=== PATIENT | male | born 1950 | race Caucasian/White ===

== ENCOUNTER → 2017-08-26 | Outpatient (CLI) | payer MEDICARE, BC | LOC: CARD 14:40 | PROVIDERS: ATTEND Family Medicine | DX: R01.1 Cardiac murmur, unspecified (principal); I35.0 Nonrheumatic aortic (valve) stenosis; Z86.73 Personal history of transient ischemic attack (TIA), and cerebral infarction without residual deficits | CPT/HCPCS: 93306 ==

== ENCOUNTER → 2017-09-30 | Outpatient (CLI) | payer MEDICARE, BC ==
--- NOTE | 2017-09-30 13:05 | Diagnostic Imaging Report ---
INDICATION: Dysphagia and prior history of stroke. TECHNIQUE: The study was performed in conjunction with Speech Pathology. Videofluoroscopy was performed during the swallowing of barium in multiple consistencies. FINDINGS: The patient ingested thin liquid as well as pur?e, mechanical soft, and solid consistencies. The oral phase is unremarkable. There is some mild early spillover with multiple consistencies. There is normal epiglottic tilt and laryngeal elevation. No penetration or aspiration was observed. A total of 1 minute 59 seconds of fluoroscopy was utilized. IMPRESSION: Essentially unremarkable modified barium swallow apart from mild early spillover and minimal vallecular residue which did clear with a second swallow. No penetration or aspiration was observed. Dictated by: Dictated on workstation # [id number]
== END ==
LOC: RAD 10:22
PROVIDERS: ATTEND Nurse Practitioner Family
DX: R13.10 Dysphagia, unspecified (principal); Z86.73 Personal history of transient ischemic attack (TIA), and cerebral infarction without residual deficits
CPT/HCPCS: 74230

== ENCOUNTER 2017-10-10 09:34 | Day surgery (SDC) | payer MEDICARE, BC ==
[~2017-10-10] VITALS: Ht 167.6 cm; Wt 86.2 kg
[2017-10-10 09:53] VITALS: BP 135/85
[2017-10-10] MEDS ORDERED: LIDOCAINE 1% INJ 20 ML 20 ML VIAL ONE ×2 (10:07→10:42)
[2017-10-10 11:08] VITALS: BP 128/62
--- NOTE | 2017-10-10 14:11 | Implantation of Loop Monitor ---
Implant of Loop Monitior PROCEDURE PHYSICIAN: Alexis Lancaster MD IMPLANTATION OF LOOP MONITOR REPORT DATE OF PROCEDURE: 10/10/17 ATTENDING PHYSICIAN: Dr. Lloyd Lancaster. REFERRING PHYSICIAN: PERFORMING PHYSICIAN: Dr. Lloyd Lancaster. INDICATION: Cryptogenic stroke. PREOP DIAGNOSIS: Cryptogenic stroke. POSTOP DIAGNOSIS: s/p implantation of loop recorder. PROCEDURE DETAILS: The patient is a 67 male with history of cryptogenic stroke. Therefore implantable loop recorder was discussed and agreed with the patient. Informed consent was taken. All risks and complications were discussed at length. The patient was draped and prepped in the usual sterile fashion. Local anesthesia was lidocaine, which was given in the substernal area close to the 4th intercostal space. Alearonik loop monitor was implanted according to the protocol. Steri-Strips were placed at the end of the procedure. There were no complications and the patient tolerated the procedure well. The device was interrogated with a voltage of 0.72mV. ANESTHESIA: Local anesthesia with lidocaine. COMPLICATIONS: None CONTRAST/FLUOROSCOPY: None CONCLUSION: 1. Successful implantation of loop monitor for cryptogenic stroke. 2. No complication and the patient tolerated the procedure well. Alexis Lancaster MD, [facility], CCDS Cardiac Electrophysiology Genesis LANCASTER MD Oct 10, 2017 2:11 pm
== END 2017-10-10 11:10 | disposition home or self-care (01) ==
LOC: CATH 09:34
PROVIDERS: ATTEND Internal Medicine Interventional Cardiology
DX: R01.1 Cardiac murmur, unspecified (principal); I69.391 Dysphagia following cerebral infarction; I69.398 Other sequelae of cerebral infarction; R26.2 Difficulty in walking, not elsewhere classified; I10 Essential (primary) hypertension; E78.5 Hyperlipidemia, unspecified; I35.0 Nonrheumatic aortic (valve) stenosis; R06.02 Shortness of breath; Z79.82 Long term (current) use of aspirin
CPT/HCPCS: 33282

== ENCOUNTER 2017-11-28 08:39 | Inpatient (IN) | payer MEDICARE, BC ==
[~2017-11-28] VITALS: Ht 167.6 cm; Wt 81.6 kg
[2017-11-28] VITALS (35 sets, daily range): BP systolic 52–180; BP diastolic 20–124
[2017-11-28] MEDS ORDERED: LIDOCAINE 1% INJ 20 ML 20 ML VIAL ONE (09:06)
[2017-11-28] MEDS ORDERED: NS IV 1000 ML 3,000 ML ONE (09:06)
[2017-11-28] MEDS ORDERED: NS IV 1000 ML 1,000 ML IV SCH (09:18)
--- OUTSIDE RECORDS SUMMARY | 2017-11-28 09:20 | XMS REPORT | CCD ---
Author Author [facility]is [facility]ado Organization [facility] Address [address] [place] [address] Phone Care Team Providers Care Field Collector Name Role Phone PP Unavailable CCM Unavailable Summary Purpose Interface Exchange Insurance Providers Payer name Policy type / Coverage type Covered constitution party ID Effective Begin Date Effective End Date WPS Medicare Part B Blue Cross/Blue Shield [id number] 2017 Unknown Blue Cross Blue Shield [facility] Blue Cross/Blue Shield [id number] 2017 Unknown Family history Sister Diagnosis Age At Onset Breast cancer Unknown Osteoporosis Unknown Arthritis Unknown Mother Diagnosis Age At Onset Osteoporosis Unknown Social History Social History Element Codes Description Effective Dates Marital status Unknown [place] 07/29/2017 Number of children Unknown 0 07/29/2017 Employment Unknown 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 Active 07/29/2017 Unknown Nonrheumatic aortic (valve) stenosis ICD-9: 424.1 ICD-10: I35.0 Active 10/30/2017 Unknown Unsteadiness on feet ICD-9: 781.2 ICD-10: R26.81 Active 10/30/2017 Unknown Aphasia ICD-9: 784.3 ICD-10: R47.01 Active 08/26/2017 Unknown Cerebral atherosclerosis ICD-9: 437.0 ICD-10: I67.2 Active 07/29/2017 Unknown Cardiac murmur, unspecified ICD-9: 785.2 ICD-10: R01.1 Active 07/29/2017 Unknown Personal history of other diseases of the circulatory system ICD-9: V12.59 ICD-10: Z86.79 Active 07/29/2017 Unknown Problems Condition Codes Effective Dates Condition Status Elevated prostate specific antigen [PSA] ICD-9: 790.93 ICD-10: R97.20 08/26/2017 Active Essential (primary) hypertension ICD-9: 401.1 ICD-10: I10 07/29/2017 Active 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 ICD-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 07/29/2017 Active Nonrheumatic aortic (valve) stenosis ICD-9: 424.1 ICD-10: I35.0 10/30/2017 Active Unsteadiness on feet ICD-9: 781.2 ICD-10: R26.81 10/30/2017 Active Aphasia ICD-9: 784.3 ICD-10: R47.01 08/26/2017 Active Cerebral atherosclerosis ICD-9: 437.0 ICD-10: I67.2 07/29/2017 Active Cardiac murmur, unspecified ICD-9: 785.2 ICD-10: R01.1 07/29/2017 Active Personal history of other diseases of the circulatory system ICD-9: V12.59 ICD-10: Z86.79 07/29/2017 Active Medications Medication Codes Instructions Start Date Stop Date Status Fill Instructions Flonase Allergy Relief 50 mcg/actuation nasal spray, suspension RxNorm: 7952272 1 [place] NASAL BID 09/17/20172017 Active Flonase Allergy Relief 50 mcg/actuation nasal spray, suspension RxNorm: 1740715 1 [place] NASAL BID 09/17/20172017 Inactive rosuvastatin 20 mg tablet RxNorm: 186623 1 Tablet(s) PO QPM 02/23/2018 Active saw palmetto 160 mg capsule RxNorm: 361403 1 Capsule(s) PO daily 07/29/2017 No Stop Date Active clopidogrel 75 mg tablet RxNorm: 652910 1 Tablet(s) PO daily 02/23/2018 Active losartan 50 mg tablet RxNorm: 708491 1 Tablet(s) PO daily 201702/23/2018 Active aspirin 81 mg tablet RxNorm: 069233 1 Tablet(s) PO daily No Start Date Active lycopene 10 mg capsule RxNorm: 717231 1 Capsule(s) PO daily No Start Date Active Vitamin D2 1,000 unit capsule RxNorm: 909910 Capsule(s) PO No Start Date Active Multivitamin 50 Plus oral RxNorm: 07450 oral No Start Date Active Medication Administered No Medication Administered data Immunizations No Immunization data Assessments Condition Codes Effective Dates Essential (primary) hypertension ICD-10: I10 ICD-9: 401.1 10/30/2017 Unsteadiness on feet ICD-10: R26.81 ICD-9: 781.2 10/30/2017 Fluency disorder following cerebral infarction ICD-10: I69.323 ICD-9: 438.14 10/30/2017 Elevated prostate specific antigen [PSA] ICD-10: R97.20 ICD-9: 790.93 10/30/2017 Nonrheumatic aortic (valve) stenosis ICD-10: I35.0 ICD-9: 424.1 10/30/2017 Aphasia ICD-10: R47.01 ICD-9: 784.3 08/26/2017 Cerebral atherosclerosis ICD-10: I67.2 ICD-9: 437.0 08/26/2017 Personal history of other diseases of the circulatory system ICD-10: Z86.79 ICD-9: V12.59 07/29/2017 Cardiac murmur, unspecified ICD-10: R01.1 ICD-9: 785.2 07/29/2017 Reason For Visit Reason For Visit Effective Dates Notes hypertension 10/30/2017 hypertension 08/26/2017 hypertension 07/29/2017 Results Observation Observation Code Item Item Code Result Date Cbc With Differential Ord2 WBC 8.58 K/ul 08/16/2017 Cbc With Differential Ord2 RBC 5.92 M/ul 08/16/2017 Cbc With Differential Ord2 HGB 18.1 g/dl 08/16/2017 Cbc With Differential Ord2 Neut% 58.7 % 08/16/2017 Cbc With Differential Ord2 HCT 54.3 % 08/16/2017 Cbc With Differential Ord2 MCV 91.7 fl 08/16/2017 Cbc With Differential Ord2 Lymph% 29.4 % 08/16/2017 Cbc With Differential Ord2 MCH 30.6 pg 08/16/2017 Cbc With Differential Ord2 [place]% 9.6 % 08/16/2017 Cbc With Differential Ord2 MCHC 33.3 pg 08/16/2017 Cbc With Differential Ord2 Eos% 2.1 % 08/16/2017 Cbc With Differential Ord2 PLT 213 K/ul 08/16/2017 Cbc With Differential Ord2 Baso% 0.2 % 08/16/2017 Cbc With Differential Ord2 RDW 13.7 % 08/16/2017 Cbc With Differential Ord2 Neut ABS# 5.04 K/ul 08/16/2017 Cbc With Differential Ord2 Lymph ABS# 2.52 K/ul 08/16/2017 Cbc With Differential Ord2 [place] ABS# 0.8 K/ul 08/16/2017 Cbc With Differential Ord2 Eos ABS# 0.2 K/ul 08/16/2017 Cbc With Differential Ord2 Baso ABS# 0.0 K/ul 08/16/2017 Lipid Ord30 CHOL 208 mg/dL 08/16/2017 Lipid Ord30 HDL 39.0 mg/dl 08/16/2017 Lipid Ord30 TRIG 161 mg/dL 08/16/2017 Lipid Ord30 LDL 137 mg/dL 08/16/2017 Lipid Ord30 C/HDL 5.3 Ratio 08/16/2017 Total Psa Ord10 PSA 33.62 ng/mL 08/16/2017 Comp Metabolic Frc735 NA 141 mEq/L 08/16/2017 Comp Metabolic Jxy523 K 3.9 mEq/L 08/16/2017 Comp Metabolic Jqo321 CL 104 mEq/L 08/16/2017 Comp Metabolic Gbw794 CO2 26.0 mEq/L 08/16/2017 Comp Metabolic Mrm447 ANION GAP 15 08/16/2017 Comp Metabolic Eqy322 GLUCOSE 115 mg/dL 08/16/2017 Comp Metabolic Wzh663 Creat 1.4 mg/dL 08/16/2017 Comp Metabolic Tro672 eGFR 55 ml/min/1.73m2 08/16/2017 Comp Metabolic Icc563 BUN 16 mg/dL 08/16/2017 Comp Metabolic Qkq373 B/C Ratio 11.8 Ratio 08/16/2017 Comp Metabolic Pxs012 CALCIUM 9.4 mg/dL 08/16/2017 Comp Metabolic Qmg902 ALK PHOS 79 U/L 08/16/2017 Comp Metabolic Owi803 AST(SGOT) 17 U/L 08/16/2017 Comp Metabolic Fdp430 ALT(SGPT) 30 U/L 08/16/2017 Comp Metabolic Qqo933 BILI T 0.6 mg/dL 08/16/2017 Comp Metabolic Kno718 ALBUMIN 4.1 g/dL 08/16/2017 Comp Metabolic Pyf473 TPRO 7.0 g/dL 08/16/2017 Comp Metabolic Ovv791 GLOB 2.9 g/dL 08/16/2017 Comp Metabolic Ejb086 A/G Ratio 1.4 Ratio 08/16/2017 Comp Metabolic Gtu924 Osmo 283 mOsmo 08/16/2017 Tsh Ord6 TSH (3rd IS) 4.22 uIU/mL 08/16/2017 Review of Systems System Result Effective Dates Constitutional No recent illness 2017 Constitutional No chills 10/30/2017 Constitutional fatigue 10/30/2017 Constitutional No fever 10/30/2017 Constitutional No malaise 10/30/2017 Eyes No blindness 10/30/2017 Eyes No vision change 10/30/2017 Ears/Nose/Throat/Neck No dizziness 2017 Ears/Nose/Throat/Neck No hearing loss Ears/Nose/Throat/Neck No hoarseness 10/30 Ears/Nose/Throat/Neck No snoring 2017 Ears/Nose/Throat/Neck No voice change Cardiovascular No chest pain/pressure Cardiovascular No edema 10/30/2017 Cardiovascular exercise intolerance 10/30 Cardiovascular fatigue 10/30/2017 Cardiovascular hypertension 10/30/2017 Respiratory No chest tightness 2017 Respiratory No cigarette smoking 2017 Respiratory No cough 10/30/2017 Gastrointestinal No abdominal pain 2017 Gastrointestinal No constipation 2017 Gastrointestinal No diarrhea 10/30/2017 Genitourinary/Nephrology No urinary urgency 10/30/2017 Genitourinary/Nephrology No urinary frequency 10/30/2017 Genitourinary/Nephrology No urinary incontinence 10/30/2017 Musculoskeletal stiffness 10/30/2017 Musculoskeletal swelling 10/30/2017 Musculoskeletal arthralgia(s) 10/30/2017 Musculoskeletal muscle weakness 2017 Dermatologic No rash 10/30/2017 Dermatologic No sores 10/30/2017 Neurologic gait abnormality 10/30/2017 Neurologic memory loss 10/30/2017 Neurologic speech difficulties 2017 Neurologic weakness 10/30/2017 Psychiatric No anxiety 10/30/2017 Psychiatric depression 10/30/2017 Constitutional No recent illness 2017 Constitutional No chills 08/26/2017 Constitutional fatigue 08/26/2017 Constitutional No fever 08/26/2017 Constitutional No malaise 08/26/2017 Eyes No blindness 08/26/2017 Eyes No vision change 08/26/2017 Ears/Nose/Throat/Neck No dizziness 2017 Ears/Nose/Throat/Neck No hearing loss 01/2018 Ears/Nose/Throat/Neck No hoarseness 08/26 Ears/Nose/Throat/Neck No snoring 2017 Ears/Nose/Throat/Neck No voice change 01/2018 Cardiovascular No chest pain/pressure 01/2018 Cardiovascular No edema 08/26/2017 Cardiovascular exercise intolerance 08/26 Cardiovascular fatigue 08/26/2017 Cardiovascular hypertension 08/26/2017 Respiratory No chest tightness 2017 Respiratory No cigarette smoking 2017 Respiratory No cough 08/26/2017 Gastrointestinal No abdominal pain 2017 Gastrointestinal No constipation 2017 Gastrointestinal No diarrhea 08/26/2017 Genitourinary/Nephrology No urinary urgency 08/26/2017 Genitourinary/Nephrology No urinary frequency 08/26/2017 Genitourinary/Nephrology No urinary incontinence 08/26/2017 Musculoskeletal stiffness 08/26/2017 Musculoskeletal swelling 08/26/2017 Musculoskeletal arthralgia(s) 08/26/2017 Musculoskeletal muscle weakness 2017 Dermatologic No rash 08/26/2017 Dermatologic No sores 08/26/2017 Neurologic gait abnormality 08/26/2017 Neurologic memory loss 08/26/2017 Neurologic speech difficulties 2017 Neurologic weakness 08/26/2017 Psychiatric No anxiety 08/26/2017 Psychiatric depression 08/26/2017 Constitutional No recent illness 2017 Constitutional No chills 07/29/2017 Constitutional fatigue 07/29/2017 Constitutional No fever 07/29/2017 Constitutional No malaise 07/29/2017 Eyes No blindness 07/29/2017 Eyes No vision change 07/29/2017 Ears/Nose/Throat/Neck No dizziness 2017 Ears/Nose/Throat/Neck No hearing loss Ears/Nose/Throat/Neck No hoarseness 07/29 Ears/Nose/Throat/Neck No snoring 2017 Ears/Nose/Throat/Neck No voice change Cardiovascular No chest pain/pressure Cardiovascular No edema 07/29/2017 Cardiovascular exercise intolerance 07/29 Cardiovascular fatigue 07/29/2017 Cardiovascular hypertension 07/29/2017 Respiratory No cough 07/29/2017 Respiratory No cigarette smoking 2017 Respiratory No chest tightness 2017 Gastrointestinal No abdominal pain 2017 Gastrointestinal No constipation 2017 Gastrointestinal No diarrhea 07/29/2017 Genitourinary/Nephrology No urinary incontinence 07/29/2017 Genitourinary/Nephrology No urinary frequency 07/29/2017 Genitourinary/Nephrology No urinary urgency 07/29/2017 Musculoskeletal stiffness 07/29/2017 Musculoskeletal arthralgia(s) 07/29/2017 Musculoskeletal swelling 07/29/2017 Musculoskeletal muscle weakness 2017 Dermatologic No rash 07/29/2017 Dermatologic No sores 07/29/2017 Neurologic gait abnormality 07/29/2017 Neurologic memory loss 07/29/2017 Neurologic speech difficulties 2017 Neurologic weakness 07/29/2017 Psychiatric No anxiety 07/29/2017 Psychiatric depression 07/29/2017 Hematologic/Lymphatic No abnormal ecchymoses 07/29/2017 Physical Exam Exam Name System Name Item Name Status Result Effective Dates Notes Full Exam - General 1994 Constitutional general appearance Development: well developed 10/30/2017 None Full Exam - General 1994 Constitutional general appearance Development: appears stated age 0810/30/2017 None Full Exam - General 1994 Constitutional general appearance Hygiene/Attention to Grooming: good hygiene 10/30/2017 None Full Exam - General 1994 Constitutional general appearance Hygiene/Attention to Grooming: normal grooming 10/30/2017 None Full Exam - General 1994 Eyes pupils and irises Overall: pupils equal, round, reactive to light and accomodation 10/30/2017 None Full Exam - General 1994 Ears/Nose/Throat otoscopic exam Overall: external auditory canals clear 10/30/2017 None Full Exam - General 1994 Ears/Nose/Throat otoscopic exam Overall: tympanic membranes clear 10/30/2017 None Full Exam - General 1994 Ears/Nose/Throat oral cavity/pharynx/larynx Overall: oral mucosa clear 10/30/2017 None Full Exam - General 1994 Ears/Nose/Throat oral cavity/pharynx/larynx Overall: oropharyngeal mucosa clear 10/30/2017 None Full Exam - General 1994 Ears/Nose/Throat oral cavity/pharynx/larynx Overall: no masses 10/30/2017 None Full Exam - General 1994 Respiratory auscultation Overall: breath sounds clear bilaterally 10/30/2017 None Full Exam - General 1994 Respiratory respiratory effort/rhythm Overall: no retractions 10/30/2017 None Full Exam - General 1994 Respiratory respiratory effort/rhythm Overall: normal rate 10/30/2017 None Full Exam - General 1994 Cardiovascular inspection of carotid pulses Carotid pulse: carotid bruit 10/30/2017 faint Full Exam - General 1994 Cardiovascular extremities Overall: no clubbing 10/30/2017 None Full Exam - General 1994 Cardiovascular auscultation of heart Overall: regular rate 10/30/2017 None Full Exam - General 1994 Cardiovascular auscultation of heart Rate: regular rate 10/30/2017 None Full Exam - General 1994 Cardiovascular auscultation of heart Systolic murmur: holosystolic 10/30/2017 None Full Exam - General 1994 Cardiovascular auscultation of heart Systolic murmur: harsh 10/30/2017 None Full Exam - General 1994 Lymphatic neck nodes Overall: anterior cervical chain benign 10/30/2017 None Full Exam - General 1994 Lymphatic neck nodes Overall: posterior cervical chain benign 10/30/2017 None Full Exam - General 1994 Musculoskeletal digits and nails Nails: elongated nail 10/30/2017 None Full Exam - General 1994 Neurologic deep tendon reflexes Overall: deep tendon reflexes intact 10/30/2017 None Full Exam - General 1994 Neurologic mental status Overall: alert 10/30/2017 None Full Exam - General 1994 Neurologic mental status Overall: oriented 10/30/2017 None Full Exam - General 1994 Neurologic gait Conventional walking: unsteady 10/30/2017 None Full Exam - General 1994 Neurologic gait Conventional walking: wide-based 10/30/2017 None Full Exam - General 1994 Neurologic cranial nerves Overall: crainial nerves 2 - 12 grossly intact 10/30/2017 None Full Exam - General 1994 Psychiatric orientation/consciousness Overall: oriented to person, place and time 10/30/2017 None Full Exam - General 1994 Psychiatric mood and affect Overall: normal mood and affect 10/30/2017 None Full Exam - General 1994 Psychiatric mood and affect Mood: happy 10/30/2017 None Full Exam - General 1994 Constitutional general appearance Development: well developed 08/26/2017 None Full Exam - General 1994 Constitutional general appearance Development: appears stated age 0608/26/2017 very difficult to understand pt's speech- tongue not appropriately mobile in mouth when talking Full Exam - General 1994 Constitutional general appearance Hygiene/Attention to Grooming: good hygiene 08/26/2017 None Full Exam - General 1994 Constitutional general appearance Hygiene/Attention to Grooming: normal grooming 08/26/2017 None Full Exam - General 1994 Eyes pupils and irises Overall: pupils equal, round, reactive to light and accomodation 08/26/2017 None Full Exam - General 1994 Ears/Nose/Throat otoscopic exam Overall: external auditory canals clear 08/26/2017 None Full Exam - General 1994 Ears/Nose/Throat otoscopic exam Overall: tympanic membranes clear 08/26/2017 None Full Exam - General 1994 Ears/Nose/Throat oral cavity/pharynx/larynx Overall: oral mucosa clear 08/26/2017 None Full Exam - General 1994 Ears/Nose/Throat oral cavity/pharynx/larynx Overall: oropharyngeal mucosa clear 08/26/2017 None Full Exam - General 1994 Ears/Nose/Throat oral cavity/pharynx/larynx Overall: no masses 08/26/2017 None Full Exam - General 1994 Respiratory auscultation Overall: breath sounds clear bilaterally 08/26/2017 None Full Exam - General 1994 Respiratory respiratory effort/rhythm Overall: no retractions 08/26/2017 None Full Exam - General 1994 Respiratory respiratory effort/rhythm Overall: normal rate 08/26/2017 None Full Exam - General 1994 Cardiovascular inspection of carotid pulses Carotid pulse: carotid bruit 08/26/2017 faint Full Exam - General 1994 Cardiovascular extremities Overall: no clubbing 08/26/2017 None Full Exam - General 1994 Cardiovascular auscultation of heart Overall: regular rate 08/26/2017 None Full Exam - General 1994 Cardiovascular auscultation of heart Rate: regular rate 08/26/2017 None Full Exam - General 1994 Cardiovascular auscultation of heart Systolic murmur: holosystolic 08/26/2017 None Full Exam - General 1994 Cardiovascular auscultation of heart Systolic murmur: harsh 08/26/2017 None Full Exam - General 1994 Lymphatic neck nodes Overall: anterior cervical chain benign 08/26/2017 None Full Exam - General 1994 Lymphatic neck nodes Overall: posterior cervical chain benign 08/26/2017 None Full Exam - General 1994 Neurologic deep tendon reflexes Overall: deep tendon reflexes intact 08/26/2017 None Full Exam - General 1994 Neurologic mental status Overall: alert 08/26/2017 None Full Exam - General 1994 Neurologic mental status Overall: oriented 08/26/2017 None Full Exam - General 1994 Neurologic gait Conventional walking: unsteady 08/26/2017 None Full Exam - General 1994 Neurologic gait Conventional walking: wide-based 08/26/2017 None Full Exam - General 1994 Neurologic cranial nerves Overall: crainial nerves 2 - 12 grossly intact 08/26/2017 None Full Exam - General 1994 Psychiatric orientation/consciousness Overall: oriented to person, place and time 08/26/2017 None Full Exam - General 1994 Psychiatric mood and affect Overall: normal mood and affect 08/26/2017 None Full Exam - General 1994 Psychiatric mood and affect Mood: happy 08/26/2017 None Full Exam - General 1994 Musculoskeletal digits and nails Nails: elongated nail 08/26/2017 None Full Exam - General 1994 Constitutional general appearance Development: well developed 07/29/2017 None Full Exam - General 1994 Constitutional general appearance Hygiene/Attention to Grooming: good hygiene 07/29/2017 None Full Exam - General 1994 Constitutional general appearance Hygiene/Attention to Grooming: normal grooming 07/29/2017 None Full Exam - General 1994 Eyes pupils and irises Overall: pupils equal, round, reactive to light and accomodation 07/29/2017 None Full Exam - General 1994 Ears/Nose/Throat otoscopic exam Overall: tympanic membranes clear 07/29/2017 None Full Exam - General 1994 Ears/Nose/Throat otoscopic exam Overall: external auditory canals clear 07/29/2017 None Full Exam - General 1994 Ears/Nose/Throat oral cavity/pharynx/larynx Overall: oropharyngeal mucosa clear 07/29/2017 None Full Exam - General 1994 Ears/Nose/Throat oral cavity/pharynx/larynx Overall: no masses 07/29/2017 None Full Exam - General 1994 Ears/Nose/Throat oral cavity/pharynx/larynx Overall: oral mucosa clear 07/29/2017 None Full Exam - General 1994 Respiratory respiratory effort/rhythm Overall: normal rate 07/29/2017 None Full Exam - General 1994 Respiratory respiratory effort/rhythm Overall: no retractions 07/29/2017 None Full Exam - General 1994 Respiratory auscultation Overall: breath sounds clear bilaterally 07/29/2017 None Full Exam - General 1994 Cardiovascular extremities Overall: no clubbing 07/29/2017 None Full Exam - General 1994 Abdomen abdominal exam Overall: no tenderness 07/29/2017 None Full Exam - General 1994 Abdomen abdominal exam Overall: normal bowel sounds 07/29/2017 None Full Exam - General 1994 Abdomen liver and spleen exam Overall: no hepatosplenomegaly 07/29/2017 None Full Exam - General 1994 Abdomen liver and spleen exam Overall: no stigmata of chronic liver disease 07/29/2017 None Full Exam - General 1994 Cardiovascular auscultation of heart Overall: regular rate 07/29/2017 None Full Exam - General 1994 Cardiovascular auscultation of heart Rate: regular rate 07/29/2017 None Full Exam - General 1994 Cardiovascular auscultation of heart Systolic murmur: holosystolic 07/29/2017 None Full Exam - General 1994 Cardiovascular auscultation of heart Systolic murmur: harsh 07/29/2017 None Full Exam - General 1994 Cardiovascular inspection of carotid pulses Carotid pulse: carotid bruit 07/29/2017 faint Full Exam - General 1994 Lymphatic neck nodes Overall: anterior cervical chain benign 07/29/2017 None Full Exam - General 1994 Lymphatic neck nodes Overall: posterior cervical chain benign 07/29/2017 None Full Exam - General 1994 Musculoskeletal digits and nails Nails: elongated nail 07/29/2017 None Full Exam - General 1994 Musculoskeletal digits and nails PIPs: swelling 07/29/2017 bilaterally Full Exam - General 1994 Musculoskeletal digits and nails MCPs: swelling 07/29/2017 bilaterally Full Exam - General 1994 Neurologic deep tendon reflexes Overall: deep tendon reflexes intact 07/29/2017 None Full Exam - General 1994 Neurologic mental status Overall: alert 07/29/2017 None Full Exam - General 1994 Neurologic mental status Overall: oriented 07/29/2017 None Full Exam - General 1994 Neurologic gait Conventional walking: wide-based 07/29/2017 None Full Exam - General 1994 Neurologic gait Conventional walking: unsteady 07/29/2017 None Full Exam - General 1994 Neurologic cranial nerves Overall: crainial nerves 2 - 12 grossly intact 07/29/2017 None Full Exam - General 1994 Psychiatric orientation/consciousness Overall: oriented to person, place and time 07/29/2017 None Full Exam - General 1994 Psychiatric mood and affect Mood: happy 07/29/2017 None Full Exam - General 1994 Psychiatric mood and affect Overall: normal mood and affect 07/29/2017 None Full Exam - General 1994 Constitutional general appearance Development: appears stated age 0507/29/2017 very difficult to understand pt's speech- tongue not appropriately mobile in mouth when talking Procedures No Procedures data Vital Signs Date Vital 10/30/2017 Blood Pressure 1: 112/74 Code : 8480-6 BMI: 30.7 Code : 04329-0 Heart Rate 1 : 120 bpm Height: 5'6" SpO2: 98% Weight: 190 lbs 08/26/2017 Blood Pressure 1: 128/84 Code : 8480-6 BMI: 30.7 Code : 89258-4 Heart Rate 1 : 91 bpm Height: 5'6" SpO2: 98% Weight: 190 lbs 07/29/2017 Blood Pressure 1: 160/84 Code : 8480-6 BMI: 30.7 Code : 90384-8 Heart Rate 1 : 120 bpm Height: 5'6" SpO2: 97% Weight: 190 lbs Functional Status No Functional Status data History of Present Illness Symptom Name Status Result Effective Date Notes hypertension Onset and Resolution ongoing 10/30/2017 None hypertension Onset of Symptom during adulthood 10/30/2017 None speech difficulties Onset and Resolution ongoing 10/30/2017 None speech difficulties Limitation on Activities moderately limits communication 10/30/2017 None speech difficulties Frequency of Episodes daily 10/30/2017 None speech difficulties Pertinent Findings gait abnormality 10/30/2017 None hypertension Quality primary hypertension 10/30/2017 None hypertension Alleviating Factors medication 10/30/2017 None hypertension Blood Pressure Values pt checking blood pressure - see scanned document 10/30/2017 -Checked by hypertension Quality intermittent 10/30/2017 None hypertension Onset and Resolution ongoing 08/26/2017 None hypertension Onset of Symptom during adulthood 08/26/2017 None hypertension Blood Pressure Values patient checking blood pressure at home - did not bring in readings 08/26/2017 -Checked occasionally gait abnormality Quality unsteady 08/26/2017 None gait abnormality Onset and Resolution ongoing 08/26/2017 None gait abnormality Pertinent Findings motor weakness 08/26/2017 None speech difficulties Onset and Resolution ongoing 08/26/2017 None speech difficulties Limitation on Activities moderately limits communication 08/26/2017 None speech difficulties Frequency of Episodes daily 08/26/2017 None speech difficulties Pertinent Findings gait abnormality 08/26/2017 None hypertension Onset and Resolution ongoing 07/29/2017 None hypertension Onset of Symptom during adulthood 07/29/2017 None hypertension Blood Pressure Values patient checking blood pressure at home - did not bring in readings 07/29/2017 -Checked occasionally gait abnormality Quality unsteady 07/29/2017 None gait abnormality Onset and Resolution ongoing 07/29/2017 None gait abnormality Pertinent Findings motor weakness 07/29/2017 None speech difficulties Onset and Resolution ongoing 07/29/2017 None speech difficulties Pertinent Findings gait abnormality 07/29/2017 None speech difficulties Frequency of Episodes daily 07/29/2017 None speech difficulties Limitation on Activities moderately limits communication 07/29/2017 None Advance Directives No Advance Directive data Encounters Encounter Performer Location Codes Date ([id number]) [id number] EST. 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 Pt has been encouraged to exercise daily. The pt has been advised to call the office if there are any acute concerns about change in blood pressure readings at home. Aortic stenosis - supportive care, keep blood pressure controlled, monitor symptoms. Unsteady on Feet - improving - however he is to continue with physical therapy for strengthening. Speech dysfunction - if we cannot find speech therapy that can go out to his house, we will have to wait until he is done with home health for outpatient speech therapy. He is still too unsteady and too much a burden for his to be able to stop home health. Elevated PSA - we have made a referral to Dr. Hartman - they have not yet gone to an appt with him due to previously owed bill that they have just now paid off. I have reiterated to his the need to have an appt EDX due to his extremely elevated PSA and the very high likelihood of cancer of the prostate. 10/30/2017 Patient Education: Patient Medication Summary Completed 10/30/2017 Visit Plan: Elevated PSA over 33 - I do not have the patients previous records, however after discussing with the patient and his - I have recommended an appointment Dr. Hartman. Hypertension - well controlled - continue with current medications, continue with no added salt diet. Pt has been encouraged to exercise daily. The pt has been advised to call the office if there are any acute concerns about change in blood pressure readings at home. Continue with Losartan at current dosing. Pt has history of stroke, neither the pt nor his can remember him having a Carotid US or ECHO while hospitalized for the stroke. I have initiated a referral to Dr. Lancaster - we had an appt scheduled after his first office visit, however the pt did not show, we could not get ahold of the patient and we have given the pt his appt for September 16. He also has an ECHO scheduled and he is to set up his Carotid ultrasound. Continue with plavix 75mg daily and crestor 20mg daily. He is to remain on the 81mg aspirin daily as well. Stroke with gross speech deficits - we will set him up for home health speech therapy. 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 He is unable to make the appt, and therefore we will get him home health with PT/OT/ SPEECH and Nursing. 08/26/2017 [facility]ment: [id number] (15 min) Moderate 08/26/2017 Patient Education: Patient Medication Summary Completed 08/26/2017 Visit Plan: Hypertension - uncontrolled - the patient's medications have been modified as documented in the visit note. The patient has been counseled to cut back on salt in diet for a no added salt diet, low fat diet, start an exercise program with low weight bearing exercises and higher aerobic activity for heart health. The patient is to check blood pressure readings as an outpatient and either fax, call, or email the readings to the office next week for practitioner to review. The pt is to call for acute concerns. Pt started on losartan 50mg daily. Pt has history of stroke, neither the pt nor his can remember him having a Carotid US or ECHO while hospitalized for the stroke. Since it has been several years and he has gotten progressively more decompensated, I have recommended that he needs to have an up to date carotid and echo and I have also recommended that he needs to be seen by a Vendor Manager for stress testing - he will have to have a chemical stress test - I have initiated a referral to Dr. Lancaster. Today I have initiated plavix 75mg daily and crestor 20mg daily. He is to remain on the 81mg aspirin daily as well. Stroke with gross speech deficits - I have also recommended a referral to [facility] for speech therapy. 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 RTC in one month for re-evaluation. Pt to have fasting labs - RX for labs given to pt's . I spent over an 45minutes with the pt and his in consultation and evaluation and review of his history. 07/29/2017 Appointment: [phone] [id number] New Patient 07/29/2017 Patient Education: Patient Medication Summary Completed 07/29/2017 Instructions Comment [id number] - ask for the via [facility] [place] coordinator. [facility] to call you . Elevated PSA over 33 - I do not have the patients previous records, however after discussing with the patient and his - I have recommended an appointment Dr. Hartman. Hypertension - well controlled - continue with current medications, continue with no added salt diet. Pt has been encouraged to exercise daily. The pt has been advised to call the office if there are any acute concerns about change in blood pressure readings at home. Continue with Losartan at current dosing. Pt has history of stroke, neither the pt nor his can remember him having a Carotid US or ECHO while hospitalized for the stroke. I have initiated a referral to Dr. Lancaster - we had an appt scheduled after his first office visit, however the pt did not show, we could not get ahold of the patient and we have given the pt his appt for September 16. He also has an ECHO scheduled and he is to set up his Carotid ultrasound. Continue with plavix 75mg daily and crestor 20mg daily. He is to remain on the 81mg aspirin daily as well. Stroke with gross speech deficits - we will set him up for home health speech therapy. 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 He is unable to make the appt, and therefore we will get him home health with PT/OT/SPEECH and Nursing. . Hypertension - uncontrolled - the patient's medications have been modified as documented in the visit note. The patient has been counseled to cut back on salt in diet for a no added salt diet, low fat diet, start an exercise program with low weight bearing exercises and higher aerobic activity for heart health. The patient is to check blood pressure readings as an outpatient and either fax , call, or email the readings to the office next week for practitioner to review. The pt is to call for acute concerns. Pt started on losartan 50mg daily. Pt has history of stroke, neither the pt nor his can remember him having a Carotid US or ECHO while hospitalized for the stroke. Since it has been several years and he has gotten progressively more decompensated, I have recommended that he needs to have an up to date carotid and echo and I have also recommended that he needs to be seen by a Vendor Manager for stress testing - he will have to have a chemical stress test - I have initiated a referral to Dr. Lancaster. Today I have initiated plavix 75mg daily and crestor 20mg daily. He is to remain on the 81mg aspirin daily as well. Stroke with gross speech deficits - I have also recommended a referral to [facility] for speech therapy. 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 RTC in one month for re-evaluation. Pt to have fasting labs - RX for labs given to pt's . I spent over an 45minutes with the pt and his in consultation and evaluation and review of his history. . Hypertension - well controlled - continue with current medications, continue with no added salt diet. Pt has been encouraged to exercise daily. The pt has been advised to call the office if there are any acute concerns about change in blood pressure readings at home. Aortic stenosis - supportive care, keep blood pressure controlled, monitor symptoms. Unsteady on Feet - improving - however he is to continue with physical therapy for strengthening. Speech dysfunction - if we cannot find speech therapy that can go out to his house, we will have to wait until he is done with home health for outpatient speech therapy. He is still too unsteady and too much a burden for his to be able to stop home health. Elevated PSA - we have made a referral to Dr. Hartman - they have not yet gone to an appt with him due to previously owed bill that they have just now paid off. I have reiterated to his the need to have an appt DEX due to his extremely elevated PSA and the very high likelihood of cancer of the prostate.
[2017-11-28 09:29] LABS: HEMOGLOBIN 15.9 G/DL (13.3-17.7); MEAN PLATELET VOLUME 10.2 FL (7.4-10.4); RED BLOOD COUNT 5.2 10^6/uL (4.35-5.85); RED CELL DISTRIBUTION WIDTH 13.5 % (10.0-14.5); WHITE BLOOD COUNT 7.3 10^3/uL (4.3-11.0)
[2017-11-28] MEDS: NS IV 1000 ML 1,000 ML IV SCH ×3 (09:30→20:08)
[2017-11-28 09:45] LABS: PROTHROMBIN TIME PATIENT 12.6 SEC (12.2-14.7)
[2017-11-28] MEDS ORDERED: MIDAZOLAM 5 MG/5 ML (VERSED) VIAL ONE (09:46)
[2017-11-28] MEDS ORDERED: fentaNYL INJECTION 100 MCG/2 ML AMP ONE ×2 (09:46→22:28)
[2017-11-28] MEDS ORDERED: HEParin 1000 UNIT/ML (10ML VIAL) FOR BOLUS ONE (09:47)
[2017-11-28] MEDS ORDERED: VERAPAMIL 5 MG/2 ML (CALAN) VIAL IV ONE (09:48)
[2017-11-28] MEDS ORDERED: NITRO DRIP 25000 MCG/D5W 250 ML IV ONE (09:48)
[2017-11-28 09:51] LABS: ALBUMIN 4.1 GM/DL (3.2-4.5); BILIRUBIN,TOTAL 0.6 MG/DL (0.1-1.0); CALCIUM 9.9 MG/DL (8.5-10.1); CREATININE SERUM 1.28 MG/DL (0.60-1.30); POTASSIUM 4.1 MMOL/L (3.6-5.0); TOTAL PROTEIN 7.2 GM/DL (6.4-8.2)
[2017-11-28] MEDS ORDERED: SAW450CA7 PO (09:52)
[2017-11-28] MEDS ORDERED: MULT-517 PO (09:54)
[2017-11-28] MEDS ORDERED: CHOL500044 PO (09:55)
[2017-11-28] MEDS ORDERED: CLOP75TA28 PO (09:56)
[2017-11-28] MEDS ORDERED: ASPI-586 PO (09:56)
[2017-11-28] MEDS ORDERED: ROSU20TA31 PO (09:56)
[2017-11-28] MEDS ORDERED: LOSA50TA7 PO (09:57)
--- NOTE | 2017-11-28 10:16 | Cardiac Procedure Note-CS/ASA ---
Pre-Procedure Note Pre-Op Procedure Note H&P Reviewed The H&P was reviewed, patient examined and no changes noted. Date H&P Reviewed: Nov 28, 2017 Time H&P Reviewed: 10:15 Conscious Sedation Pre-Proced Time Reviewed: 10:15 ASA Class: 3 Airway Mallampati Classification: ([place] appropriate class) I. II. III, IV Lungs Heart ASA score ASA 1: a normal healthy patient ASA 2: a patient with a mild systemic disease (mid diabetes, controlled hypertension, obesity ASA 3: a patient with a severe systemic disease that limits activity (angina , COPD, prior Myocardial infarction) ASA 4: a patient with an incapacitating disease that is a constant threat to life (CHF, renal failure) ASA 5: a moribund patient not expected to survive 24 hrs. (ruptured aneurysm) ASA 6: a declared brain patient whose organs are being harvested. For emergent operations, add the letter E after the classification Grade 1 Sedation Plan: Analgesia, Amnesia, Plan communicated to team members, Discussed options with patient/fam, Discussed risks with patient/fam Note The patient is an appropriate candidate to undergo the planned procedure, sedation, and anesthesia. The patient immediately re-assessed prior to indication. Genesis SANTANA MD Nov 28, 2017 10:16
--- NOTE | 2017-11-28 11:32 | Coronary Angiography Report ---
Coronary Angiography Report DATE OF PROCEDURE: 11/28/17 INDICATION: Shortness of breath, stroke, paroxysmal atrial fibrillation, abnormal nuclear stress test. PREOPERATIVE DIAGNOSIS: Shortness of breath, stroke, paroxysmal atrial fibrillation, abnormal nuclear stress test POSTOPERATIVE DIAGNOSIS: 1. Severe three-vessel CAD. 2. Paroxysmal atrial fibrillation. 3. Mild to moderate aortic stenosis. HISTORY: This is a 67-year-old male with history of stroke. Implantable loop recorder showed paroxysmal atrial fibrillation. Patient also complains of significant shortness of breath. He has history of hypertension and hyperlipidemia but denies diabetes. Previous smoker. Echocardiogram showed normal LV function with mild to moderate aortic stenosis with mean gradient of 17 mmHg and aortic valve area of 1.69 cm. Mild diastolic dysfunction. Nuclear stress test showed moderate sized reversible inferior apical ischemia. Coronary angiography was therefore recommended. PROCEDURES PERFORMED: 1.Coronary angiography. 2.Left heart catheterization. COMPLICATIONS: None. SPECIMENS: None. ESTIMATED BLOOD LOSS: 10 mL ANESTHESIA: Conscious sedation ANTICOAGULATION: IV heparin CONTRAST: 140 cc. FLUOROSCOPY: 10 minutes. FLOUROSCOPY DOSE: 1072 mgy. PROCEDURE DETAILS: The patient is a 67 male and was brought to the metallurgical laboratory assistant after informed consent was taken. All the risks and complications were explained in detail; this included the risk of bleeding, vascular damage, stroke , [place] and even . The patient was draped and prepped in the usual sterile fashion. Access was gained in the right radial artery with a 6 [place] sheath. However there was significant tortuosity in the brachiocephalic artery and insertion into the aortic arch. Catheter manipulation was very difficult therefore coronary angiography could not be performed. Left heart catheterization was performed with the [place] catheter. Access was gained in the right femoral artery with a 5 [place] sheath. Coronary angiography was performed with a JR4 catheter and a JL4 catheter. FINDINGS: 1.Left main: Patent. 2.LAD: Severe mid LAD stenosis with moderate to severe ostial stenosis of a large first diagonal artery. Stenosis severity 95 percent. There is another moderate to severe distal LAD stenosis. 3.Left circumflex artery: A large first OM artery has severe stenosis in the proximal segment and then immediately divides into 2 large branches. Stenosis severity 90 percent. 4.RCA: Posterior origin. Severe stenosis in the proximal/midsegment. Stenosis severity 95 percent. 5.Left heart catheterization: Aortic pressure 100/69 mmHg. LV pressure 108/16 mmHg. LVEDP 13 mmHg. Normal LV function with no wall motion abnormalities. CONCLUSIONS: Severe three-vessel havasupai CAD with bifurcation disease in the mid LAD and first OM artery. Severe proximal/mid RCA disease. I believe the best option to explore first is cardiac surgery. The patient also has history of atrial fibrillation and I will recommend left atrial appendage closure and maze procedure during cardiac surgery. Mild aortic stenosis on echo with mean gradient of 17 mmHg. I will make arrangement for the patient to see as an outpatient cardiac surgery at . Alexis Lancaster MD, FACP, FACC, [facility] Interventional Cardiology Genesis ALNCASTER MD Nov 28, 2017 11:32 am
[2017-11-28] MEDS ORDERED: APIX5TAB PO (11:38)
[2017-11-28] MEDS ORDERED: PATIENT MAY USE OWN MEDS, ALL PO SCH (11:45)
--- NOTE | 2017-11-28 11:45 | Discharge Inst-Post CATH ---
Discharge Inst-CATH Post Cardiac Cath D/C Inst Follow Up/Plan Dr Lancaster in two to three weeks. CARDIAC CATH DISCHARGE INSTRUCTIONS *Hold Metformin for 48 hours post heart cath. ACTIVITY * Go Home directly and rest. * Limit activity of the leg (or wrist if it was used) for 7 days including aerobics, swimming, jogging, bicycling, etc. * Restrict stair-climbing for 7 days if possible, if not, climb up with your non -cath leg, then bring together on the same step. * Avoid lifting, pushing, pulling or excessive movement of the affected extremity for 7 days. * Customary sexual activity may be resumed after 2 days-use caution not to use a position that strains or causes pain to the affected extremity. * No driving for 24 hours. * NO SMOKING. * Avoid straining for bowel movements for 7 days. * Gentle walking on level ground is allowed. * Returning to work will depend on the type of procedure and the results. Your doctor will discuss this with you. CALL YOUR DOCTOR FOR ANY OF THE FOLLOWING: *If bleeding from the puncture site occurs- Apply gentle pressure to site with clean cloth and call your doctor or EMS. * If a knot or lump forms under the skin, increases in size, or causes pain. * If bruising appears to be worsening or moving further down your leg instead of disappearing. * Temperature above 101 F. CARE OF YOUR GROIN INCISION; * Bruising or purple discoloration of the skin near the puncture site is common. * You may shower only, no bathtub bathing for 5 days. Be careful to avoid slipping as your leg may feel stiff. * If a closure device was used on your femoral artery, please see the attached guide regarding care of the device and your leg. * REMOVE the dressing from your groin the next day after your procedure in the shower. CARE OF YOUR WRIST INCISION; * Bruising or purple discoloration of the skin near the puncture site is common. * You may shower. * DO NOT submerge wrist. * Remove dressing in 24 hours. Genesis LANCASTER MD Nov 28, 2017 11:45 am
--- NOTE | 2017-11-28 11:54 | Cardiology Discharge Summary ---
Diagnosis/Chief Complaint Date of Admission 11/28/2017 Date of Discharge 11/28/2017 Admission Diagnosis CVA, paroxysmal atrial fibrillation, shortness of breath, abnormal nuclear stress test. Final/Discharge Diagnosis Severe three-vessel CAD. Chief Complaint/HPI Chief Complaint/HPI This is a 67-year-old male with history of stroke. Implantable loop recorder showed paroxysmal atrial fibrillation. Patient also complains of significant shortness of breath. He has history of hypertension and hyperlipidemia but denies diabetes. Previous smoker. Echocardiogram showed normal LV function with mild to moderate aortic stenosis with mean gradient of 17 mmHg and aortic valve area of 1.69 cm. Mild diastolic dysfunction. Nuclear stress test showed moderate sized reversible inferior apical ischemia. Coronary angiography was therefore recommended. Discharge Summary Procedures Coronary angiography showed severe three-vessel disease which includes severe mid LAD stenosis which involves the ostium often large first diagonal artery, severe stenosis of a large OM1 artery which divides into 2 large branches, severe proximal to mid RCA stenosis. Discharge Physical Examination Stable. Hospital Course Unremarkable. Pending Labs Laboratory Tests 11/28/17 09:24: White Blood Count 7.3, Red Blood Count 5.20, Hemoglobin 15.9, Hematocrit 47, Mean Corpuscular Volume 91, Mean Corpuscular Hemoglobin 31, Mean Corpuscular Hemoglobin Concent 34, Red Cell Distribution Width 13.5, Platelet Count 212, Mean Platelet Volume 10.2, Prothrombin Time 12.6, INR Comment 1.0, Activated Partial Thromboplast Time 30, Sodium Level 137, Potassium Level 4.1, Chloride Level 104, Carbon Dioxide Level 23, Anion Gap 10, Blood Urea Nitrogen 20, Creatinine 1.28, Estimat Glomerular Filtration Rate 56, BUN/Creatinine Ratio 16 , Glucose Level 104, Calcium Level 9.9, Corrected Calcium 9.8, Total Bilirubin 0.6, Aspartate Amino Transf (AST/SGOT) 24, Alanine Aminotransferase (ALT/SGPT) 40, Alkaline Phosphatase 75, Total Protein 7.2, Albumin 4.1, Triglycerides Level 132, Cholesterol Level 151, LDL Cholesterol Direct 97, VLDL Cholesterol 26 , HDL Cholesterol 37 Discussion & Recommendations Discussion Discussed at length with the patient. Cardiac surgery is recommended for severe three-vessel CAD. Patient also has atrial fibrillation, I will recommend surgical left atrial appendage closure and possibly maze procedure. Mild aortic stenosis will be followed clinically. Follow up appt.: Dr. Lancaster in 3 weeks. Dicharge Diet: Cardiac Diet Home Medications Reviewed patient Home Medication Reconciliation performed by pharmacy medication reconciliations ski technician and/or nursing. Patients Allergies have been reviewed. Discharge Home Medications: Reviewed and agree with Discharge Medication list on patient's Discharge Instruction sheet Condition at discharge Stable. Instructions to patient/family Dr Lancaster in two to three weeks. Genesis LANCASTER MD Nov 28, 2017 11:54 am
[2017-11-28] MEDS ORDERED: ATROPINE INJECTION 1 MG/10 ML SYR (ABBOTT) ONE (12:12)
[2017-11-28] MEDS ORDERED: ONDANSETRON 4 MG/2 ML (SDV) Z0FRAN ONE (22:28)
[2017-11-28] MEDS: fentaNYL INJECTION 100 MCG/2 ML AMP IV PRN ×2 (22:30→23:11)
[2017-11-28] MEDS ORDERED: ONDANSETRON 4 MG/2 ML (SDV) Z0FRAN IV ONE (22:45)
[2017-11-29] VITALS (14 sets, daily range): BP systolic 100–159; BP diastolic 56–88
[2017-11-29] MEDS: fentaNYL INJECTION 100 MCG/2 ML AMP IV PRN ×4 (00:02→03:32)
[2017-11-29 04:11] LABS: BASOPHILS % (AUTO) 0 % (0-10); EOSINOPHILS % (AUTO) 0 % (0-10); HEMATOCRIT 33 % (40-54); HEMOGLOBIN 11.3 G/DL (13.3-17.7); LYMPHOCYTES # (AUTO) 1.2 X 10^3 (1.0-4.0); LYMPHOCYTES % (AUTO) 7 % (12-44); MEAN CORPUSCULAR HEMOGLOBIN 32 PG (25-34); MEAN CORPUSCULAR HGB CONC 34 G/DL (32-36); MEAN CORPUSCULAR VOLUME 92 FL (80-99); MEAN PLATELET VOLUME 10.8 FL (7.4-10.4); MONOCYTES # (AUTO) 1.1 X 10^3 (0.0-1.0); MONOCYTES % (AUTO) 7 % (0-12); NEUTROPHILS # (AUTO) 13.3 X 10^3 (1.8-7.8); NEUTROPHILS % (AUTO) 86 % (42-75); PLATELET COUNT 225 10^3/uL (130-400); RED BLOOD COUNT 3.57 10^6/uL (4.35-5.85); RED CELL DISTRIBUTION WIDTH 13.3 % (10.0-14.5); WHITE BLOOD COUNT 15.6 10^3/uL (4.3-11.0)
[2017-11-29 04:32] LABS: CALCIUM 8.6 MG/DL (8.5-10.1); CREATININE SERUM 2.64 MG/DL (0.60-1.30); PHOSPHORUS 3.5 MG/DL (2.3-4.7)
[2017-11-29 04:50] LABS: BAND NEUTROPHILS 0 %; BASOPHILS % (MANUAL) 0 %; EOSINOPHILS % (MANUAL) 0 %; LYMPHOCYTES % (MANUAL) 7 %; MONOCYTES % (MANUAL) 2 %; NEUTROPHILS % (MANUAL) 91 %; TOXIC GRANULATION/VACUOLAZATIO 1+
[2017-11-29] MEDS ORDERED: ONDANSETRON 4 MG/2 ML (SDV) Z0FRAN ONE (04:55)
[2017-11-29] MEDS ORDERED: PANTOPRAZOLE 40 MG (PROTONIX) VIAL ONE (04:56)
[2017-11-29] MEDS: NS IV 1000 ML 1,000 ML IV SCH ×4 (05:12→11:01)
[2017-11-29] MEDS ORDERED: NS IV 1000 ML 1,000 ML IV ONE (05:30)
[2017-11-29] MEDS ORDERED: ONDANSETRON 4 MG/2 ML (SDV) Z0FRAN IV ONE (05:30)
[2017-11-29] MEDS ORDERED: POTASSIUM CL 10MEQ/50ML IVPB 50 ML IV SCH (06:00)
[2017-11-29] MEDS ORDERED: MAGNESIUM 1 GM/100 ML IVPB 100 ML IV SCH (06:00)
[2017-11-29] MEDS ORDERED: KCL 20 MEQ TAB (K-DUR) PO SCH (06:00)
[2017-11-29] MEDS: PANTOPRAZOLE 40 MG (PROTONIX) VIAL IV SCH ×2 (06:05→08:49)
--- NOTE | 2017-11-29 07:39 | Diagnostic Imaging Report ---
INDICATION: Shortness of air. COMPARISON: 08/01/2009. FINDINGS: Low lung volumes with asymmetric elevation right hemidiaphragm are unchanged. Visualized lungs are clear. Posterior lower lobes are poorly evaluated by portable radiography. No pleural effusion or pneumothorax. Stable cardiomediastinal silhouette without substantial cardiomegaly. IMPRESSION: No acute cardiopulmonary process by portable radiography. Dictated by: Dictated on workstation # [id number]
--- NOTE | 2017-11-29 08:40 | Consultation ---
History of Present Illness History of Present Illness Patient Consulted On(liz/time) 11/29/17 08:38 Date Seen by Provider: Nov 29, 2017 Time Seen by Provider: 08:55 Reason for Visit: CORONARY ARTERY DISEASE History of Present Illness PT IS A 67 Y/O MALE WHO IS A NEW PATIENT TO MY PRACTICE OF JULY 2017. HE HAD PREVIOUSLY BEEN SEEN BY A PHYSICIAN IN [place] WHO HAD BEEN TREATING HIS HIGH BLOOD PRESSURE, HOWEVER HIS REPORTED THAT NORA HAD BEEN PROGRESSIVELY DECLINING PHYSICALLY AND FUNCTIONALLY. SHE REPORTED THAT HE HAD A "WARNING STROKE" ABOUT 5 YEARS AGO AND WAS NEVER STARTED ON ANY TREATMENT MEDICATIONS. THEY REPORT NOT KNOWING OF A CAROTID ULTRASOUND, ECHOCARDIOGRAM, AND NEVER HAVING A REFERRAL TO A SERVICE SECRETARY. AT THAT TIME I SENT A REFERRAL TO DR. SANTANA - THE PATIENT AND HIS WERE VERY DIFFICULT TO GET A HOLD OF AND HE MISSED A FEW APPOINTMENTS WE HAD MADE FOR HIS INITIAL WORK-UP WITH DR. SANTANA, AND AT HIS FOLLOW UP APPOINTMENT THE NEXT MONTH, WE WERE FINALLY ABLE TO GET HIS TO AGREE TO THE APPT WITH DR. SANTANA AND THE FURTHER WORK- UP WE HAD PLANNED. DR. SANTANA DID A STRESS TEST WHICH WAS POSITIVE AND HE ALSO DID FURTHER INVESTIGATION WHICH SHOWED ATRIAL FIBRILLATION. ON 11/28/17 DR. SANTANA DID A CARDIAC CATHETERIZATION WHICH WAS POSITIVE FOR MULTIFOCAL DISEASE AND HE WAS ATTEMPTING TO TRANSFER THE PT TO FOR FURTHER TREATMENT, BUT DECLINED DUE TO NOT KNOWING THE EXACT DATE OF NORA'S PREVIOUS STROKE AND NOT BEING ABLE TO DO OPEN HEART SURGERY SOON AFTER A STROKE. Allergies and Home Medications Allergies Coded Allergies: No Known Drug Allergies (Unverified , 08/05/09) Home Medications Apixaban 5 Mg Tablet, 5 MG PO BID TAKE 2 TABLETS BID X 7 DAYS, THEN 1 TABLET BID Prescribed by: Genesis SANTANA on 11/28/17 1138 Aspirin 81 Mg Tablet., 81 MG PO DAILY, (Reported) Cholecalciferol (Vitamin D3) 5,000 Unit Tablet, 5,000 UNIT PO DAILY, (Reported) Clopidogrel Bisulfate 75 Mg Tablet, 75 MG PO DAILY, (Reported) Losartan Potassium 50 Mg Tablet, 50 MG PO DAILY, (Reported) Multivitamin 1 Each Tablet, 1 EACH PO DAILY, (Reported) Rosuvastatin Calcium 20 Mg Tablet, 20 MG PO HS, (Reported) Saw [place] Fruit 450 Mg Capsule, 900 MG PO BID, (Reported) Patient Home Medication List Home Medication List Reviewed: Yes Past [id number] Hx Past Med/Social Hx: Reviewed Nursing Past Med/Soc Hx, Reviewed and Corrections made Patient Social History Alcohol Use: Past History Recreational Drug Use: No Smoking Status: Former Smoker Former Smoker, Quit: Nov 28, 2009 2nd Hand Smoke Exposure: No Recent Foreign Travel: No Contact w/Someone Who Travel: No Recent Infectious Disease Expo: No Recent Hopitalizations: No Physical Abuse: No Sexual Abuse: No Mistreated: No Fear: No Immunizations Up To Date Tetanus Booster (TDap): Unknown Seasonal Allergies Seasonal Allergies: No Past Medical History Respiratory: No Currently Using CPAP: No Currently Using BIPAP: No Cardiac: No Atrial Fibrillation, High Cholesterol, Hypertension Neurological: Yes Stroke Reproductive Disorders: No Sexually Transmitted Disease: No HIV/AIDS: No Genitourinary: Yes (PSA OF 33) Benign Prostatic Hyperpl Gastrointestinal: No Musculoskeletal: Yes Arthritis Endocrine: No Are Your Blood Sugars Over 250: No HEENT: No Loss of Vision: Denies Hearing Impairment: Denies Cancer: Yes Prostate Did You Recieve Any Treatments: No Psychosocial: No Integumentary: No Blood Disorders: No Adverse Reaction/Blood Tranf: No Family Medical History Reviewed Nursing Family Hx Hypertension Review of Systems-General Constitutional: No chills, No fever, No malaise; weakness EENTM: No hearing loss, No hoarseness, No throat swelling Respiratory: No cough, No short of breath Cardiovascular: No chest pain; Hx of Intervention; No palpitations Gastrointestinal: No abdominal pain, No constipation, No diarrhea, No nausea; vomiting (LAST NIGHT) Genitourinary: other ([place] IN PLACE) Musculoskeletal: muscle weakness, other (RIGHT HAND WEAKNESS) Skin: no symptoms reported Psychiatric/Neurological: Pre-Existing Deficit (RIGHT SIDED WEAKNESS), Weakness (GENERALIZED WEAKNESS, GAIT INSTABILITY - BUT IMPROVED OVER THE PAST FEW MONTHS), Other (SPEECH DIFFICULTY - BUT IMPROVED OVER THE PAST FEW MONTHS) All Other Systems Reviewed Negative Unless Noted: Yes Physical Exam-General Problems Physical Exam Vital Signs Vital Signs - First Documented 11/28/17 11/29/17 09:25 08:31 Temp 98.7 Pulse 77 Resp 16 B/P (MAP) 128/83 (98) Pulse Ox 95 O2 Delivery Room Air O2 Flow Rate 2.00 Capillary Refill : Less Than 3 Seconds General Appearance: WD/WN, no apparent distress HEENT: PERRL/EOMI, pharynx normal Neck: non-tender, supple, normal inspection Respiratory: chest non-tender, lungs clear, normal breath sounds Cardiovascular: regular rate, rhythm, systolic murmur Gastrointestinal: normal bowel sounds, non tender, soft, no organomegaly, no pulsatile mass Rectal: deferred Genital/Rectal: other ([place] IN PLACE) Back: normal inspection Extremities: normal range of motion, no pedal edema, no calf tenderness, normal capillary refill Neurologic/Psychiatric: alert, normal mood/affect, oriented x 3, other (SLOW SPEECH WITH SOME IMPROVEMENT IN HIS GARBLED SPEECH - INCREASED EFFORT ON PART OF PATIENT TO COMMUNICATE) Skin: warm/dry, ecchymosis (RIGHT UPPER EXTREMITY) Lymphatic: no adenopathy Assessment/Plan Assessment/Plan Admission Diagnosis/Plan CORONARY ARTERY DISEASE ATRIAL FIBRILLATION HYPERTENSION AORTIC STENOSIS HX OF STROKE WITH CHRONIC DEBILITY SPEECH DIFFICULTIES CORONARY ARTERY DISEASE - STATUS POST HEART CATHETERIZATION - REPORT FROM DR. SANTANA FOLLOWS: FINDINGS: 1.Left main: Patent. 2.LAD: Severe mid LAD stenosis with moderate to severe ostial stenosis of a large first diagonal artery. Stenosis severity 95 percent. There is another moderate to severe distal LAD stenosis. 3.Left circumflex artery: A large first OM artery has severe stenosis in the proximal segment and then immediately divides into 2 large branches. Stenosis severity 90 percent. 4.RCA: Posterior origin. Severe stenosis in the proximal/midsegment. Stenosis severity 95 percent. 5.Left heart catheterization: Aortic pressure 100/69 mmHg. LV pressure 108/16 mmHg. LVEDP 13 mmHg. Normal LV function with no wall motion abnormalities. CONCLUSIONS: Severe three-vessel [place] CAD with bifurcation disease in the mid LAD and first OM artery. Severe proximal/mid RCA disease. I believe the best option to explore first is cardiac surgery. The patient also has history of atrial fibrillation and I will recommend left atrial appendage closure and maze procedure during cardiac surgery. Mild aortic stenosis on echo with mean gradient of 17 mmHg. ATRIAL FIBRILLATION - CAUGHT ON RECENT MONITORING - CONTINUE WITH ELIQUIS AND RATE CONTROL. HYPERTENSION - DEFER TO DR. SANTANA - WILL NEED TO BE ADJUSTED ON DISCHARGE EITHER FROM [facility] OR DEPENDING ON THE PLANS ON TRANSFER FOR OPEN HEART SURGERY VERSUS OUTPATIENT APPT WITH . AORTIC STENOSIS - SUPPORTIVE CARE ONLY AT THIS TIME HX OF STROKE WITH CHRONIC DEBILITY AND SPEECH DIFFICULTIES - HE WILL NEED TO CONTINUE WITH SPEECH THERAPY ON DISCHARGE - SUPPORTIVE CARE ONLY AT THIS TIME. RENAL INJURY - LIKELY DUE TO HYPOTENSIVE EPISODE YESTERDAY - IV FLUIDS, REPEAT LABS, KEEP BLOOD PRESSURE ABOVE 120 SYSTOLIC AND 60 DIASTOLIC. ANEMIA - CONCERN FOR POSSIBLE GI BLEEDING - STARTED PPI IV AND STARTED ON CARAFATE, MONITOR CBC. THANK YOU FOR THE CONSULT. Admission Status: Inpatient Order (span 2 midnights) Reason for Inpatient Admission: coronary artery disease with extensive DISEASE PROCESS - PLANNING ON POSSIBLE TRANSFER - IF NOT TRANSFERED TO , THEN WILL HAVE TO KEEP PT AT [facility] FOR MONITORING OF RENAL FUNCTION AND BLOOD PRESSURE JACQUELYN REAL MD Nov 29, 2017 08:40
[2017-11-29] MEDS: SUCRALFATE 1 GM (CARAFATE) TAB PO SCH ×2 (08:49→12:13)
[2017-11-29 09:10] LABS: HEMOGLOBIN 9.9 G/DL (13.3-17.7)
--- NOTE | 2017-11-29 09:53 | Cardiology Progress Note ---
Cardiology SOAP Progress Note Subjective: No chest pain. No further episodes of second degree AV block. Objective: I&O/Vital Signs 11/29/17 11/29/17 11/29/17 11/29/17 04:00 04:00 05:00 06:00 Temp 99.7 Pulse 112 120 106 Resp 28 26 22 B/P (MAP) 100/88 (92) 112/73 (86) 119/62 (81) Pulse Ox 98 98 100 O2 Delivery Room Air Room Air Room Air 11/29/17 11/29/17 11/29/17 11/29/17 06:00 07:00 07:00 08:00 Temp 98.0 Pulse 113 113 125 Resp 24 28 B/P (MAP) 137/78 (97) 159/64 (95) Pulse Ox 94 97 O2 Delivery Nasal Cannula Nasal Cannula O2 Flow Rate 2.00 2.00 11/29/17 11/29/17 11/29/17 11/29/17 08:31 09:00 10:00 10:11 Temp 98.9 Pulse 115 Resp 21 B/P (MAP) 150/62 (91) 111/70 (84) Pulse Ox 100 O2 Delivery Nasal Cannula Nasal Cannula O2 Flow Rate 2.00 2.00 11/29/17 11/29/17 11/29/17 11/29/17 11:00 11:02 12:00 13:00 Temp 98.6 Pulse 106 113 117 Resp 27 20 B/P (MAP) 114/69 (84) 128/79 (95) Pulse Ox 99 100 O2 Delivery Nasal Cannula Nasal Cannula Nasal Cannula O2 Flow Rate 2.00 2.00 2.00 11/29/17 13:00 Pulse 115 Resp 23 B/P (MAP) Pulse Ox 100 O2 Delivery Nasal Cannula O2 Flow Rate 2.00 Weight (Pounds): 180 Weight (Ounces): 0.0 Weight (Calculated Kilograms): 81.453108 Side: right Groin site without hematoma: Yes Constitutional: No appears stated age; AAO x 3; No apparent distress, No PERRL , No well-developed, No well-nourished, No other Respiratory: No accessory muscle use, No respiratory distress, No chest tender , No chest expansion is symmetric; chest is bilaterally symmetric; No lungs clear to percussion; lungs clear to auscultation; No crackles, No rhonchi, No rales, No stridor, No wheezing, No pleural rub, No other Cardiovascular: regular rate-rhythm; No irregularly irregular, No extra beats, No parasternal heave is noted, No JVD, No edema, No bradycardia, No tachycardia , No point of maximal impulse, No cardiac thrills are palpable; S1 and S2; No gallop/S3, No gallop/S4, No diastolic murmur, No systolic murmur, No friction rub, No click, No other Gastrointestional: No tender, No soft, No round, No distended, No pulsatile mass, No organomegaly, No guarding, No rebound, No tenderness, No hernia, No mass, No audible bowel sounds, No abnormal bowel sounds, No abdominal bruits, No spleenomegaly, No other Extremities: No normal range of motion, No non-tender, No normal inspection, No pedal edema, No calf tenderness, No normal capillary refill, No pelvis stable , No calf tenderness, No inflammation, No pedal edema, No slow capillary refill , No swelling, No other, No abrasion, No clubbing, No cyanosis, No ecchymosis, No laceration, No no lower extremity edema bilateral, No significant edema, No tenderness, No wound Neurologic/Psychiatric: no motor/sensory deficits, alert, normal mood/affect, oriented x 3 Skin: No normal color, No warm/dry, No cyanosis, No cool, No diaphoresis, No damp, No ecchymosis, No jaundice, No mottled, No pallor, No rash, No tattoos/ piercings, No ulcerations, No rash on exposed areas, No ulcerations on exposed areas, No other Results/Procedures: Labs Laboratory Tests 11/29/17 03:33: White Blood Count 15.6H, Red Blood Count 3.57L, Hemoglobin 11.3#L, Hematocrit 33L, Mean Corpuscular Volume 92, Mean Corpuscular Hemoglobin 32, Mean Corpuscular Hemoglobin Concent 34, Red Cell Distribution Width 13.3, Platelet Count 225, Mean Platelet Volume 10.8H, Neutrophils (%) (Auto) 86H, Lymphocytes ( %) (Auto) 7L, Monocytes (%) (Auto) 7, Eosinophils (%) (Auto) 0, Basophils (%) ( Auto) 0, Neutrophils # (Auto) 13.3H, Lymphocytes # (Auto) 1.2, Monocytes # (Auto ) 1.1H, Eosinophils # (Auto) 0.0, Basophils # (Auto) 0.0, Neutrophils % (Manual ) 91, Lymphocytes % (Manual) 7, Monocytes % (Manual) 2, Eosinophils % (Manual) 0 , Basophils % (Manual) 0, Band Neutrophils 0, Toxic Granulation 1+, Sodium Level 137, Potassium Level 5.0, Chloride Level 109H, Carbon Dioxide Level 18L, Anion Gap 10, Blood Urea Nitrogen 35H, Creatinine 2.64#H, Estimat Glomerular Filtration Rate 24, BUN/Creatinine Ratio 13, Glucose Level 147H, Calcium Level 8.6, Phosphorus Level 3.5, Magnesium Level 2.0 11/29/17 04:30: 11/29/17 09:05: Hemoglobin 9.9L, Hematocrit 29L 11/29/17 11:58: Glucometer 300H 11/29/17 13:00: Hemoglobin 9.7L, Hematocrit 29L A/P: Assessment/Dx: Past CVA, Shortness of breath, PAF, Severe 3 vessel CAD, Mild to moderate , Second degree AV block. Plan: Severe CAD with severe stenosis of the mid LAD and involves the ostium of the large D1, severe stenosis if the OM which after the stenosis divides up into two large branches, Severe pRCA stenosis. He will benefit more from surgical revascularization with likely five bypass grafts. Referred to [facility] - Dr Glover accepting surgeon at . PAF - therefore, I have requested JARET closure and surgical PVI as well. Remote CVA - stroke was in 2012. Residual abnormalities present. Mild/Moderate present. mean gradient 17mmhg. Monitor clinically. Transient symptomatic Second degree AV block with hypotension - patient has ILR. if post surgery , patient develops further AV block, may require PPM in the future. Thank you for your consultation. Please call me if you have any questions. Alexis Santana MD, FACP, FACC, FSCAI, FHRS, CCDS Interventional Cardiology Cardiac Electrophysiology Vascular Medicine and Endovascular Interventions Geensis SANTANA MD Nov 29, 2017 9:53 am
[2017-11-29] MEDS ORDERED: inSUlin ASPART (NovoLOG) 1 UNIT/0.01 ML (CHARGE PER UNIT) SC SCH (12:00)
[2017-11-29 13:03] LABS: HEMOGLOBIN 9.7 G/DL (13.3-17.7)
[2017-11-29] MEDS ORDERED: DICLOFENAC 1% GEL 100 GM (VOLTAREN) TUBE TOP PRN (13:45)
[2017-11-29] MEDS ORDERED: ACETAMINOPHEN 325 MG TABLET PO PRN (13:45)
[2017-11-29] MEDS ORDERED: LIDOCAINE (LIDODERM) 5% PATCH TOP PRN (13:45)
[2017-11-30 15:26] LABS: OCCULT BLOOD,GASTRIC FLUID POSITIVE (NEGATIVE)
--- NOTE | 2017-12-02 14:14 | Physician Query Clarification ---
PQ-Further Specificity Admission/Discharge Admission Date: Nov 29, 2017 at 09:43 Discharge Date: Nov 29, 2017 at 13:40 The medical record reflects the following clinical scenario: History/Risk Factors: 11/29/17 BUN:35 CREAT:2.64 Clinical Findings: DECREASE URINE OUTPUT Treatment: NS 1L BOLUS - INCREASE MAINTENANCE FLUID TO 200mL/HR Question: Can you further specify RENAL INJURY per the clinical indicators above? Please document below. 1. ACUTE RENAL FAILURE 2. RENAL INJURY 3. Other, with explanation of the clinical findings. 4. Clinically undetermined, no explanation for the clinical findings. PHYSICIAN RESPONSE Can you specify per above: Other, explanation/clinical finding (pt had heart catheterization with low blood pressure causing pt to have acute renal injury due to shock with elevated creatinine.) In responding to this query, please exercise your independent professional judgment. The purpose of this communication is to more accurately reflect the complexity of your patients condition. The fact that a question is asked does not imply that any particular answer is desired or expected. Thank you for your timely response to this clarification. Requestors name: Maryanne Ramirez THIS PHYSICIAN QUERY FORM IS A PERMANENT PART OF THE MEDICAL RECORD KRIS BENEDICT Dec 02, 2017 14:14 JACQUELYN REAL MD Dec 03, 2017 15:45
== END 2017-11-29 13:40 | disposition short-term general hospital (02) | DRG 287 ==
LOC: CATH 08:39 → ICU 11:52 → CATH 11-29 09:43
PROVIDERS: ADMIT Internal Medicine Interventional Cardiology; ATTEND Internal Medicine Interventional Cardiology
PROC: 4A023N7 Measurement of Cardiac Sampling and Pressure, Left Heart, Percutaneous Approach (ICD-10-PCS; principal; 2017-11-28)
PROC: B2111ZZ Fluoroscopy of Multiple Coronary Arteries using Low Osmolar Contrast (ICD-10-PCS; 2017-11-28)
DX: I25.10 Atherosclerotic heart disease of native coronary artery without angina pectoris (principal); I48.0 Paroxysmal atrial fibrillation; N17.9 Acute kidney failure, unspecified; K92.0 Hematemesis; D64.9 Anemia, unspecified; I35.0 Nonrheumatic aortic (valve) stenosis; I44.1 Atrioventricular block, second degree; I10 Essential (primary) hypertension; E78.5 Hyperlipidemia, unspecified; N40.0 Benign prostatic hyperplasia without lower urinary tract symptoms; I69.328 Other speech and language deficits following cerebral infarction; I69.398 Other sequelae of cerebral infarction; R53.81 Other malaise; Z85.46 Personal history of malignant neoplasm of prostate; Z87.891 Personal history of nicotine dependence; Z79.82 Long term (current) use of aspirin
CPT/HCPCS: 36140; 36415; 71045; 80048; 80053; 80061; 82271; 82962; 83735; 84100; 85007; 85014; 85018; 85027; 85347; 85610; 85730; 87081; 93005; 93458

== ENCOUNTER 2017-12-01 22:26 | Inpatient (IN) | payer MEDICARE, BC ==
[~2017-12-01] VITALS: Ht 172.7 cm; Wt 96.7 kg
[~2017-12-01 22:26] MED LIST: APIX5TAB PO; ASPI-586 PO; CHOL500044 PO; CLOP75TA28 PO; LOSA50TA7 PO; MULT-517 PO; ROSU20TA31 PO; SAW450CA7 PO
[2017-12-01] MEDS ORDERED: NS IV 1000 ML 1,000 ML IV SCH (22:32)
--- NOTE | 2017-12-01 22:44 | ED Respiratory ---
General Stated Complaint: SOA Source: patient, EMS Exam Limitations: clinical condition History of Present Illness Date Seen by Provider: Dec 01, 2017 Time Seen by Provider: 22:27 Initial Comments The patient presents to ER by EMS with chief complaint is coming from home some shortness of breath. He does have breathing treatments but does not use any recently. His oxygen level was in the 80s according to EMS. Good blood sugar. They put him on a nonrebreather and gave him an albuterol treatment after which she said he no longer needed the oxygen was doing good about mid 90s oxygen sat on room air when they arrived. He recently discovered of [facility] for a bad heart in which they're wanting to do some stents or CABG and said that he was not healthy enough to undergo the surgery and so they sent him home. He's been coughing. Does not know he's had any fever. Denies chills. Is a stroke residual dysarthria. Allergies and Home Medications Allergies Coded Allergies: No Known Drug Allergies (Unverified , 08/05/09) Home Medications Apixaban 5 Mg Tablet, 5 MG PO BID TAKE 2 TABLETS BID X 7 DAYS, THEN 1 TABLET BID Prescribed by: Genesis LANCASTER on 11/28/17 1138 Aspirin 81 Mg Tablet.dr, 81 MG PO DAILY, (Reported) Cholecalciferol (Vitamin D3) 5,000 Unit Tablet, 5,000 UNIT PO DAILY, (Reported) Clopidogrel Bisulfate 75 Mg Tablet, 75 MG PO DAILY, (Reported) Losartan Potassium 50 Mg Tablet, 50 MG PO DAILY, (Reported) Multivitamin 1 Each Tablet, 1 EACH PO DAILY, (Reported) Rosuvastatin Calcium 20 Mg Tablet, 20 MG PO HS, (Reported) Saw [place] Fruit 450 Mg Capsule, 900 MG PO BID, (Reported) Patient Home Medication List Home Medication List Reviewed: Yes Review of Systems Review of Systems Constitutional: No chills, No diaphoresis EENTM: No hearing loss, No ear pain, No nose congestion Respiratory: No cough, No dyspnea on exertion; short of breath, wheezing Cardiovascular: No chest pain, No edema, No palpitations Gastrointestinal: No abdominal pain, No constipation, No nausea Genitourinary: No discharge, No dysuria Musculoskeletal: No back pain, No joint pain Skin: No pruritus, No rash Past Bujmyag-Rrcjic-Nyvnpo Hx Patient Social History Alcohol Use: Denies Use Recreational Drug Use: No Smoking Status: Former Smoker Former Smoker, Quit: Nov 28, 2009 2nd Hand Smoke Exposure: No Recent Hopitalizations: No Immunizations Up To Date Tetanus Booster (TDap): Unknown Seasonal Allergies Seasonal Allergies: No Past Medical History Respiratory: No Currently Using CPAP: No Currently Using BIPAP: No Cardiac: No Atrial Fibrillation, High Cholesterol, Hypertension Neurological: Yes Stroke Reproductive Disorders: No Sexually Transmitted Disease: No HIV/AIDS: No Genitourinary: Yes (PSA OF 33) Benign Prostatic Hyperpl Gastrointestinal: No Musculoskeletal: Yes Arthritis Endocrine: No HEENT: No Loss of Vision: Denies Hearing Impairment: Denies Cancer: Yes Prostate Did You Recieve Any Treatments: No Psychosocial: No Integumentary: No Blood Disorders: No Adverse Reaction/Blood Tranf: No Family Medical History Hypertension Physical Exam Vital Signs - First Documented Capillary Refill : Height: 5'6.00" Weight: 180lbs. 0.0oz. 81.394183yd; 29.1 BMI Method: General Appearance: WD/WN, no apparent distress Eyes: Bilateral Eye Normal Inspection, Bilateral Eye PERRL, Bilateral Eye EOMI HEENT: PERRL/EOMI, normal ENT inspection, pharynx normal Neck: non-tender, normal inspection Respiratory: chest non-tender, no accessory muscle use, respiratory distress ( Mild increased work of breathing), decreased breath sounds, wheezing (light), expiration Cardiovascular: normal peripheral pulses, regular rate, rhythm, tachycardia, other (Slight edema) Gastrointestinal: normal bowel sounds, non tender, soft Genital/Rectal: No tenderness; other (Ecchymoses all over scrotum and penis) Extremities: non-tender, normal inspection, normal capillary refill Neurologic/Psychiatric: alert, normal mood/affect, oriented x 3, other ( Tremulousness, dysarthria difficult to understand.) Skin: warm/dry, ecchymosis (Left upper arm) Focused Exam Sepsis Stage: Severe Sepsis Possible Source: Pulmonary Lactate Level 12/01/17 22:35: Lactic Acid Level 5.41*H Time of Focused Exam: 00:01 Respiratory: Chest Non Tender, No Accessory Muscle Use, No Respiratory Distress , Decreased Breath Sounds Cardiovascular: Regular Rate, Rhythm, Normal Peripheral Pulses, Tachycardia ( 124) Capillary Refill: Less Than 3 Seconds Peripheral Pulses: 2+ Dorsalis Pedis (R), 2+ Left Dors-Pedis (L) Skin: normal color, warm/dry Lactic Acid Level Laboratory Tests Test 12/01/17 22:35 Lactic Acid Level 5.41 MMOL/L (0.50-2.00) *H Within 3hrs of presentation: Admin fluids, Admin 30ml/kg IBW due to BMI>30, Admin ABX, Blood cultures prior to ABX's, Focus exam, Lactate level Progress/Results/Core Measures Suspected Sepsis SIRS Temperature: Pulse: Respiratory Rate: Laboratory Tests 12/01/17 22:35: White Blood Count 15.2H Blood Pressure / Mean: 12/01/17 22:35: Lactic Acid Level 5.41*H Laboratory Tests 12/01/17 22:35: Creatinine 1.44H, INR Comment 1.1, Platelet Count 76L, Total Bilirubin 1.0 Results/Orders Lab Results Laboratory Tests Test 12/01/17 22:35 12/01/17 23:03 12/01/17 23:40 Range/Units White Blood Count 15.2 H 4.3-11.0 10^3/uL Red Blood Count 2.81 L 4.35-5.85 10^6/uL Hemoglobin 9.0 L 13.3-17.7 G/DL Hematocrit 26 L 40-54 % Mean Corpuscular Volume 94 80-99 FL Mean Corpuscular Hemoglobin 32 25-34 PG Mean Corpuscular Hemoglobin Concent 34 32-36 G/DL Red Cell Distribution Width 13.7 10.0-14.5 % Platelet Count 76 L 130-400 10^3/uL Mean Platelet Volume 11.0 H 7.4-10.4 FL Neutrophils (%) (Auto) 82 H 42-75 % Lymphocytes (%) (Auto) 7 L 12-44 % Monocytes (%) (Auto) 11 0-12 % Eosinophils (%) (Auto) 0 0-10 % Basophils (%) (Auto) 0 0-10 % Neutrophils # (Auto) 12.4 H 1.8-7.8 X 10^3 Lymphocytes # (Auto) 1.0 1.0-4.0 X 10^3 Monocytes # (Auto) 1.7 H 0.0-1.0 X 10^3 Eosinophils # (Auto) 0.1 0.0-0.3 10^3/uL Basophils # (Auto) 0.0 0.0-0.1 10^3/uL Neutrophils % (Manual) 78 % Lymphocytes % (Manual) 6 % Monocytes % (Manual) 10 % Eosinophils % (Manual) 0 % Basophils % (Manual) 0 % Band Neutrophils 6 % Polychromasia SLIGHT Prothrombin Time 13.8 12.2-14.7 SEC INR Comment 1.1 0.8-1.4 Activated Partial Thromboplast Time 21 L 24-35 SEC Sodium Level 140 135-145 MMOL/L Potassium Level 3.7 3.6-5.0 MMOL/L Chloride Level 110 H 98-107 MMOL/L Carbon Dioxide Level 15 L 21-32 MMOL/L Anion Gap 15 H 5-14 MMOL/L Blood Urea Nitrogen 21 H 7-18 MG/DL Creatinine 1.44 H 0.60-1.30 MG/DL Estimat Glomerular Filtration Rate 49 BUN/Creatinine Ratio 15 Glucose Level 128 H 70-105 MG/DL Lactic Acid Level 5.41 *H 0.50-2.00 MMOL/L Calcium Level 8.8 8.5-10.1 MG/DL Corrected Calcium 9.2 8.5-10.1 MG/DL Total Bilirubin 1.0 0.1-1.0 MG/DL Aspartate Amino Transf (AST/SGOT) 70 H 5-34 U/L Alanine Aminotransferase (ALT/SGPT) 43 0-55 U/L Alkaline Phosphatase 67 40-136 U/L Troponin I 4.26 *H <0.30 NG/ML C-Reactive Protein High Sensitivity 5.11 H 0.00-0.50 MG/DL Total Protein 5.8 L 6.4-8.2 GM/DL Albumin 3.5 3.2-4.5 GM/DL B-Type Natriuretic Peptide 301.3 H <100.0 PG/ML Urine Color YELLOW Urine Clarity CLEAR Urine pH 5 5-9 Urine Specific [place] 1.025 H 1.016-1.022 Urine Protein 3+ H NEGATIVE Urine Glucose (UA) NEGATIVE NEGATIVE Urine Ketones 1+ H NEGATIVE Urine Nitrite NEGATIVE NEGATIVE Urine Bilirubin NEGATIVE NEGATIVE Urine Urobilinogen NORMAL NORMAL MG/DL Urine Leukocyte Esterase 1+ H NEGATIVE Urine RBC (Auto) 5+ H NEGATIVE Urine RBC 25-50 H /HPF Urine WBC 5-10 H /HPF Urine Squamous Epithelial Cells 2-5 /HPF Urine Crystals PRESENT H /LPF Urine Amorphous Sediment FEW EVON URATES H /LPF Urine Bacteria FEW H /HPF Urine Casts NONE /LPF Urine Mucus NEGATIVE /LPF Urine Culture Indicated NO My Orders Orders - ORALIA LUCAS Cbc With Automated Diff (12/01/17 22:32) Comprehensive Metabolic Panel (12/01/17 22:32) Troponin I (12/01/17 22:32) Albuterol/Ipra Inhalation Soln (Duoneb I (12/01/17 22:45) Chest 1 View, Ap/Pa Only (12/01/17 22:32) Saline Lock/Iv-Start (12/01/17 22:32) Ns Iv 1000 Ml (Sodium Chloride 0.9%) (12/01/17 22:32) Svn Small Volume Nebulizer (12/01/17 22:32) Blood Culture (12/01/17 22:34) Sputum Culture (12/01/17 22:34) Urinalysis (12/01/17 22:34) Urine Culture (12/01/17 22:34) Protime With Inr (12/01/17 22:34) Partial Thromboplastin Time (12/01/17 22:34) Saline Lock/Iv-Start (12/01/17 22:34) Vital Signs Adult Sepsis Patie Q15M (12/01/17 22:34) O2 (12/01/17 22:34) Remove Rings In Anticipation O (12/01/17 22:34) Lactic Acid Analyzer (12/01/17 22:34) Cefepime Injection (Maxipime Injection) (12/01/17 22:45) Manual Differential (12/01/17 22:35) BNP (12/01/17 22:50) Hs C Reactive Protein (12/01/17 22:50) Saline Lock/Iv-Start (12/01/17 23:20) Ns Iv 500 Ml (Sodium Chloride 0.9%) (12/01/17 23:20) Acetaminophen Tablet (Tylenol Tablet) (12/01/17 23:45) Enoxaparin Injection (Lovenox Injection) (12/02/17 00:15) Medications Given in ED Current Medications Medications Dose Ordered Sig/[place]ita Route Start Time Stop Time Status Last Admin Dose Admin Acetaminophen 1,000 mg ONCE ONCE PO 12/01/17 23:45 12/01/17 23:46 DC 12/01/17 23:55 1,000 MG Albuterol/ Ipratropium 3 ml ONCE ONCE INH 12/01/17 22:45 12/01/17 22:46 DC 12/01/17 22:52 3 ML Cefepime HCl 1000 mg/Sodium Chloride 50 ml @ 100 mls/hr ONCE ONCE IV 12/01/17 22:45 12/01/17 23:14 DC 12/01/17 22:40 100 MLS/HR Sodium Chloride 500 ml @ 0 mls/hr Q0M ONCE IV 12/01/17 23:20 12/01/17 23:21 DC 12/02/17 00:00 0 MLS/HR Vital Signs/I&O 12/01/17 12/01/17 12/01/17 22:26 22:26 22:52 Temp 100.7 Pulse 133 Resp 18 B/P (MAP) 142/58 (86) Pulse Ox 92 92 95 O2 Delivery Nasal Cannula Nasal Cannula Nasal Cannula O2 Flow Rate 2.00 4.00 4.00 Capillary Refill : Progress Note #1: Time: 22:42 Progress Note Sepsis workup given his increased rate of breathing as well as tachycardia and fever 100.7 and we'll give him 2 liter fluids to start. We'll give him Tylenol get a chest x-ray start cefepime since he's recently been in the hospital with the assumption that this is respiratory. We'll also obtain EKG and troponins. EKG shows some mild lateral depression in V4, 5 and 6 leads. Previous CVA, severe three-vessel coronary artery disease with mild to moderate aortic stenosis and history of secondary AV block. Paroxysmal atrial fibrillation on Eliquis. August [address] Cook showing EF 70-75% with normal systolic function and rate 1 diastolic dysfunction. Progress Note #2: Time: 23:32 Progress Note Patient does not able to give a good history of why there is bruising on his scrotum and arms. He denies it is painful or that there is discomfort or discharge. There is not a lot of swelling suggestive of hematoma. His hemoglobin is stable compared to last. Elevated troponin and lactate are new and may be related to his severe coronary artery disease. We'll continue stabilizing him and then contact cardiology. We've increased his fluids to 2500 cc bolus which would be 30 mL/kg consistent with his severe septic appearance. Source of infection could be pulmonary since he is acutely short of breath. We have therefore chosen cefepime given his recent hospitalization for cardiac problems. Other possibilities that this is all cardiogenic. ECG Initial ECG Impression Date: Dec 01, 2017 Initial ECG Impression Time: 22:25 Initial ECG Rate: 132 Initial ECG Rhythm: S.Tach Initial ECG Intervals: Normal Initial ECG Impression: Normal, Nonspecific Changes Initial ECG Comparisson: Changed Comment In the lateral leads V4, V5 and V6 there is some one block depression noted. No ST elevation MA. This is new from the EKG collected 2 days ago. Diagnostic Imaging Diagonstic Imaging: Xray Plain Films/CT/US/NM/MRI: chest (1v) Comments Poor inspiratory effort. No acute cardiopulmonary processes noted today versus 2 days ago. Reviewed: Reviewed by Me Consults Consults : Consulting Physician: Genesis LANCASTER MD Departure Communication (Admissions) Time/Spoke to Admitting Phy: 23:47 Discussed the case lab imaging findings with Dr. Tiwari and she says ICU care, eICU, vancomycin, cefepime. Time/Spoke to Consulting Phy: 23:45 Discussed case lab imaging findings with Dr. Lancaster and he says the patient has a good EF and he also spoke with vascular surgery and they told him that he is not a candidate for the bypass so we will stabilize him from a sepsis standpoint and he will come and catheter the patient later. He is willing to follow the patient. He would like to continue the Plavix and convert the patient from Eliquis to Lovenox. Impression Primary Impression: NSTEMI (non-ST elevated myocardial infarction) Additional Impressions: Severe sepsis Pneumonia Qualified Codes: J18.9 - Pneumonia, unspecified organism UTI (urinary tract infection) Qualified Codes: N30.01 - Acute cystitis with hematuria Disposition: ADMITTED INPATIENT Condition: Critical Admissions Decision to Admit Reason: Admit from ER (General) Decision to Admit/Date: Dec 02, 2017 Time/Decision to Admit Time: 00:00 Departure-Patient Inst. Referrals: JACQUELYN REAL MD (PCP/Family) Primary Care Physician Copy Copies To 1: JACQUELYN REAL MD, TITUS J Dec 01, 2017 22:44
[2017-12-01] MEDS ORDERED: CEFEPIME INJECTION 1,000 MG in NS (IVPB) 50 ML IV ONE (22:45)
[2017-12-01] MEDS ORDERED: RT-ALBUTEROL/IPRATROPIUM 3 ML (DUONEB) VIAL INH ONE (22:45)
[2017-12-01 22:48] LABS: BASOPHILS % (AUTO) 0 % (0-10); EOSINOPHILS # (AUTO) 0.1 10^3/uL (0.0-0.3); EOSINOPHILS % (AUTO) 0 % (0-10); HEMATOCRIT 26 % (40-54); LYMPHOCYTES % (AUTO) 7 % (12-44); MEAN CORPUSCULAR HEMOGLOBIN 32 PG (25-34); MEAN CORPUSCULAR HGB CONC 34 G/DL (32-36); MEAN CORPUSCULAR VOLUME 94 FL (80-99); MONOCYTES # (AUTO) 1.7 X 10^3 (0.0-1.0); MONOCYTES % (AUTO) 11 % (0-12); NEUTROPHILS # (AUTO) 12.4 X 10^3 (1.8-7.8); NEUTROPHILS % (AUTO) 82 % (42-75); PLATELET COUNT 76 10^3/uL (130-400); RED BLOOD COUNT 2.81 10^6/uL (4.35-5.85); RED CELL DISTRIBUTION WIDTH 13.7 % (10.0-14.5); WHITE BLOOD COUNT 15.2 10^3/uL (4.3-11.0)
[2017-12-01 22:57] LABS: INR 1.1 (0.8-1.4); PROTHROMBIN TIME PATIENT 13.8 SEC (12.2-14.7)
[2017-12-01 23:00] LABS: BAND NEUTROPHILS 6 %; BASOPHILS % (MANUAL) 0 %; EOSINOPHILS % (MANUAL) 0 %; LYMPHOCYTES % (MANUAL) 6 %; MONOCYTES % (MANUAL) 10 %; NEUTROPHILS % (MANUAL) 78 %; POLYCHROMASIA SLIGHT
[2017-12-01 23:06] LABS: ALBUMIN 3.5 GM/DL (3.2-4.5); CALCIUM 8.8 MG/DL (8.5-10.1); CREATININE SERUM 1.44 MG/DL (0.60-1.30); POTASSIUM 3.7 MMOL/L (3.6-5.0); TOTAL PROTEIN 5.8 GM/DL (6.4-8.2)
[2017-12-01] MEDS ORDERED: NS IV 500 ML 500 ML IV ONE (23:20)
[2017-12-01 23:45] VITALS: BP 140/73
[2017-12-01] MEDS ORDERED: ACETAMINOPHEN 500 MG TAB (TYLENOL) PO ONE (23:45)
[2017-12-01 23:46] LABS: BILIRUBIN,URINE NEGATIVE (NEGATIVE); CLARITY,URINE CLEAR; COLOR,URINE YELLOW; GLUCOSE, URINE (UA) NEGATIVE (NEGATIVE); KETONES,URINE 1+ (NEGATIVE); LEUKOCYTE ESTERASE ,URINE 1+ (NEGATIVE); NITRITE,URINE NEGATIVE (NEGATIVE); PH,URINE 5 (5-9); PROTEIN,URINE 3+ (NEGATIVE); UROBILINOGEN,URINE NORMAL (NORMAL)
[2017-12-01 23:55] LABS: BACTERIA,URINE FEW /HPF; RBC,URINE 25-50 /HPF
[2017-12-01 23:56] LABS: AMORPHOUS SEDIMENT,UR FEW AMOR URATES /LPF
[2017-12-02] VITALS (33 sets, daily range): BP systolic 107–163; BP diastolic 54–114
[2017-12-02] MEDS ORDERED: ENOXAPARIN 80 MG/0.8 ML (LOVENOX) SYR SC ONE (00:15)
[2017-12-02] MEDS ORDERED: ONDANSETRON 4 MG/2 ML (SDV) Z0FRAN IV PRN (01:45)
[2017-12-02] MEDS ORDERED: VANCOMYCIN 1 GM/NS 250 ML IVPB IV ONE ×2 (01:45)
[2017-12-02] MEDS: 1/2 NS W/KCL 20 MEQ/L 1,000 ML IV SCH ×3 (01:58→22:44)
[2017-12-02] MEDS: VASOPRESSIN INJECTION 20 UNIT in NS (IVPB) 100 ML IV SCH ×3 (02:22→18:06)
[2017-12-02] MEDS: NS IV 1000 ML 1,000 ML IV SCH ×6 (02:22→22:44)
[2017-12-02] MEDS ORDERED: RT-ALBUTEROL/IPRATROPIUM 3 ML (DUONEB) VIAL INH PRN (02:30)
[2017-12-02 04:54] LABS: BASOPHILS % (AUTO) 0 % (0-10); EOSINOPHILS % (AUTO) 0 % (0-10); HEMATOCRIT 23 % (40-54); HEMOGLOBIN 7.6 G/DL (13.3-17.7); LYMPHOCYTES # (AUTO) 1.1 X 10^3 (1.0-4.0); LYMPHOCYTES % (AUTO) 11 % (12-44); MEAN CORPUSCULAR HEMOGLOBIN 31 PG (25-34); MEAN CORPUSCULAR HGB CONC 34 G/DL (32-36); MEAN CORPUSCULAR VOLUME 93 FL (80-99); MEAN PLATELET VOLUME 9.9 FL (7.4-10.4); MONOCYTES # (AUTO) 1.1 X 10^3 (0.0-1.0); MONOCYTES % (AUTO) 11 % (0-12); NEUTROPHILS # (AUTO) 8.3 X 10^3 (1.8-7.8); NEUTROPHILS % (AUTO) 78 % (42-75); PLATELET COUNT 193 10^3/uL (130-400); RED BLOOD COUNT 2.43 10^6/uL (4.35-5.85); RED CELL DISTRIBUTION WIDTH 13.6 % (10.0-14.5); WHITE BLOOD COUNT 10.6 10^3/uL (4.3-11.0)
[2017-12-02 05:12] LABS: ALANINE AMINOTRANSFERASE 35 U/L (0-55); ALBUMIN 3.2 GM/DL (3.2-4.5); ALKALINE PHOSPHATASE 57 U/L (40-136); BILIRUBIN,TOTAL 0.9 MG/DL (0.1-1.0); BUN/CREATININE RATIO 15; CARBON DIOXIDE 18 MMOL/L (21-32); CHLORIDE 114 MMOL/L (98-107); CREATININE SERUM 1.18 MG/DL (0.60-1.30); GFR ESTIMATED > 60; GLUCOSE 104 MG/DL (70-105); MAGNESIUM 2.2 MG/DL (1.8-2.4); PHOSPHORUS 2.2 MG/DL (2.3-4.7); POTASSIUM 3.6 MMOL/L (3.6-5.0); SODIUM 140 MMOL/L (135-145)
[2017-12-02] MEDS: RT-ALBUTEROL/IPRATROPIUM 3 ML (DUONEB) VIAL INH SCH ×5 (05:19→20:56)
[2017-12-02] MEDS: CATHETER FLUSH 10 ML SYR IV SCH ×3 (05:24→22:42)
[2017-12-02] MEDS ORDERED: methylPREDNISolone 40 MG/ML (Solu-MEDROL) VIAL ONE (05:31)
[2017-12-02] MEDS: KCL 20 MEQ TAB (K-DUR) PO SCH (05:32)
[2017-12-02] MEDS: POTASSIUM CL 10MEQ/50ML IVPB 50 ML IV SCH (05:32)
[2017-12-02] MEDS: MAGNESIUM 1 GM/100 ML IVPB 100 ML IV SCH (05:32)
--- NOTE | 2017-12-02 06:05 | Pulmonary Consultation ---
History of Present Illness History of Present Illness Date of Consultation 12/02/17 05:59 Time Seen by Provider: 05:59 Date of Admission History of Present Illness 67yo with hx of severe COPD, CAD, recent hospitalization. Presented to ED via EMS secondary to progressive SOB and hypoxia. He was recently transferred to [facility] secondary to severe CAD however was not a candidate for CABG. PT is currently on BiPAP secondary to respiratory distress. He is a DNR. Allergies and Home Medications Allergies Coded Allergies: No Known Drug Allergies (Unverified , 08/05/09) Home Medications Aspirin 81 Mg Tablet.dr, 81 MG PO DAILY, (Reported) Cholecalciferol (Vitamin D3) 5,000 Unit Tablet, 5,000 UNIT PO DAILY, (Reported) Clopidogrel Bisulfate 75 Mg Tablet, 75 MG PO DAILY, (Reported) Losartan Potassium 50 Mg Tablet, 50 MG PO DAILY, (Reported) Multivitamin 1 Each Tablet, 1 TAB PO DAILY, (Reported) Rosuvastatin Calcium 20 Mg Tablet, 20 MG PO HS, (Reported) Saw [place] Fruit 450 Mg Capsule, 900 MG PO BID, (Reported) Past Oduaajf-Aqzgnm-Ksxdxs Hx Patient Social History Alcohol Use: Denies Use Recreational Drug Use: No Smoking Status: Former Smoker Former Smoker, Quit: Nov 28, 2009 2nd Hand Smoke Exposure: No Recent Foreign Travel: No Contact w/Someone Who Travel: No Recent Infectious Disease Expo: No Recent Hopitalizations: No Immunizations Up To Date Tetanus Booster (TDap): Unknown Date of Pneumonia Vaccine: Apr 18, 2016 Seasonal Allergies Seasonal Allergies: No Past Medical History Surgeries: Yes (BILAT SPERMATOCELECTOMY/LAP LEFT INGUINAL HERNIA) Respiratory: No Currently Using CPAP: No Currently Using BIPAP: No Cardiac: Yes Atrial Fibrillation, High Cholesterol, Hypertension Neurological: Yes Stroke Reproductive Disorders: No Sexually Transmitted Disease: No HIV/AIDS: No Genitourinary: Yes (PSA OF 33) Benign Prostatic Hyperpl Gastrointestinal: No Musculoskeletal: Yes Arthritis Endocrine: No HEENT: No Loss of Vision: Denies Hearing Impairment: Denies Cancer: Yes Prostate Did You Recieve Any Treatments: No Psychosocial: No Integumentary: No Blood Disorders: No Adverse Reaction/Blood Tranf: No Family Medical History Hypertension Review of Systems Time Seen by Provider: 12:55 Sepsis Event Evaluation Height, Weight, BMI Height: 5'8.00" Weight: 187lbs. 0.0oz. 84.677410mb; 28.4 BMI Method:Stated Exam Exam Vital Signs Date Time Temp Pulse Resp B/P (MAP) Pulse Ox O2 Delivery O2 Flow Rate FiO2 12/02/17 05:22 109 23 98 40.00 12/02/17 05:05 131 27 99 NIV Bilevel 40.00 12/02/17 05:00 130 36 107/68 (81) 83 Nasal Cannula 4.00 12/02/17 04:30 112 19 143/75 (97) 98 Nasal Cannula 4.00 12/02/17 04:00 97 Nasal Cannula 4.00 12/02/17 04:00 108 29 128/114 (119) 98 Nasal Cannula 4.00 12/02/17 03:00 112 23 147/96 (113) 97 Nasal Cannula 4.00 12/02/17 02:30 112 23 126/92 (103) 96 Nasal Cannula 4.00 12/02/17 02:15 115 22 130/109 (116) 100 Nasal Cannula 4.00 12/02/17 02:00 115 27 158/79 (105) 97 Nasal Cannula 4.00 12/02/17 01:55 100.0 128 18 120/71 99 Room Air 12/02/17 01:45 116 21 155/79 (104) 97 Nasal Cannula 4.00 12/02/17 01:30 97 Nasal Cannula 4.00 12/02/17 01:30 117 25 163/82 (109) 96 Nasal Cannula 4.00 12/02/17 01:15 121 23 148/87 (107) 98 Nasal Cannula 4.00 12/02/17 01:13 124 12/02/17 01:12 98.2 124 24 158/82 (107) 94 Nasal Cannula 4.00 12/02/17 00:15 100.5 122 26 139/82 (101) 96 Nasal Cannula 4.00 12/02/17 00:00 122 30 133/101 (112) 99 Nasal Cannula 4.00 12/01/17 23:45 124 23 140/73 (95) 100 Nasal Cannula 4.00 12/01/17 22:52 95 Nasal Cannula 4.00 12/01/17 22:26 92 Nasal Cannula 4.00 12/01/17 22:26 100.7 133 18 142/58 (86) 92 Nasal Cannula 2.00 I & O 12/02/17 07:00 Intake Total 1800 ml Output Total 430 ml Balance 1370 ml Height & Weight Height: 5'8.00" Weight: 187lbs. 0.0oz. 84.667969fk; 28.4 BMI Method:Stated General Appearance: No Apparent Distress, WD/WN HEENT: PERRL/EOMI Respiratory: Chest Non Tender, No Accessory Muscle Use, No Respiratory Distress , Decreased Breath Sounds Cardiovascular: Regular Rate, Rhythm, Normal Peripheral Pulses, Tachycardia ( 124) Capillary Refill: Less Than 3 Seconds Peripheral Pulses: 2+ Dorsalis Pedis (R), 2+ Left Dors-Pedis (L) Gastrointestinal: normal bowel sounds, non tender, soft Neurologic/Psychiatric: Alert, Oriented x3 Results Lab Laboratory Tests 12/01/17 22:35 12/02/17 04:45 Assessment/Plan Assessment/Plan Acute on chronic respiratory failure -BiPAP, oxygen -ABG reviewed -SVNS Q4hrs -SOlumedrol 40 IV Q 6 -PT is No CODE however ok with intubation -ABG is pending -Check bilateral dopplers Hx of COPD Severe CAD with concurrent NSTEMI (troponin 4.85) -PT was not a candidate for CABG per -He was just discharged from day prior to this admission. -Cardiology following Severe sepsis with UTI and pneumonia -PT is a poor candidate for aggressive IVF. LA is now normal and patient is in worsening respiratory distress. -Decrease IVF to 75CC/hr -Continue Cefepime, and vanco -Await clancy cultures Anemia - (hb dropped from 9 to 7.6 within 6hrs) -H&H at 1600 -Occult stool -PT is on plavix and Eliquis MEtabolic acidosis -IVF Hx of CVA with slurred speech at baseline Prognosis is poor with his hx of sever CAD, COPD. Consult hospice for education. NEO MCCRACKEN DO Dec 02, 2017 06:05
[2017-12-02 06:16] LABS: ABG BASE EXCESS -5.5 MMOL/L (-2.5-2.5); ABG OXYGEN SATURATION 99 % (94-100); ABG PCO2 31 MMHG (35-45); ABG PH 7.39 (7.37-7.43); ABG PO2 122 MMHG (79-93); ABG TCO2 19.5 MMOL/L (21.0-31.0); ALLENS TEST YES-POS
[2017-12-02 06:17] LABS: INSPIRED O2 40% BIPAP; PATIENT TEMP 98.7; VENTILATOR NO
[2017-12-02 06:22] LABS: BASOPHILS % (AUTO) 0 % (0-10); EOSINOPHILS % (AUTO) 0 % (0-10); HEMATOCRIT 24 % (40-54); HEMOGLOBIN 8.1 G/DL (13.3-17.7); LYMPHOCYTES # (AUTO) 1.2 X 10^3 (1.0-4.0); LYMPHOCYTES % (AUTO) 11 % (12-44); MEAN CORPUSCULAR HEMOGLOBIN 31 PG (25-34); MEAN CORPUSCULAR HGB CONC 34 G/DL (32-36); MEAN CORPUSCULAR VOLUME 93 FL (80-99); MONOCYTES # (AUTO) 1.2 X 10^3 (0.0-1.0); MONOCYTES % (AUTO) 11 % (0-12); NEUTROPHILS # (AUTO) 8.5 X 10^3 (1.8-7.8); NEUTROPHILS % (AUTO) 78 % (42-75); PLATELET COUNT 224 10^3/uL (130-400); RED BLOOD COUNT 2.59 10^6/uL (4.35-5.85); RED CELL DISTRIBUTION WIDTH 13.8 % (10.0-14.5); WHITE BLOOD COUNT 10.9 10^3/uL (4.3-11.0)
--- NOTE | 2017-12-02 07:20 | Diagnostic Imaging Report ---
CLINICAL INDICATION: Patient with shortness of air. EXAM: Portable chest x-ray upright view. COMPARISONS: Chest x-ray dated 11/29/2017. FINDINGS: There is again noted low lung volumes with slight increased opacity in the left lung base which may represent atelectasis. There is no definite lung infiltrate. There is no pleural effusion or pneumothorax. Pulmonary vasculature and cardiac silhouette is within normal limits, as visualized. Suspected loop recorder seen overlying left chest region. IMPRESSION: 1: Suspected mild basilar atelectasis with low lung volumes. Chest x-ray PA and lateral views with good inspiratory effort would help better evaluate. 2: The remainder of this exam shows no significant interval change compared to the prior study of comparison. Dictated by: Dictated on workstation # [id number]
--- NOTE | 2017-12-02 08:56 | History & Physicial ---
History of Present Illness History of Present Illness Reason for visit/HPI PT IS A 67 Y/O MALE WHO IS A NEW PATIENT IN CLINIC IN THE PAST 4 MONTHS. HE WAS DISCHARGED ON SATURDAY TO [facility] AFTER HAVING A NSTEMI AND CARDIAC CATHETERIZATION HERE AT [facility], [place] WHICH SHOWED MULTIVESSEL DISEASE. HE WAS APPARENTLY EVALUATED AT , THEY DETERMINED THAT HE WAS NOT HEALTHY ENOUGH FOR BYPASS AND DISCHARGED HIM TO HOME. (WE DO NOT YET HAVE THE INFORMATION FROM IN HIS CHART). HE REPORTEDLY BECAME INCREASINGLY SHORT OF BREATH ON SATURDAY EVENING AND CALLED AN AMBULANCE WAS STARTED ON A NON REBREATHER AND BY THE TIME HE WAS AT THE EMERGENCY DEPT HE WAS ABLE TO MAINTAIN HIS OXYGEN SATURATIONS ON ROOM AIR. HE WAS FOUND TO HAVE SEPSIS - FROM PNEUMONIA AND HE WAS SENT UP TO THE ICU FOR CLOSE MONITORING. Date of Admission Dec 02, 2017 at 00:10 Date Seen by Provider: Dec 02, 2017 Time Seen by Provider: 08:45 I consulted on this patient on 12/02/17 08:45 Attending Physician JACQUELYN DORADO MD Admitting Physician Jacquelyn Dorado MD Consult Genesis SANTANA MD Allergies and Home Medications Allergies Coded Allergies: No Known Drug Allergies (Unverified , 08/05/09) Home Medications Aspirin 81 Mg Tablet.dr, 81 MG PO DAILY, (Reported) Cholecalciferol (Vitamin D3) 5,000 Unit Tablet, 5,000 UNIT PO DAILY, (Reported) Clopidogrel Bisulfate 75 Mg Tablet, 75 MG PO DAILY, (Reported) Losartan Potassium 50 Mg Tablet, 50 MG PO DAILY, (Reported) Multivitamin 1 Each Tablet, 1 TAB PO DAILY, (Reported) Rosuvastatin Calcium 20 Mg Tablet, 20 MG PO HS, (Reported) Saw [place] Fruit 450 Mg Capsule, 900 MG PO BID, (Reported) Patient Home Medication List Home Medication List Reviewed: Yes Past Bpownue-Andozl-Teueei Hx Patient Social History Marrital Status: Number of Children: 0 Living Status: LIVES WITH SPOUSE IN [facility] HAS STEP-CHILDREN Alcohol Use: Denies Use Recreational Drug Use: No Smoking Status: Former Smoker Former Smoker, Quit: Nov 28, 2009 2nd Hand Smoke Exposure: No Physical Abuse Screen: No Sexual Abuse: No Recent Foreign Travel: No Contact w/other who traveled: No Recent Hopitalizations: No Recent Infectious Disease Expo: No Immunizations Up To Date Tetanus Booster (TDap): Unknown Date of Pneumonia Vaccine: Apr 18, 2016 Seasonal Allergies Seasonal Allergies: No Surgeries Yes (BILAT SPERMATOCELECTOMY/LAP LEFT INGUINAL HERNIA) Respiratory No Currently Using CPAP: No Currently Using BIPAP: No Cardiovascular Yes Atrial Fibrillation, High Cholesterol, Hypertension Neurological Yes Stroke Reproductive System Hx Reproductive Disorders: No Sexually Transmitted Disease: No HIV/AIDS: No Genitourinary Yes (PSA OF 33) Benign Prostatic Hyperpl Gastrointestinal No Musculoskeletal Yes Arthritis Endocrine History of Endocrine Disorders: No HEENT History of HEENT Disorders: No Loss of Vision: Denies Hearing Impairment: Denies Cancer Yes Prostate Did You Recieve Any Treatments: No Psychosocial History of Psychiatric Problem: No Integumentary History of Skin or Integumenta: No Blood Transfusions History of Blood Disorders: No Adverse Reaction to a Blood Tr: No Reviewed Nursing Assessment Reviewed/Agree w Nursing PMH: Yes Family Medical History Significant Family History: Hypertension Review of Systems Constitutional: No chills; malaise, weakness EENTM: No hoarseness, No mouth pain, No throat pain, No throat swelling Respiratory: No cough; dyspnea on exertion, short of breath Cardiovascular: chest pain, Hx of Intervention, vascular heart diseas Gastrointestinal: No abdominal pain Genitourinary: no symptoms reported Musculoskeletal: No back pain, No muscle stiffness; muscle weakness Psychiatric/Neurological: Denies Anxiety, Denies Depressed; Pre-Existing Deficit, Weakness, Other All Other Systems Reviewed Negative Unless Noted: Yes Physical Exam Vital Signs Vital Signs - First Documented 12/02/17 20:00 FiO2 26 Capillary Refill : Less Than 3 Seconds Height, Weight, BMI Height: 5'8.00" Weight: 198lbs. 0.0oz. [id number]; 28.4 BMI Method:Stated General Appearance: No Apparent Distress, WD/WN Eyes: Bilateral Eye Normal Inspection, Bilateral Eye PERRL, Bilateral Eye EOMI HEENT: PERRL/EOMI, Pharynx Normal Neck: Full Range of Motion, Supple Respiratory: Chest Non Tender, Lungs Clear, Normal Breath Sounds, No Accessory Muscle Use Cardiovascular: Regular Rate, Rhythm Gastrointestinal: Normal Bowel Sounds, No Organomegaly, No Pulsatile Mass, Non Tender, Soft Rectal: Deferred Extremity: Normal Capillary Refill, Non Tender, No Calf Tenderness, No Pedal Edema Neurologic/Psychiatric: Alert, Oriented x3, No Motor/Sensory Deficits, Normal Mood/Affect Skin: Warm/Dry Lymphatic: No Adenopathy Assessment/Plan Assessment and Plan SEPSIS PNEUMONIA CORONARY ARTERY DISEASE RECENT NSTEMI HYPERTENSION ATRIAL FIBRILLATION HX OF STROKE WITH RESIDUAL ELEVATED PSA SEPSIS DUE TO PNEUMONIA - PT ON HOSPITAL ACQUIRED PNEUMONIA PROTOCOL - CONTINUE WITH CURRENT MANAGEMENT. - MONITOR SERIAL CHEST XRAYS. CORONARY ARTERY DISEASE AND RECENT NSTEMI - DUE TO MULTIVESSEL DISEASE - PT NOT A SURGICAL CANDIDATE PER [facility] - WILL CONTINUE WITH MEDICAL MANAGEMENT. HYPERTENSION - CONTINUE TO MONITOR PRESSURE - ATRIAL FIBRILLATION - RATE CONTROLLED ON CURRENT REGIMEN - ELIQUIS FOR PROPHYLAXIS HX OF STROKE WITH RESIDUAL ELEVATED PSA - INVESTIGATION PENDING Admission Diagnosis SEPSIS PNEUMONIA CORONARY ARTERY DISEASE RECENT NSTEMI HYPERTENSION ATRIAL FIBRILLATION HX OF STROKE WITH RESIDUAL ELEVATED PSA Admission Status: Inpatient Order (span 2 midnights) Reason for Inpatient Admission: ADMISSION FOR SEPSIS WITH PNEUMONIA, WITH RECENT NSTEMI - WILL REQUIRE MORE THAN TWO MIDNIGHTS FOR STABILIZATION AND TRANSITION TO ORAL MEDICATIONS. Clinical Quality Measures DVT/VTE Risk/Contraindication: Risk Factor Score Per Nursin RFS Level Per Nursing on Admit: 4+=Very High JACQUELYN DORADO MD Dec 02, 2017 08:56
[2017-12-02] MEDS ORDERED: methylPREDNISolone 40 MG/ML (Solu-MEDROL) VIAL IV SCH (09:00)
--- NOTE | 2017-12-02 09:02 | Diagnostic Imaging Report ---
INDICATION: Shortness of air. TIME OF EXAM: 3:19 a.m. Correlation is made with prior study from one day earlier. FINDINGS: The heart size is stable. Cardiac monitoring device overlies the lower left chest. Right hemidiaphragm is mildly elevated. No infiltrates are seen. There is no evidence of congestive failure. No effusion or pneumothorax is seen. IMPRESSION: No acute cardiopulmonary process is detected. Dictated by: Dictated on workstation # [id number]
--- NOTE | 2017-12-02 09:04 | Consultation-Cardiology ---
HPI-Cardiology Cardiology Consultation: Date of Consultation 12/02/17 Date of Admission Attending Physician Jessica Tiwari DO Admitting Physician Argenis Dorado MD Consulting Physician Genesis LANCASTER MD HPI: Time Seen by Provider: 09:03 Chief Complaint: Shortness of breath This is a 67-year-old gentleman who is a patient from my clinic. He has history of stroke in 2013 with residual speech difficulty as well as weakness. He complained of shortness of breath. Nuclear stress test was abnormal therefore coronary angiography was performed which showed severe three-vessel CAD. The lesion in the LAD and OM artery are bifurcating lesions. The patient was transferred to for cardiac surgery evaluation. He was deemed to be an inappropriate candidate for cardiac surgery and also I am told that the was not in favor of cardiac surgery as well. He was discharged to follow-up with me as an outpatient, however developed significant shortness of breath and presented to the ER and was found to be in sepsis, shortness of breath, pneumonia, lactic acidosis. Skin erosion at the site of implantable loop recorder was also noted. The patient also has history of paroxysmal atrial fibrillation which was found on an implantable loop recorder. He was started on oral anticoagulation. He also has mild to moderate aortic stenosis. Lastly during sheath pull, the patient developed transient second-degree AV block with hypotension. No further AV block was noted afterwards. Review of Systems-Cardiology Review of Systems Constitutional: As described under HPI; No As described under HPI, No no symptoms reported, No chills; fever; No lightheadedness Eyes: No As described under HPI, No no symptoms reported, No blindness, No blurred vision, No contact lenses, No drainage, No decreased acuity, No foreign body sensation, No pain, No vision change Ears/Nose/Throat: No As described under HPI, No no symptoms reported, No chronic hearing loss, No ear discharge, No ear pain, No nasal drainage, No ulcerations Respiratory: No no symptoms reported; As described under HPI; No As described under HPI, No cough; orthopnea, shortness of breath; No SOB with excertion Cardiovascular: No no symptoms reported; As described under HPI; No As described under HPI, No chest pain, No edema, No irregular heart rate, No lightheadedness, No palpitations Gastrointestinal: No no symptoms reported, No As described under HPI, No abdomen distended, No abdominal pain, No blood streaked bowels, No constipation , No diarrhea, No nausea, No vomiting, No stool coloration changes Genitourinary: No As described under HPI, No burning, No dysuria, No discharge , No frequency, No flank pain, No hematuria, No urgency Musculoskeletal: No no symptoms reported, No As describe under HPI, No back pain, No gout, No joint pain, No joint swelling, No muscle pain, No muscle stiffness, No neck pain, No other Skin: No no symptoms reported, No As described under HPI, No change in color, No change in hair/nails, No dryness, No lesions, No lumps, No rash, No other, No skin related problems, No ulcerations, No rash on exposed areas, No ulcerations on exposed areas Psychiatric/Neurological: No anxiety, No depression, No seizure, No focal weakness, No syncope Hematologic: No bleeding abnormalities JNI-Nhdzcb-Iagzaj Hx Patient Social History Alcohol Use: Denies Use Recreational Drug Use: No Smoking Status: Former Smoker 2nd Hand Smoke Exposure: No Recent Foreign Travel: No Recent Infectious Disease Expo: No Hospitalization with Isolation: Denies Physical Abuse Screen: No Sexual Abuse: No Immunizations Up To Date Tetanus Booster (TDap): Unknown Date of Pneumonia Vaccine: Apr 18, 2016 Past Medical History PMH As described under Assessment. Allergies and Home Medications Allergies Coded Allergies: No Known Drug Allergies (Unverified , 08/05/09) Home Medications Apixaban 5 Mg Tablet, 5 MG PO BID TAKE 2 TABLETS BID X 7 DAYS, THEN 1 TABLET BID Prescribed by: Genesis LANCASTER on 11/28/17 1138 Aspirin 81 Mg Tablet.dr, 81 MG PO DAILY, (Reported) Cholecalciferol (Vitamin D3) 5,000 Unit Tablet, 5,000 UNIT PO DAILY, (Reported) Clopidogrel Bisulfate 75 Mg Tablet, 75 MG PO DAILY, (Reported) Losartan Potassium 50 Mg Tablet, 50 MG PO DAILY, (Reported) Multivitamin 1 Each Tablet, 1 EACH PO DAILY, (Reported) Rosuvastatin Calcium 20 Mg Tablet, 20 MG PO HS, (Reported) Saw [place] Fruit 450 Mg Capsule, 900 MG PO BID, (Reported) Patient Home Medication List Home Medication List Reviewed: Yes Physical Exam-Cardiology Physical Exam Vital Signs/I&O 12/02/17 12/02/17 12/02/17 12/02/17 04:00 04:00 04:30 05:00 Pulse 108 112 130 Resp 29 19 36 B/P (MAP) 128/114 (119) 143/75 (97) 107/68 (81) Pulse Ox 98 97 98 83 O2 Delivery Nasal Cannula Nasal Cannula Nasal Cannula Nasal Cannula O2 Flow Rate 4.00 4.00 4.00 4.00 12/02/17 12/02/17 12/02/17 12/02/17 05:05 05:22 06:00 07:00 Pulse 131 109 107 98 Resp 27 23 22 21 B/P (MAP) 133/97 (109) 138/80 (99) Pulse Ox 99 98 97 99 O2 Delivery NIV Bilevel NIV Bilevel NIV Bilevel O2 Flow Rate 40.00 40.00 40.00 40.00 12/02/17 12/02/17 12/02/17 12/02/17 07:00 07:01 08:00 08:29 Pulse 100 98 99 Resp 22 24 B/P (MAP) 161/82 (108) Pulse Ox 97 96 O2 Delivery NIV Bilevel Nasal Cannula O2 Flow Rate 40.00 40.00 4.00 12/02/17 12/02/17 12/02/17 12/02/17 08:31 09:00 09:53 10:00 Temp 99.0 Pulse 105 105 Resp 20 14 B/P (MAP) 156/88 (110) 110/94 (99) Pulse Ox 96 95 98 O2 Delivery Nasal Cannula Nasal Cannula Nasal Cannula Nasal Cannula O2 Flow Rate 4.00 4.00 4.00 4.00 12/02/17 12/02/17 12/02/17 11:00 13:00 14:31 Pulse 105 106 Resp 15 B/P (MAP) 126/68 (87) Pulse Ox 99 O2 Delivery Nasal Cannula Nasal Cannula O2 Flow Rate 4.00 4.00 Capillary Refill : Less Than 3 Seconds Constitutional: appears stated age, AAO x 3; No apparent distress; well- developed, well-nourished HEENT: PERRL; No normal ENT inspection, No TMs normal, No pharynx normal, No scleral icterus (R), No scleral icterus (L), No pale conjunctivae (R), No pale conjunctivae (L), No photophobia, No TM abnormal (R), No TM abnormal (L), No pharyngeal erythema, No tonsillar exudate, No other, No discharge, No EOMI; hearing is well preserved; No hard of hearing; oral hygience is good; No ulceration, No xanthelasmas are seen Neck: No non-tender, No full range of motion, No supple, No normal inspection, No carotid bruit, No limited range of motion, No lymphadenopathy (R), No lymphadenopathy (L), No tender lateral, No tender midline, No thyromegaly, No other; carotid pulses are 2 + bilaterally; No with good upstrokes Respiratory: No accessory muscle use, No respiratory distress, No chest tender , No chest expansion is symmetric; chest is bilaterally symmetric; No lungs clear to percussion; lungs clear to auscultation; No crackles, No rhonchi, No rales, No stridor, No wheezing, No pleural rub, No other Cardiovascular: regular rate-rhythm, S1 and S2, systolic murmur, other (skin erosion at the site of implantable loop recorder.) Gastrointestinal: No tender, No soft, No round, No distended, No pulsatile mass , No organomegaly, No guarding, No rebound, No tenderness, No hernia, No mass, No audible bowel sounds, No abnormal bowel sounds, No abdominal bruits, No spleenomegaly, No other Rectal: deferred Genital/Rectal: No tenderness; other (Ecchymoses all over scrotum and penis) Extremities: No normal range of motion, No non-tender, No normal inspection, No pedal edema, No calf tenderness, No normal capillary refill, No pelvis stable , No calf tenderness, No inflammation, No pedal edema, No slow capillary refill , No swelling, No other, No abrasion, No clubbing, No cyanosis, No ecchymosis, No laceration, No no lower extremity edema bilateral, No significant edema, No tenderness, No wound Neurologic/Psychiatric: alert, normal mood/affect, oriented x 3 Skin: normal color, warm/dry; No cyanosis, No cool, No diaphoresis, No damp, No ecchymosis, No jaundice, No mottled, No pallor, No rash, No tattoos/piercings , No ulcerations, No rash on exposed areas, No ulcerations on exposed areas, No other Data Review Labs Laboratory Tests 12/01/17 22:35: White Blood Count 15.2H, Red Blood Count 2.81L, Hemoglobin 9.0L, Hematocrit 26L , Mean Corpuscular Volume 94, Mean Corpuscular Hemoglobin 32, Mean Corpuscular Hemoglobin Concent 34, Red Cell Distribution Width 13.7, Platelet Count 76L, Mean Platelet Volume 11.0H, Neutrophils (%) (Auto) 82H, Lymphocytes (%) (Auto) 7L, Monocytes (%) (Auto) 11, Eosinophils (%) (Auto) 0, Basophils (%) (Auto) 0, Neutrophils # (Auto) 12.4H, Lymphocytes # (Auto) 1.0, Monocytes # (Auto) 1.7H, Eosinophils # (Auto) 0.1, Basophils # (Auto) 0.0, Neutrophils % (Manual) 78, Lymphocytes % (Manual) 6, Monocytes % (Manual) 10, Eosinophils % (Manual) 0, Basophils % (Manual) 0, Band Neutrophils 6, Polychromasia SLIGHT, Prothrombin Time 13.8, INR Comment 1.1, Activated Partial Thromboplast Time 21L, Sodium Level 140, Potassium Level 3.7, Chloride Level 110H, Carbon Dioxide Level 15L, Anion Gap 15H, Blood Urea Nitrogen 21H, Creatinine 1.44H, Estimat Glomerular Filtration Rate 49, BUN/Creatinine Ratio 15, Glucose Level 128H, Lactic Acid Level 5.41*H, Calcium Level 8.8, Corrected Calcium 9.2, Total Bilirubin 1.0, Aspartate Amino Transf (AST/SGOT) 70H, Alanine Aminotransferase (ALT/SGPT) 43, Alkaline Phosphatase 67, Troponin I 4.26*H, C-Reactive Protein High Sensitivity 5.11H, Total Protein 5.8L, Albumin 3.5 12/01/17 23:03: B-Type Natriuretic Peptide 301.3H 12/01/17 23:40: Urine Color YELLOW, Urine Clarity CLEAR, Urine pH 5, Urine Specific [place] 1.025H, Urine Protein 3+H, Urine Glucose (UA) NEGATIVE, Urine Ketones 1+H, Urine Nitrite NEGATIVE, Urine Bilirubin NEGATIVE, Urine Urobilinogen NORMAL, Urine Leukocyte Esterase 1+H, Urine RBC (Auto) 5+H, Urine RBC 25-50H, Urine WBC 5-10H, Urine Squamous Epithelial Cells 2-5, Urine Crystals PRESENTH, Urine Amorphous Sediment FEW EVON URATESH, Urine Bacteria FEWH, Urine Casts NONE, Urine Mucus NEGATIVE, Urine Culture Indicated NO 12/02/17 00:37: Lactic Acid Level 1.28 12/02/17 04:45: White Blood Count 10.6, Red Blood Count 2.43L, Hemoglobin 7.6L, Hematocrit 23L, Mean Corpuscular Volume 93, Mean Corpuscular Hemoglobin 31, Mean Corpuscular Hemoglobin Concent 34, Red Cell Distribution Width 13.6, Platelet Count 193, Mean Platelet Volume 9.9, Neutrophils (%) (Auto) 78H, Lymphocytes (%) (Auto) 11L , Monocytes (%) (Auto) 11, Eosinophils (%) (Auto) 0, Basophils (%) (Auto) 0, Neutrophils # (Auto) 8.3H, Lymphocytes # (Auto) 1.1, Monocytes # (Auto) 1.1H, Eosinophils # (Auto) 0.0, Basophils # (Auto) 0.0, Sodium Level 140, Potassium Level 3.6, Chloride Level 114H, Carbon Dioxide Level 18L, Anion Gap 8, Blood Urea Nitrogen 18, Creatinine 1.18, Estimat Glomerular Filtration Rate > 60, BUN/ Creatinine Ratio 15, Glucose Level 104, Calcium Level 8.0L, Corrected Calcium 8.6, Phosphorus Level 2.2L, Magnesium Level 2.2, Total Bilirubin 0.9, Aspartate Amino Transf (AST/SGOT) 57H, Alanine Aminotransferase (ALT/SGPT) 35, Alkaline Phosphatase 57, Troponin I 4.85*H, Total Protein 5.0L, Albumin 3.2 12/02/17 06:01: White Blood Count 10.9, Red Blood Count 2.59L, Hemoglobin 8.1L, Hematocrit 24L, Mean Corpuscular Volume 93, Mean Corpuscular Hemoglobin 31, Mean Corpuscular Hemoglobin Concent 34, Red Cell Distribution Width 13.8, Platelet Count 224, Mean Platelet Volume 10.0, Neutrophils (%) (Auto) 78H, Lymphocytes (%) (Auto) 11L, Monocytes (%) (Auto) 11, Eosinophils (%) (Auto) 0, Basophils (%) (Auto) 0, Neutrophils # (Auto) 8.5H, Lymphocytes # (Auto) 1.2, Monocytes # (Auto) 1.2H, Eosinophils # (Auto) 0.0, Basophils # (Auto) 0.0 12/02/17 06:14: Blood Gas Puncture Site LT RAD, Blood Gas Patient Temperature 98.7, Arterial Blood pH 7.39, Arterial Blood Partial Pressure CO2 31L, Arterial Blood Partial Pressure O2 122H, Arterial Blood HCO3 19L, Arterial Blood Total CO2 19.5L, Arterial Blood Oxygen Saturation 99, Arterial Blood Base Excess -5.5L, Edison Test YES-POS, Blood Gas Ventilator Setting NO, Blood Gas Inspired Oxygen 40% BIPAP ECG Impression ECG Initial ECG Rhythm: S.Tach A/P-Cardiology Assessment/Admission Diagnosis Sepsis, Anemia, Past CVA, 2012 Shortness of breath, PAF, Severe 3 vessel CAD, Mild to moderate , Second degree AV block. Skin erosion at the site of implantable loop recorder, Acute kidney injury Plan Severe sepsis, likely source is pneumonia. Broad-spectrum antibiotics, sepsis protocol. Skin erosion at the site of implantable loop recorder: We will explant today. Severe CAD with severe stenosis of the mid LAD and involves the ostium of the large D1, severe stenosis if the OM which after the stenosis divides up into two large branches, Severe pRCA stenosis. He will benefit more from surgical revascularization with likely five bypass grafts. Was referred to [facility] but patient was found to be an inappropriate candidate for surgical revascularization. Also the was not in favor of cardiac surgery. I discussed at length with the patient and may consider high risk multivessel PCI. We may have to stage the procedures due to his previous history of acute kidney injury. Also we will have to wait for sepsis resolution. PAF -continue Eliquis and rate control. Remote CVA - stroke was in 2012. Residual abnormalities present. Mild/Moderate present. mean gradient 17mmhg. Monitor clinically. Transient symptomatic Second degree AV block with hypotension. Complicated patient with multiple medical issues. Thank you for your consultation. Please call me if you have any questions. Alexis Lancaster MD, FACP, FACC, FSCAI, FHRS, CCDS Interventional Cardiology Cardiac Electrophysiology Vascular Medicine and Endovascular Interventions Clinical Quality Measures DVT/VTE Risk/Contraindication: Risk Factor Score Per Nursin RFS Level Per Nursing on Admit: 4+=Very High Genesis LANCASTER MD Dec 02, 2017 9:04 am
[2017-12-02] MEDS: CEFEPIME 2 GM/NS 50 ML IVPB IV SCH ×4 (10:32→22:42)
[2017-12-02] MEDS: ENOXAPARIN 80 MG/0.8 ML (LOVENOX) SYR SC SCH ×2 (10:48→21:38)
[2017-12-02] MEDS: PANTOPRAZOLE 40 MG (PROTONIX) VIAL IV SCH (10:48)
[2017-12-02] MEDS: CLOPIDOGREL 75 MG (PLAVIX) TABLET PO SCH (10:48)
--- NOTE | 2017-12-02 11:20 | Diagnostic Imaging Report ---
PROCEDURE: US Venous Lower Ext Kwasi. TECHNIQUE: Multiple real-time grayscale images were obtained over the lower extremities in various projections, bilaterally. Additional duplex Doppler and color Doppler images were also obtained. INDICATION: Bilateral lower extremity swelling. There is no evidence of a right or left lower extremity DVT. Both lower extremity deep venous systems demonstrate normal compressibility and normal response to augmentation and Valsalva. No fluid collection or mass is seen. IMPRESSION: No evidence of right or left lower extremity DVT. Dictated by: Dictated on workstation # [id number]
[2017-12-02] MEDS ORDERED: LIDOCAINE 1% INJ 20 ML 20 ML VIAL ONE (12:41)
[2017-12-02] MEDS: methylPREDNISolone 40 MG/ML (Solu-MEDROL) VIAL IV SCH ×2 (12:56→18:05)
[2017-12-02] MEDS ORDERED: NEO/POLY/BAC (NEOSPORIN) OINT 15 GM TUBE TOP NR (13:00)
--- NOTE | 2017-12-02 13:30 | Procedure/Intervention Note ---
Procedure Note Preoperative Date of Service: Dec 02, 2017 Time of Procedure: 12:30 Vital Signs Date Time Temp Pulse Resp B/P (MAP) Pulse Ox O2 Delivery O2 Flow Rate FiO2 12/02/17 11:00 105 15 126/68 (87) 99 Nasal Cannula 4.00 12/02/17 08:31 99.0 Indication Loop recorder explantation due to skin erosion. Risk/Time Out Risk and benefits explained to patient or legal guardian, verbal and written consent given. Time out performed, verified correct patient, correct procedure, correct site, and consent documented. Prep/Sedation Prepartation: Chlorhexidine Procedure-General The mid chest area was prepped with chlorhexidine. The left lower sternal area was infiltrated with lidocaine 4ml. A small incision was made with a scalpel and the [employer] loop recorder was explanted. The area with be further cleaned and sterile bandage will be done. Estimated Blood Loss Bleeding: Minimal Less than 1 mL: Yes Complications None Stable. Genesis SANTANA MD Dec 02, 2017 1:30 pm
[2017-12-02] MEDS: VANCOMYCIN 1500 MG/NS 500 ML IVPB IV SCH ×2 (14:19)
[2017-12-02 16:24] LABS: BASOPHILS % (AUTO) 0 % (0-10); EOSINOPHILS % (AUTO) 0 % (0-10); HEMATOCRIT 25 % (40-54); HEMOGLOBIN 8.1 G/DL (13.3-17.7); LYMPHOCYTES # (AUTO) 0.4 X 10^3 (1.0-4.0); LYMPHOCYTES % (AUTO) 4 % (12-44); MEAN CORPUSCULAR HEMOGLOBIN 31 PG (25-34); MEAN CORPUSCULAR HGB CONC 33 G/DL (32-36); MEAN CORPUSCULAR VOLUME 94 FL (80-99); MEAN PLATELET VOLUME 10.1 FL (7.4-10.4); MONOCYTES # (AUTO) 0.3 X 10^3 (0.0-1.0); MONOCYTES % (AUTO) 3 % (0-12); NEUTROPHILS # (AUTO) 9.4 X 10^3 (1.8-7.8); NEUTROPHILS % (AUTO) 93 % (42-75); PLATELET COUNT 204 10^3/uL (130-400); RED BLOOD COUNT 2.63 10^6/uL (4.35-5.85); RED CELL DISTRIBUTION WIDTH 14.1 % (10.0-14.5); WHITE BLOOD COUNT 10.2 10^3/uL (4.3-11.0)
[2017-12-02 19:28] LABS: ABG BASE EXCESS -9.3 MMOL/L (-2.5-2.5); ABG OXYGEN SATURATION 99 % (94-100); ABG PCO2 28 MMHG (35-45); ABG PH 7.35 (7.37-7.43); ABG PO2 124 MMHG (79-93)
[2017-12-02 19:29] LABS: ALLENS TEST POSITIVE
[2017-12-02 19:30] LABS: INSPIRED O2 30% BIPAP; PATIENT TEMP 98.9; VENTILATOR NO
--- NOTE | 2017-12-02 19:51 | Diagnostic Imaging Report ---
INDICATION: Shortness of breath. COMPARISON: 12/02/2017. FINDINGS: There is poor inspiratory volume; however, the lungs show no focal consolidation. No effusion or pneumothorax and there is no failure pattern. IMPRESSION: Clear lungs with poor inspiratory volumes bilaterally. Dictated by: Dictated on workstation # [id number]
[2017-12-02] MEDS ORDERED: DEXMEDETOMIDINE INJECTION 200 MCG in NS (IVPB) 50 ML IV ONE (21:27)
[2017-12-02] MEDS ORDERED: NS (IVPB) 50 ML ONE (21:28)
[2017-12-02] MEDS: ROSUVASTATIN 20 MG (CRESTOR) TABLET PO SCH (21:34)
[2017-12-02] MEDS: DEXMEDETOMIDINE 400 MCG/NS 100 ML IV DRIP IV SCH ×2 (21:39)
[2017-12-03] VITALS (31 sets, daily range): BP systolic 84–146; BP diastolic 48–96
[2017-12-03] MEDS: methylPREDNISolone 40 MG/ML (Solu-MEDROL) VIAL IV SCH ×4 (00:55→17:03)
[2017-12-03] MEDS: RT-ALBUTEROL/IPRATROPIUM 3 ML (DUONEB) VIAL INH SCH ×6 (01:14→21:45)
[2017-12-03] MEDS: NS IV 1000 ML 1,000 ML IV SCH ×2 (02:29→05:37)
[2017-12-03] MEDS: VASOPRESSIN INJECTION 20 UNIT in NS (IVPB) 100 ML IV SCH ×3 (02:29→21:35)
[2017-12-03] MEDS: VANCOMYCIN 1500 MG/NS 500 ML IVPB IV SCH ×4 (02:34→14:06)
[2017-12-03 03:59] LABS: ABG BASE EXCESS -6.3 MMOL/L (-2.5-2.5); ABG OXYGEN SATURATION 97 % (94-100); ABG PCO2 28 MMHG (35-45); ABG PH 7.41 (7.37-7.43); ABG PO2 78 MMHG (79-93); ABG TCO2 18.5 MMOL/L (21.0-31.0)
[2017-12-03 04:01] LABS: ALLENS TEST YES-POS; INSPIRED O2 25% BIPAP; VENTILATOR NO
[2017-12-03 04:12] LABS: BASOPHILS % (AUTO) 0 % (0-10); EOSINOPHILS % (AUTO) 0 % (0-10); HEMATOCRIT 22 % (40-54); HEMOGLOBIN 7.5 G/DL (13.3-17.7); LYMPHOCYTES # (AUTO) 0.6 X 10^3 (1.0-4.0); LYMPHOCYTES % (AUTO) 6 % (12-44); MEAN CORPUSCULAR HEMOGLOBIN 32 PG (25-34); MEAN CORPUSCULAR HGB CONC 35 G/DL (32-36); MEAN CORPUSCULAR VOLUME 93 FL (80-99); MEAN PLATELET VOLUME 10.1 FL (7.4-10.4); MONOCYTES # (AUTO) 0.5 X 10^3 (0.0-1.0); MONOCYTES % (AUTO) 5 % (0-12); NEUTROPHILS # (AUTO) 8.9 X 10^3 (1.8-7.8); NEUTROPHILS % (AUTO) 89 % (42-75); PLATELET COUNT 191 10^3/uL (130-400); RED BLOOD COUNT 2.32 10^6/uL (4.35-5.85)
[2017-12-03 04:32] LABS: BUN/CREATININE RATIO 16; CARBON DIOXIDE 18 MMOL/L (21-32); CHLORIDE 114 MMOL/L (98-107); CREATININE SERUM 1.04 MG/DL (0.60-1.30); GFR ESTIMATED > 60; GLUCOSE 154 MG/DL (70-105); MAGNESIUM 2.3 MG/DL (1.8-2.4); PHOSPHORUS 1.9 MG/DL (2.3-4.7); SODIUM 139 MMOL/L (135-145)
[2017-12-03] MEDS: CATHETER FLUSH 10 ML SYR IV SCH ×3 (05:39→23:07)
[2017-12-03] MEDS: MAGNESIUM 1 GM/100 ML IVPB 100 ML IV SCH (05:39)
[2017-12-03] MEDS: KCL 20 MEQ TAB (K-DUR) PO SCH (05:39)
[2017-12-03] MEDS: POTASSIUM CL 10MEQ/50ML IVPB 50 ML IV SCH (05:39)
--- NOTE | 2017-12-03 06:43 | Pulmonary Progress Note ---
Subjective Time Seen by Provider: 06:56 Subjective/Events-last exam Pt is still on BiPAP currently. Sepsis Event Evaluation Height, Weight, BMI Height: 5'8.00" Weight: 208lbs. 3.0oz. 94.156002ud; 28.4 BMI Method:Stated Focused Exam Lactate Level 12/01/17 22:35: Lactic Acid Level 5.41*H 12/02/17 00:37: Lactic Acid Level 1.28 Time of Focused Exam: 00:01 Exam Exam Vital Signs Date Time Temp Pulse Resp B/P (MAP) Pulse Ox O2 Delivery O2 Flow Rate FiO2 12/03/17 06:00 66 15 99/59 (72) 100 NIV Bilevel 25.00 12/03/17 06:00 77 18 100 25.00 12/03/17 05:00 68 15 94/55 (68) 100 NIV Bilevel 25.00 12/03/17 04:00 100 NIV Bilevel 25 12/03/17 04:00 81 19 115/64 (81) 98 NIV Bilevel 25.00 12/03/17 03:36 72 16 99 25.00 12/03/17 03:00 75 14 103/55 (71) 100 NIV Bilevel 25.00 12/03/17 02:00 82 17 102/59 (73) 100 NIV Bilevel 25.00 12/03/17 01:14 80 15 99 25.00 12/03/17 01:00 89 12/03/17 01:00 89 17 124/74 (91) 97 NIV Bilevel 25.00 12/03/17 00:00 86 106/58 (74) 100 NIV Bilevel 25.00 12/03/17 00:00 97.0 12/03/17 00:00 100 NIV Bilevel 25 12/02/17 23:40 86 17 100 25.00 12/02/17 23:00 92 16 120/69 (86) 100 NIV Bilevel 25.00 12/02/17 22:00 103 18 140/110 (120) 99 NIV Bilevel 25.00 12/02/17 21:00 112 21 118/71 (87) 100 NIV Bilevel 25.00 12/02/17 20:56 107 27 100 30.00 12/02/17 20:26 100 18 95 NIV Bilevel 25.00 12/02/17 20:00 112 21 126/85 (99) 100 NIV Bilevel 30.00 12/02/17 20:00 100 NIV Bilevel 26 12/02/17 20:00 97.9 12/02/17 19:14 117 27 98 NIV Bilevel 30.00 12/02/17 19:14 118 35 100 30.00 12/02/17 19:00 118 18 19:00 118 26 150/87 (108) Nasal Cannula 4.00 12/02/17 17:00 110 30 127/77 (94) 97 Nasal Cannula 4.00 12/02/17 16:00 98.7 Nasal Cannula 4.00 12/02/17 16:00 Nasal Cannula 4.00 12/02/17 16:00 105 25 97 Nasal Cannula 4.00 12/02/17 15:00 123 28 124/76 (92) 99 Nasal Cannula 4.00 12/02/17 14:31 Nasal Cannula 4.00 12/02/17 14:00 114 24 123/67 (85) 99 Nasal Cannula 4.00 12/02/17 13:00 106 17 138/76 (96) 96 Nasal Cannula 4.00 12/02/17 13:00 106 12/02/17 12:00 104 17 96 Nasal Cannula 4.00 12/02/17 12:00 Nasal Cannula 4.00 12/02/17 12:00 98.6 Nasal Cannula 4.00 12/02/17 11:00 105 15 126/68 (87) 99 Nasal Cannula 4.00 12/02/17 10:00 105 14 110/94 (99) 98 Nasal Cannula 4.00 12/02/17 09:53 95 Nasal Cannula 4.00 12/02/17 09:00 105 20 156/88 (110) 96 Nasal Cannula 4.00 12/02/17 08:31 99.0 Nasal Cannula 4.00 12/02/17 08:30 Nasal Cannula 4.00 12/02/17 08:29 96 Nasal Cannula 4.00 12/02/17 08:00 99 24 161/82 (108) 97 NIV Bilevel 40.00 12/02/17 07:01 98 22 40.00 12/02/17 07:00 100 12/02/17 07:00 98 21 138/80 (99) 99 NIV Bilevel 40.00 I & O 12/03/17 07:00 Intake Total 2255 ml Output Total 1275 ml Balance 980 ml Height & Weight Height: 5'8.00" Weight: 208lbs. 3.0oz. 94.292221zl; 28.4 BMI Method:Stated General Appearance: Moderate Distress Respiratory: Chest Non Tender, No Accessory Muscle Use, No Respiratory Distress , Decreased Breath Sounds Cardiovascular: Regular Rate, Rhythm, Normal Peripheral Pulses, Tachycardia ( 124) Capillary Refill: Less Than 3 Seconds Peripheral Pulses: 2+ Dorsalis Pedis (R), 2+ Left Dors-Pedis (L) Gastrointestinal: normal bowel sounds, non tender, soft Skin: Normal Color, Warm/Dry Lymphatic: No Adenopathy Results Lab Laboratory Tests 12/01/17 22:35 12/02/17 04:45 12/02/17 06:01 12/02/17 16:20 12/03/17 04:05 Assessment/Plan Assessment/Plan Acute on chronic respiratory failure -BiPAP, oxygen -Will trial pt off bipap this AM -ABG reviewed -SVNS Q4hrs -SOlumedrol 40 IV Q 6 -PT is No CODE however ok with intubation at this time per EICU and RN Hx of COPD Severe CAD with concurrent NSTEMI (troponin 4.85) -PT was not a candidate for CABG per -He was just discharged from day prior to this admission. -Cardiology following Severe sepsis with UTI and pneumonia -Continue Cefepime, and vanco -Await clancy cultures Anemia --Stable -Occult stool -Monitor -PT is on plavix and Eliquis MEtabolic acidosis -IVF Hx of CVA with slurred speech at baseline NEO MCCRACKEN DO Dec 03, 2017 06:43
[2017-12-03] MEDS ORDERED: NS (IVPB) 50 ML ONE (07:25)
[2017-12-03] MEDS ORDERED: DEXMEDETOMIDINE INJECTION 200 MCG in NS (IVPB) 50 ML IV ONE (07:45)
[2017-12-03] MEDS: CLOPIDOGREL 75 MG (PLAVIX) TABLET PO SCH (08:02)
--- NOTE | 2017-12-03 08:11 | Diagnostic Imaging Report ---
PATIENT HISTORY: Shortness of air, dyspnea. TECHNIQUE: Single frontal view of the chest. COMPARISON: 12/02/2017. FINDINGS: Lung volumes are extremely low. The cardiomediastinal silhouette appears wide. There are prominent central interstitial opacities. There are bibasilar airspace opacities. No large pleural effusion or pneumothorax is seen. IMPRESSION: 1. Extremely low lung volumes. There are bilateral pulmonary opacities, which may be accentuated by the decreased lung volume, or may represent mild edema. Dictated by: Dictated on workstation # [id number]
--- NOTE | 2017-12-03 08:24 | Progress Note ---
Subjective Date Seen by Provider: Dec 03, 2017 Time Seen by Provider: 08:20 Subjective/Events-last exam PT IS A 67 Y/O MALE WHO IS KNOWN TO ME FROM CLINIC A NEW PATIENT STARTING IN JULY OF THIS YEAR. HE REPORTS THAT HE HAS BEEN FEELING SHORT OF BREATH AND HAS INTERMITTENT CHEST PAIN. Review of Systems General: Fatigue, Malaise HEENT: No Head Aches Pulmonary: Dyspnea; No Cough Cardiovascular: Chest Pain Gastrointestinal: No: Nausea, Abdominal Pain Neurological: Weakness Focused Exam Lactate Level 12/01/17 22:35: Lactic Acid Level 5.41*H 12/02/17 00:37: Lactic Acid Level 1.28 Time of Focused Exam: 00:01 Objective Exam Last Set of Vital Signs Vital Signs Date Time Temp Pulse Resp B/P (MAP) Pulse Ox O2 Delivery O2 Flow Rate FiO2 12/03/17 08:00 77 15 99 25.00 12/03/17 06:00 99/59 (72) NIV Bilevel 12/03/17 04:00 25 12/03/17 00:00 97.0 Capillary Refill : Less Than 3 Seconds I&O Intake and Output 12/03/17 00:00 Intake Total 4055 ml Output Total 1280 ml Balance 2775 ml Intake Oral 690 ml IV Total 3365 ml Output Urine Total 1280 ml Daily Weight Change No General: Alert, Oriented X3, Cooperative HEENT: Atraumatic, PERRLA Neck: Supple Lungs: Clear to Auscultation Heart: Regular Rate Abdomen: Normal Bowel Sounds, Soft, No Tenderness Psych/Mental Status: Mental Status NL, Mood NL Results Lab Laboratory Tests 12/02/17 16:20: White Blood Count 10.2, Red Blood Count 2.63L, Hemoglobin 8.1L, Hematocrit 25L, Mean Corpuscular Volume 94, Mean Corpuscular Hemoglobin 31, Mean Corpuscular Hemoglobin Concent 33, Red Cell Distribution Width 14.1, Platelet Count 204, Mean Platelet Volume 10.1, Neutrophils (%) (Auto) 93H, Lymphocytes (%) (Auto) 4L , Monocytes (%) (Auto) 3, Eosinophils (%) (Auto) 0, Basophils (%) (Auto) 0, Neutrophils # (Auto) 9.4H, Lymphocytes # (Auto) 0.4L, Monocytes # (Auto) 0.3, Eosinophils # (Auto) 0.0, Basophils # (Auto) 0.0 12/02/17 19:18: Blood Gas Puncture Site LEFT RADIAL, Blood Gas Patient Temperature 98.9, Arterial Blood pH 7.35L, Arterial Blood Partial Pressure CO2 28L, Arterial Blood Partial Pressure O2 124H, Arterial Blood HCO3 15*L, Arterial Blood Total CO2 16.0L, Arterial Blood Oxygen Saturation 99, Arterial Blood Base Excess -9.3L , Edison Test POSITIVE, Blood Gas Ventilator Setting NO, Blood Gas Inspired Oxygen 30% BIPAP 12/03/17 03:55: Blood Gas Puncture Site L RAD, Blood Gas Patient Temperature 97.0, Arterial Blood pH 7.41, Arterial Blood Partial Pressure CO2 28L, Arterial Blood Partial Pressure O2 78L, Arterial Blood HCO3 18L, Arterial Blood Total CO2 18.5L, Arterial Blood Oxygen Saturation 97, Arterial Blood Base Excess -6.3L, Edison Test YES-POS, Blood Gas Ventilator Setting NO, Blood Gas Inspired Oxygen 25% BIPAP 12/03/17 04:05: White Blood Count 10.0, Red Blood Count 2.32L, Hemoglobin 7.5L, Hematocrit 22L, Mean Corpuscular Volume 93, Mean Corpuscular Hemoglobin 32, Mean Corpuscular Hemoglobin Concent 35, Red Cell Distribution Width 14.0, Platelet Count 191, Mean Platelet Volume 10.1, Neutrophils (%) (Auto) 89H, Lymphocytes (%) (Auto) 6L , Monocytes (%) (Auto) 5, Eosinophils (%) (Auto) 0, Basophils (%) (Auto) 0, Neutrophils # (Auto) 8.9H, Lymphocytes # (Auto) 0.6L, Monocytes # (Auto) 0.5, Eosinophils # (Auto) 0.0, Basophils # (Auto) 0.0, Sodium Level 139, Potassium Level 4.0, Chloride Level 114H, Carbon Dioxide Level 18L, Anion Gap 7, Blood Urea Nitrogen 17, Creatinine 1.04, Estimat Glomerular Filtration Rate > 60, BUN/ Creatinine Ratio 16, Glucose Level 154H, Calcium Level 8.0L, Phosphorus Level 1.9L, Magnesium Level 2.3 Microbiology 12/01/17 Blood Culture - Preliminary, Resulted No growth 12/02/17 MRSA Screen - Final, Complete MRSA not isolated Assessment/Plan Assessment/Plan Assess & Plan/Chief Complaint SEPSIS PNEUMONIA CORONARY ARTERY DISEASE RECENT NSTEMI HYPERTENSION ATRIAL FIBRILLATION HX OF STROKE WITH RESIDUAL ELEVATED PSA SEPSIS DUE TO PNEUMONIA - PT ON HOSPITAL ACQUIRED PNEUMONIA PROTOCOL - CONTINUE WITH CURRENT MANAGEMENT. - MONITOR SERIAL CHEST XRAYS. WORSENING SYMPTOMS PT NOW ON BIPAP, WAS UNABLE TO TOLERATE BEING OFF OF BIPAP WHEN TRIALED OFF THIS MORNING. CORONARY ARTERY DISEASE AND RECENT NSTEMI - DUE TO MULTIVESSEL DISEASE - PT NOT A SURGICAL CANDIDATE PER [facility] - WILL CONTINUE WITH MEDICAL MANAGEMENT AT THIS TIME - I HAVE ASKED HIS TO COME TO THE HOSPITAL FOR A FAMILY MEETING. HYPERTENSION - CONTINUE TO MONITOR PRESSURE - ATRIAL FIBRILLATION - RATE CONTROLLED ON CURRENT REGIMEN -DR. SANTANA REMOVED MONITOR. HX OF STROKE WITH RESIDUAL ELEVATED PSA - INVESTIGATION PENDING Clinical Quality Measures Admission Status Admission Dx SEPSIS PNEUMONIA CORONARY ARTERY DISEASE RECENT NSTEMI HYPERTENSION ATRIAL FIBRILLATION HX OF STROKE WITH RESIDUAL ELEVATED PSA DVT/VTE Risk/Contraindication: Risk Factor Score Per Nursin RFS Level Per Nursing on Admit: 4+=Very High JACQUELYN REAL MD Dec 03, 2017 08:24
[2017-12-03] MEDS: DEXMEDETOMIDINE 400 MCG/NS 100 ML IV DRIP IV SCH ×2 (09:07)
[2017-12-03] MEDS: PANTOPRAZOLE 40 MG (PROTONIX) VIAL IV SCH (09:11)
[2017-12-03] MEDS: CEFEPIME 2 GM/NS 50 ML IVPB IV SCH ×4 (09:11→21:04)
[2017-12-03] MEDS: ENOXAPARIN 80 MG/0.8 ML (LOVENOX) SYR SC SCH ×2 (09:11→21:04)
--- NOTE | 2017-12-03 10:16 | Cardiology Progress Note ---
Cardiology SOAP Progress Note Subjective: Significant shortness of breath. Objective: I&O/Vital Signs 12/03/17 12/03/17 12/03/17 12/03/17 21:00 21:45 22:00 23:00 Pulse 87 86 87 95 Resp 27 28 27 24 B/P (MAP) 146/76 (99) 144/62 (89) 144/62 (89) Pulse Ox 98 96 90 94 O2 Delivery NIV Bilevel NIV Bilevel NIV Bilevel O2 Flow Rate 21.00 21.00 21.00 21.00 12/04/17 12/04/17 12/04/17 12/04/17 00:00 00:00 00:00 00:01 Temp 99.2 Pulse 90 89 Resp 25 23 B/P (MAP) 124/103 (110) Pulse Ox 91 98 O2 Delivery NIV Bilevel NIV Bilevel O2 Flow Rate 21.00 21.00 FiO2 25 12/04/17 12/04/17 12/04/17 12/04/17 01:00 01:00 02:00 02:50 Pulse 82 82 81 80 Resp 20 20 22 B/P (MAP) 138/71 (93) 120/62 (81) Pulse Ox 98 97 100 O2 Delivery NIV Bilevel NIV Bilevel O2 Flow Rate 21.00 21.00 21.00 12/04/17 12/04/17 12/04/17 12/04/17 03:00 04:00 04:00 04:00 Temp 99.0 Pulse 83 80 Resp 23 22 B/P (MAP) 95/77 (83) 117/88 (98) Pulse Ox 98 92 O2 Delivery NIV Bilevel NIV Bilevel NIV Bilevel O2 Flow Rate 21.00 21.00 FiO2 25 12/04/17 12/04/17 12/04/17 12/04/17 04:30 05:00 05:26 06:00 Pulse 87 83 89 87 Resp 25 32 39 20 B/P (MAP) 126/60 (82) 120/56 (77) Pulse Ox 94 96 90 99 O2 Delivery NIV Bilevel High Flow N/C High Flow N/C O2 Flow Rate 21.00 21.00 10.00 10.00 12/04/17 12/04/17 12/04/17 06:00 07:24 08:05 Temp 98.9 Pulse 103 O2 Delivery High Flow N/C O2 Flow Rate 10.00 12/04/17 00:00 Intake Total 1515 ml Output Total 400 ml Balance 1115 ml Weight (Pounds): 208 Weight (Ounces): 3.0 Weight (Calculated Kilograms): 94.180246 Constitutional: appears stated age, AAO x 3; No apparent distress; well- developed, well-nourished Respiratory: No accessory muscle use; respiratory distress; No chest tender, No chest expansion is symmetric; chest is bilaterally symmetric; No lungs clear to percussion; lungs clear to auscultation; No crackles, No rhonchi, No rales, No stridor, No wheezing, No pleural rub, No other Cardiovascular: regular rate-rhythm, S1 and S2, systolic murmur, other (skin erosion at the site of implantable loop recorder.) Gastrointestional: No tender, No soft, No round, No distended, No pulsatile mass, No organomegaly, No guarding, No rebound, No tenderness, No hernia, No mass, No audible bowel sounds, No abnormal bowel sounds, No abdominal bruits, No spleenomegaly, No other Genital/Rectal: No tenderness; other (Ecchymoses all over scrotum and penis) Extremities: No normal range of motion, No non-tender, No normal inspection, No pedal edema, No calf tenderness, No normal capillary refill, No pelvis stable , No calf tenderness, No inflammation, No pedal edema, No slow capillary refill , No swelling, No other, No abrasion, No clubbing, No cyanosis, No ecchymosis, No laceration, No no lower extremity edema bilateral, No significant edema, No tenderness, No wound Neurologic/Psychiatric: alert, normal mood/affect, oriented x 3 Skin: normal color, warm/dry; No cyanosis, No cool, No diaphoresis, No damp, No ecchymosis, No jaundice, No mottled, No pallor, No rash, No tattoos/piercings , No ulcerations, No rash on exposed areas, No ulcerations on exposed areas, No other Results/Procedures: Labs Laboratory Tests 12/04/17 03:10: White Blood Count 16.0H, Red Blood Count 2.43L, Hemoglobin 7.5L, Hematocrit 23L , Mean Corpuscular Volume 96, Mean Corpuscular Hemoglobin 31, Mean Corpuscular Hemoglobin Concent 32, Red Cell Distribution Width 15.0H, Platelet Count 201, Mean Platelet Volume 10.3, Neutrophils (%) (Auto) 87H, Lymphocytes (%) (Auto) 5L , Monocytes (%) (Auto) 8, Eosinophils (%) (Auto) 0, Basophils (%) (Auto) 0, Neutrophils # (Auto) 14.0H, Lymphocytes # (Auto) 0.8L, Monocytes # (Auto) 1.3H, Eosinophils # (Auto) 0.0, Basophils # (Auto) 0.0, Neutrophils % (Manual) 88, Lymphocytes % (Manual) 7, Monocytes % (Manual) 5, Eosinophils % (Manual) 0, Basophils % (Manual) 0, Band Neutrophils 0, Nucleated Red Blood Cells 1, Polychromasia SLIGHT, Anisocytosis SLIGHT, Macrocytosis SLIGHT, Elliptocytes SLIGHT, Sodium Level 140, Potassium Level 3.9, Chloride Level 115H, Carbon Dioxide Level 17L, Anion Gap 8, Blood Urea Nitrogen 21H, Creatinine 1.14, Estimat Glomerular Filtration Rate > 60, BUN/Creatinine Ratio 18, Glucose Level 109H, Calcium Level 8.1L, Phosphorus Level 2.1L, Magnesium Level 2.3 Microbiology 12/01/17 Blood Culture - Preliminary, Resulted No growth 12/02/17 MRSA Screen - Final, Complete MRSA not isolated 12/01/17 Urine Culture - Final, Complete NO GROWTH A/P: Assessment/Dx: Sepsis, Anemia, Past CVA, 2012 Shortness of breath, PAF, currently sinus rhythm. Severe 3 vessel CAD, Mild to moderate , Second degree AV block. Currently sinus rhythm with 1-1 conduction Skin erosion at the site of implantable loop recorder, ILR removed. Acute kidney injury Plan: Severe sepsis, likely source is pneumonia. Broad-spectrum antibiotics, sepsis protocol. Skin erosion at the site of implantable loop recorder: ILR removed. Severe CAD with severe stenosis of the mid LAD and involves the ostium of the large D1, severe stenosis if the OM which after the stenosis divides up into two large branches, Severe pRCA stenosis. He will benefit more from surgical revascularization with likely five bypass grafts. Was referred to [facility] but patient was found to be an inappropriate candidate for surgical revascularization. Also the was not in favor of cardiac surgery. I discussed at length with the patient and may consider high risk multivessel PCI. We may have to stage the procedures due to his previous history of acute kidney injury. Also we will have to wait for sepsis resolution. PAF -continue Eliquis and rate control. Remote CVA - stroke was in 2012. Residual abnormalities present. Mild/Moderate present. mean gradient 17mmhg. Monitor clinically. Transient symptomatic Second degree AV block with hypotension. Sinus rhythm with 1-1 conduction throughout this admission. Complicated patient with multiple medical issues. Thank you for your consultation. Please call me if you have any questions. Alexis Lancaster MD, FACP, FACC, FSCAI, FHRS, CCDS Interventional Cardiology Cardiac Electrophysiology Vascular Medicine and Endovascular Interventions Focused Exam Lactate Level 12/01/17 22:35: Lactic Acid Level 5.41*H 12/02/17 00:37: Lactic Acid Level 1.28 Time of Focused Exam: 00:01 Genesis LANCASTER MD Dec 03, 2017 10:16 am
[2017-12-03] MEDS: 1/2 NS W/KCL 20 MEQ/L 1,000 ML IV SCH ×2 (11:03→18:25)
[2017-12-03] MEDS: ROSUVASTATIN 20 MG (CRESTOR) TABLET PO SCH (21:04)
[2017-12-04] VITALS (28 sets, daily range): BP systolic 88–139; BP diastolic 47–103
[2017-12-04] MEDS: methylPREDNISolone 40 MG/ML (Solu-MEDROL) VIAL IV SCH ×4 (00:10→18:07)
[2017-12-04] MEDS: VANCOMYCIN 1500 MG/NS 500 ML IVPB IV SCH ×2 (02:06)
[2017-12-04] MEDS: RT-ALBUTEROL/IPRATROPIUM 3 ML (DUONEB) VIAL INH SCH ×6 (02:50→22:00)
[2017-12-04 03:17] LABS: BASOPHILS % (AUTO) 0 % (0-10); EOSINOPHILS % (AUTO) 0 % (0-10); HEMATOCRIT 23 % (40-54); HEMOGLOBIN 7.5 G/DL (13.3-17.7); LYMPHOCYTES # (AUTO) 0.8 X 10^3 (1.0-4.0); LYMPHOCYTES % (AUTO) 5 % (12-44); MEAN CORPUSCULAR HEMOGLOBIN 31 PG (25-34); MEAN CORPUSCULAR HGB CONC 32 G/DL (32-36); MEAN CORPUSCULAR VOLUME 96 FL (80-99); MEAN PLATELET VOLUME 10.3 FL (7.4-10.4); MONOCYTES # (AUTO) 1.3 X 10^3 (0.0-1.0); MONOCYTES % (AUTO) 8 % (0-12); NEUTROPHILS % (AUTO) 87 % (42-75); PLATELET COUNT 201 10^3/uL (130-400); RED BLOOD COUNT 2.43 10^6/uL (4.35-5.85)
[2017-12-04 03:35] LABS: BUN/CREATININE RATIO 18; CALCIUM 8.1 MG/DL (8.5-10.1); CARBON DIOXIDE 17 MMOL/L (21-32); CHLORIDE 115 MMOL/L (98-107); CREATININE SERUM 1.14 MG/DL (0.60-1.30); GFR ESTIMATED > 60; GLUCOSE 109 MG/DL (70-105); MAGNESIUM 2.3 MG/DL (1.8-2.4); PHOSPHORUS 2.1 MG/DL (2.3-4.7); POTASSIUM 3.9 MMOL/L (3.6-5.0); SODIUM 140 MMOL/L (135-145)
[2017-12-04 03:43] LABS: BAND NEUTROPHILS 0 %; BASOPHILS % (MANUAL) 0 %; EOSINOPHILS % (MANUAL) 0 %; LYMPHOCYTES % (MANUAL) 7 %; MONOCYTES % (MANUAL) 5 %; NEUTROPHILS % (MANUAL) 88 %; NUCLEATED RED BLOOD CELLS 1
[2017-12-04 03:44] LABS: ANISOCYTOSIS SLIGHT; ELLIPT/OVALOCYTES SLIGHT; POLYCHROMASIA SLIGHT
--- NOTE | 2017-12-04 05:08 | Pulmonary Progress Note ---
Sepsis Event Evaluation Height, Weight, BMI Height: 5'8.00" Weight: 208lbs. 3.0oz. 94.288402cc; 28.4 BMI Method:Stated Focused Exam Lactate Level 12/01/17 22:35: Lactic Acid Level 5.41*H 12/02/17 00:37: Lactic Acid Level 1.28 Time of Focused Exam: 00:01 Exam Exam Vital Signs Date Time Temp Pulse Resp B/P (MAP) Pulse Ox O2 Delivery O2 Flow Rate FiO2 12/04/17 04:30 87 25 94 21.00 12/04/17 02:50 80 22 100 21.00 12/04/17 02:00 81 20 120/62 (81) 97 NIV Bilevel 21.00 12/04/17 01:00 82 12/04/17 01:00 82 20 138/71 (93) 98 NIV Bilevel 21.00 12/04/17 00:01 89 23 98 21.00 12/04/17 00:00 NIV Bilevel 25 12/04/17 00:00 99.2 12/04/17 00:00 90 25 124/103 (110) 91 NIV Bilevel 21.00 12/03/17 23:00 95 24 144/62 (89) 94 NIV Bilevel 21.00 12/03/17 22:00 87 27 144/62 (89) 90 NIV Bilevel 21.00 12/03/17 21:45 86 28 96 21.00 12/03/17 21:00 87 27 146/76 (99) 98 NIV Bilevel 21.00 12/03/17 20:00 99.7 12/03/17 20:00 96 35 122/90 (101) 91 NIV Bilevel 21.00 18 20:00 NIV Bilevel 25 12/03/17 19:10 78 16 100 25.00 18 19:10 78 15 100 NIV Bilevel 21.00 12/03/17 19:00 84 18 115/96 (102) 99 NIV Bilevel 25.00 18 19:00 84 18 18:00 85 22 129/59 (82) 100 NIV Bilevel 25.00 12/03/17 17:00 83 24 108/68 (81) 90 NIV Bilevel 25.00 12/03/17 16:00 98.6 9/18/18 16:00 89 31 115/72 (86) 99 NIV Bilevel 25.00 12/03/17 16:00 79 20 97 25.00 12/03/17 15:45 NIV Bilevel 25 12/03/17 15:00 86 27 96/78 (84) 96 NIV Bilevel 25.00 12/03/17 14:00 84 22 110/71 (84) 100 NIV Bilevel 25.00 12/03/17 13:50 81 22 100 25.00 12/03/17 13:00 77 17 112/62 (79) 99 NIV Bilevel 25.00 12/03/17 13:00 76 12/03/17 12:14 81 16 93 25.00 12/03/17 12:00 80 20 97/53 (68) 100 NIV Bilevel 25.00 12/03/17 11:39 100 NIV Bilevel 25 12/03/17 11:22 97.3 12/03/17 11:00 80 20 111/65 (80) 98 NIV Bilevel 25.00 12/03/17 10:13 78 18 90 25.00 12/03/17 10:00 71 14 102/63 (76) 100 NIV Bilevel 25.00 12/03/17 09:00 71 14 107/57 (74) 100 NIV Bilevel 25.00 12/03/17 08:00 98 NIV Bilevel 25 12/03/17 08:00 97.8 12/03/17 08:00 77 15 99 25.00 12/03/17 08:00 79 14 84/48 (60) 100 NIV Bilevel 25.00 12/03/17 07:00 69 14 103/51 (68) 100 NIV Bilevel 25.00 12/03/17 07:00 73 12/03/17 06:00 66 15 99/59 (72) 100 NIV Bilevel 25.00 12/03/17 06:00 77 18 100 25.00 I & O 12/04/17 07:00 Intake Total 1665 ml Output Total 670 ml Balance 995 ml Height & Weight Height: 5'8.00" Weight: 208lbs. 3.0oz. 94.076082xz; 28.4 BMI Method:Stated General Appearance: No Apparent Distress, WD/WN HEENT: PERRL/EOMI, Pharynx Normal Neck: Full Range of Motion, Supple Respiratory: Chest Non Tender, Lungs Clear, Normal Breath Sounds, No Accessory Muscle Use Cardiovascular: Regular Rate, Rhythm Capillary Refill: Less Than 3 Seconds Peripheral Pulses: 2+ Dorsalis Pedis (R), 2+ Left Dors-Pedis (L) Gastrointestinal: normal bowel sounds, non tender, soft Extremity: Normal Capillary Refill, Non Tender, No Calf Tenderness, No Pedal Edema Neurologic/Psychiatric: Alert, Oriented x3, No Motor/Sensory Deficits, Normal Mood/Affect Skin: Warm/Dry Lymphatic: No Adenopathy Results Lab Laboratory Tests 12/02/17 06:01 12/02/17 16:20 12/03/17 04:05 12/04/17 03:10 Assessment/Plan Assessment/Plan Acute on chronic respiratory failure -BiPAP, oxygen -Will trial pt off bipap this AM -SVNS Q4hrs -SOlumedrol 40 IV Q 6 Hx of COPD Severe CAD with concurrent NSTEMI (troponin 4.85) -PT was not a candidate for CABG per -He was just discharged from day prior to this admission. -Cardiology following Severe sepsis with UTI and pneumonia -Continue Cefepime, and D/C vanco -Await clancy cultures Anemia --Stable -Occult stool -Monitor -PT is on plavix and Eliquis MEtabolic acidosis -IVF -Will Give 2amps of bicarb Hx of CVA with slurred speech at baseline Will make pt ICU stepdown status. NEO MCCRACKEN DO Dec 04, 2017 05:08
[2017-12-04] MEDS ORDERED: SODIUM BICARB 8.4% 50 MEQ/50 ML (ABBOTT) SYR IV ONE (05:15)
[2017-12-04] MEDS ORDERED: SODIUM PHOSPHATE INJ 30 MM in NS (IVPB) 250 ML IV ONE (05:15)
[2017-12-04] MEDS: VASOPRESSIN INJECTION 20 UNIT in NS (IVPB) 100 ML IV SCH ×3 (05:32→20:28)
[2017-12-04] MEDS: POTASSIUM CL 10MEQ/50ML IVPB 50 ML IV SCH (06:15)
[2017-12-04] MEDS: MAGNESIUM 1 GM/100 ML IVPB 100 ML IV SCH (06:15)
[2017-12-04] MEDS: KCL 20 MEQ TAB (K-DUR) PO SCH (06:16)
[2017-12-04] MEDS: CATHETER FLUSH 10 ML SYR IV SCH ×3 (06:20→21:12)
[2017-12-04] MEDS: 1/2 NS W/KCL 20 MEQ/L 1,000 ML IV SCH ×2 (08:01→21:30)
[2017-12-04] MEDS: CEFEPIME 2 GM/NS 50 ML IVPB IV SCH ×4 (08:02→21:12)
[2017-12-04] MEDS: CLOPIDOGREL 75 MG (PLAVIX) TABLET PO SCH (08:02)
[2017-12-04] MEDS: PANTOPRAZOLE 40 MG (PROTONIX) VIAL IV SCH (08:02)
[2017-12-04] MEDS: ENOXAPARIN 80 MG/0.8 ML (LOVENOX) SYR SC SCH ×2 (08:02→21:12)
--- NOTE | 2017-12-04 08:40 | Cardiology Progress Note ---
Cardiology SOAP Progress Note Subjective: In mild respiratory distress. Objective: I&O/Vital Signs 12/03/17 12/04/17 12/04/17 12/04/17 23:00 00:00 00:00 00:00 Temp 99.2 Pulse 95 90 Resp 24 25 B/P (MAP) 144/62 (89) 124/103 (110) Pulse Ox 94 91 O2 Delivery NIV Bilevel NIV Bilevel NIV Bilevel O2 Flow Rate 21.00 21.00 FiO2 25 12/04/17 12/04/17 12/04/17 12/04/17 00:01 01:00 01:00 02:00 Pulse 89 82 82 81 Resp 23 20 20 B/P (MAP) 138/71 (93) 120/62 (81) Pulse Ox 98 98 97 O2 Delivery NIV Bilevel NIV Bilevel O2 Flow Rate 21.00 21.00 21.00 12/04/17 12/04/17 12/04/17 12/04/17 02:50 03:00 04:00 04:00 Temp 99.0 Pulse 80 83 Resp 22 23 B/P (MAP) 95/77 (83) Pulse Ox 100 98 O2 Delivery NIV Bilevel NIV Bilevel O2 Flow Rate 21.00 21.00 FiO2 25 12/04/17 12/04/17 12/04/17 12/04/17 04:00 04:30 05:00 05:26 Pulse 80 87 83 89 Resp 22 25 32 39 B/P (MAP) 117/88 (98) 126/60 (82) Pulse Ox 92 94 96 90 O2 Delivery NIV Bilevel NIV Bilevel High Flow N/C O2 Flow Rate 21.00 21.00 21.00 10.00 12/04/17 12/04/17 12/04/17 12/04/17 06:00 06:00 06:45 07:00 Pulse 87 102 Resp 20 23 B/P (MAP) 120/56 (77) 88/64 (72) Pulse Ox 99 97 93 O2 Delivery High Flow N/C High Flow N/C High Flow N/C High Flow N/C O2 Flow Rate 10.00 10.00 10.00 10.00 12/04/17 12/04/17 12/04/17 12/04/17 07:24 08:00 08:00 08:05 Temp 98.9 Pulse 103 101 Resp 31 B/P (MAP) 136/70 (92) Pulse Ox 98 O2 Delivery High Flow N/C High Flow N/C O2 Flow Rate 10.00 10.00 12/04/17 12/04/17 12/04/17 09:00 09:58 10:00 Pulse 118 118 Resp 36 32 B/P (MAP) 134/87 (103) 126/102 (110) Pulse Ox 95 97 94 O2 Delivery High Flow N/C High Flow N/C High Flow N/C O2 Flow Rate 10.00 10.00 10.00 12/04/17 00:00 Intake Total 1515 ml Output Total 400 ml Balance 1115 ml Weight (Pounds): 215 Weight (Ounces): 3.0 Weight (Calculated Kilograms): 97.372382 Constitutional: appears stated age, AAO x 3, apparent distress, well-developed , well-nourished Respiratory: accessory muscle use, respiratory distress; No chest tender, No chest expansion is symmetric; chest is bilaterally symmetric; No lungs clear to percussion, No crackles, No rhonchi, No rales, No stridor; wheezing; No pleural rub; other (mild wheezing.) Cardiovascular: regular rate-rhythm, S1 and S2, systolic murmur, other (skin erosion at the site of implantable loop recorder.) Gastrointestional: No tender, No soft, No round, No distended, No pulsatile mass, No organomegaly, No guarding, No rebound, No tenderness, No hernia, No mass, No audible bowel sounds, No abnormal bowel sounds, No abdominal bruits, No spleenomegaly, No other Genital/Rectal: No tenderness; other (Ecchymoses all over scrotum and penis) Extremities: No normal range of motion, No non-tender, No normal inspection, No pedal edema, No calf tenderness, No normal capillary refill, No pelvis stable , No calf tenderness, No inflammation, No pedal edema, No slow capillary refill , No swelling, No other, No abrasion, No clubbing, No cyanosis, No ecchymosis, No laceration, No no lower extremity edema bilateral, No significant edema, No tenderness, No wound Neurologic/Psychiatric: alert, normal mood/affect, oriented x 3 Skin: normal color, warm/dry; No cyanosis, No cool, No diaphoresis, No damp, No ecchymosis, No jaundice, No mottled, No pallor, No rash, No tattoos/piercings , No ulcerations, No rash on exposed areas, No ulcerations on exposed areas, No other Results/Procedures: Labs Laboratory Tests 12/04/17 03:10: White Blood Count 16.0H, Red Blood Count 2.43L, Hemoglobin 7.5L, Hematocrit 23L , Mean Corpuscular Volume 96, Mean Corpuscular Hemoglobin 31, Mean Corpuscular Hemoglobin Concent 32, Red Cell Distribution Width 15.0H, Platelet Count 201, Mean Platelet Volume 10.3, Neutrophils (%) (Auto) 87H, Lymphocytes (%) (Auto) 5L , Monocytes (%) (Auto) 8, Eosinophils (%) (Auto) 0, Basophils (%) (Auto) 0, Neutrophils # (Auto) 14.0H, Lymphocytes # (Auto) 0.8L, Monocytes # (Auto) 1.3H, Eosinophils # (Auto) 0.0, Basophils # (Auto) 0.0, Neutrophils % (Manual) 88, Lymphocytes % (Manual) 7, Monocytes % (Manual) 5, Eosinophils % (Manual) 0, Basophils % (Manual) 0, Band Neutrophils 0, Nucleated Red Blood Cells 1, Polychromasia SLIGHT, Anisocytosis SLIGHT, Macrocytosis SLIGHT, Elliptocytes SLIGHT, Sodium Level 140, Potassium Level 3.9, Chloride Level 115H, Carbon Dioxide Level 17L, Anion Gap 8, Blood Urea Nitrogen 21H, Creatinine 1.14, Estimat Glomerular Filtration Rate > 60, BUN/Creatinine Ratio 18, Glucose Level 109H, Calcium Level 8.1L, Phosphorus Level 2.1L, Magnesium Level 2.3, Troponin I 2.30*H Microbiology 12/01/17 Blood Culture - Preliminary, Resulted No growth 12/02/17 MRSA Screen - Final, Complete MRSA not isolated 12/01/17 Urine Culture - Final, Complete NO GROWTH A/P: Assessment/Dx: Sepsis, Anemia, Past CVA, 2012 Shortness of breath, PAF, currently sinus rhythm. Severe 3 vessel CAD, Mild to moderate , Second degree AV block. Currently sinus rhythm with 1-1 conduction Skin erosion at the site of implantable loop recorder, ILR removed. Acute kidney injury Plan: Severe sepsis with respiratory distress., likely source is pneumonia. Broad- spectrum antibiotics, sepsis protocol. Skin erosion at the site of implantable loop recorder: ILR removed. Non-STEMI: On aggressive medical therapy. Troponin decreased significantly however still abnormal. Continue dual antiplatelet therapy. Severe CAD with severe stenosis of the mid LAD and involves the ostium of the large D1, severe stenosis if the OM which after the stenosis divides up into two large branches, Severe pRCA stenosis. Was referred to [facility] but patient was found to be an inappropriate candidate for surgical revascularization. Also the was not in favor of cardiac surgery. I discussed at length with the patient and may consider high risk multivessel PCI in 2-3 weeks after resolution of sepsis/ pulmonary issues and patient is discharged and follows me as an outpatient. We may have to stage the procedures due to his previous history of acute kidney injury. Also we will have to wait for sepsis resolution. Discussed with Dr. Dorado. PAF -continue Eliquis and rate control. Remote CVA - stroke was in 2012. Residual abnormalities present. Mild/Moderate present. mean gradient 17mmhg. Monitor clinically. Transient symptomatic Second degree AV block with hypotension. Sinus rhythm with 1-1 conduction throughout this admission. Complicated patient with multiple medical issues. Thank you for your consultation. Please call me if you have any questions. Alexis Lancaster MD, FACP, FACC, FSCAI, FHRS, CCDS Interventional Cardiology Cardiac Electrophysiology Vascular Medicine and Endovascular Interventions Focused Exam Lactate Level 12/01/17 22:35: Lactic Acid Level 5.41*H 12/02/17 00:37: Lactic Acid Level 1.28 Time of Focused Exam: 00:01 Genesis LANCASTER MD Dec 04, 2017 8:40 am
--- NOTE | 2017-12-04 09:07 | Diagnostic Imaging Report ---
INDICATION: Shortness of air. TECHNIQUE: Single view chest 3:40 AM. CORRELATION STUDY: 12/03/2017 FINDINGS: Asymmetrically elevated right diaphragm with crowding of the right lung base. Mildly prominent interstitial markings throughout both lung joseph. No focal infiltrate. Heart size enlarged. Mediastinum prominent and relatively stable. Vasculature appears generally stable. IMPRESSION: 1. Hypoventilation with particularly right lung volume loss. No definitive infiltrate. Cardiac enlargement without evidence of overt failure. Dictated by: Dictated on workstation # [id number]
--- NOTE | 2017-12-04 09:25 | Progress Note ---
Subjective Date Seen by a Provider: Dec 04, 2017 Time Seen by a Provider: 08:15 Subjective/Events-last exam PT REPORTS THAT HE IS FEELING BETTER THIS MORNING. HE WAS ON NASAL CANNULA - OFF OF BIPAP AND MAINTAINING HIS OXYGEN SATURATION WITH JUST NASAL CANNULA. HE WAS MORE UNDERSTANDABLE TODAY WITH CONVERSATION AND HE REPORTS THAT HE IS HAVING DRY MOUTH, SOME DRY THROAT, AND SOME MID-STERNAL CHEST DISCOMFORT. Review of Systems General: No Chills; Fatigue, Malaise HEENT: No Head Aches; Sore Throat, Other (DRY MOUTH, DRY THROAT) Pulmonary: Dyspnea, Cough Cardiovascular: Chest Pain, Edema; No: Palpitations Gastrointestinal: No: Nausea, Abdominal Pain Musculoskeletal: No: back pain Neurological: Weakness, Other (CHRONIC WEAKNESS, IMPROVED DYSARTHRIA) Focused Exam Lactate Level 12/01/17 22:35: Lactic Acid Level 5.41*H 12/02/17 00:37: Lactic Acid Level 1.28 Time of Focused Exam: 00:01 Objective Exam Last Set of Vital Signs Vital Signs Date Time Temp Pulse Resp B/P (MAP) Pulse Ox O2 Delivery O2 Flow Rate FiO2 12/04/17 08:05 98.9 12/04/17 07:24 103 12/04/17 06:00 High Flow N/C 10.00 12/04/17 06:00 20 120/56 (77) 99 12/04/17 04:00 25 Capillary Refill : Less Than 3 Seconds I&O Intake and Output 12/04/17 00:00 Intake Total 1765 ml Output Total 965 ml Balance 800 ml Intake Oral 0 ml IV Total 1765 ml Output Urine Total 965 ml General: Alert, Oriented X3, Cooperative HEENT: Atraumatic, PERRLA Neck: Supple Lungs: Clear to Auscultation Heart: Regular Rate Abdomen: Normal Bowel Sounds, Soft, No Tenderness Skin: No Rashes Neuro: Other (IMPROVED SPEECH) Psych/Mental Status: Mental Status NL, Mood NL Results Lab Laboratory Tests 12/04/17 03:10: White Blood Count 16.0H, Red Blood Count 2.43L, Hemoglobin 7.5L, Hematocrit 23L , Mean Corpuscular Volume 96, Mean Corpuscular Hemoglobin 31, Mean Corpuscular Hemoglobin Concent 32, Red Cell Distribution Width 15.0H, Platelet Count 201, Mean Platelet Volume 10.3, Neutrophils (%) (Auto) 87H, Lymphocytes (%) (Auto) 5L , Monocytes (%) (Auto) 8, Eosinophils (%) (Auto) 0, Basophils (%) (Auto) 0, Neutrophils # (Auto) 14.0H, Lymphocytes # (Auto) 0.8L, Monocytes # (Auto) 1.3H, Eosinophils # (Auto) 0.0, Basophils # (Auto) 0.0, Neutrophils % (Manual) 88, Lymphocytes % (Manual) 7, Monocytes % (Manual) 5, Eosinophils % (Manual) 0, Basophils % (Manual) 0, Band Neutrophils 0, Nucleated Red Blood Cells 1, Polychromasia SLIGHT, Anisocytosis SLIGHT, Macrocytosis SLIGHT, Elliptocytes SLIGHT, Sodium Level 140, Potassium Level 3.9, Chloride Level 115H, Carbon Dioxide Level 17L, Anion Gap 8, Blood Urea Nitrogen 21H, Creatinine 1.14, Estimat Glomerular Filtration Rate > 60, BUN/Creatinine Ratio 18, Glucose Level 109H, Calcium Level 8.1L, Phosphorus Level 2.1L, Magnesium Level 2.3, Troponin I 2.30*H Microbiology 12/01/17 Blood Culture - Preliminary, Resulted No growth 12/02/17 MRSA Screen - Final, Complete MRSA not isolated 12/01/17 Urine Culture - Final, Complete NO GROWTH Assessment/Plan Assessment/Plan Assess & Plan/Chief Complaint SEPSIS PNEUMONIA CORONARY ARTERY DISEASE RECENT NSTEMI HYPERTENSION ATRIAL FIBRILLATION HX OF STROKE WITH RESIDUAL ELEVATED PSA SEPSIS DUE TO PNEUMONIA - PT ON HOSPITAL ACQUIRED PNEUMONIA PROTOCOL - CONTINUE WITH CURRENT MANAGEMENT. - MONITOR SERIAL CHEST XRAYS. IMPROVED DYSPNEA WITH STEROIDS AND NOW ON NASAL CANNULA. CORONARY ARTERY DISEASE AND RECENT NSTEMI - DUE TO MULTIVESSEL DISEASE - PT NOT A SURGICAL CANDIDATE PER [facility] - DISCUSSED WITH DR. SANTANA TODAY- HE REPORTS THAT HE COULD DO STAGED INTERVENTION WITH FIRST APPROACH LIKELY THE RCA TO HELP WITH IMPROVED CORONARY FLOW. REPEAT TROPONIN THIS MORNING. DR. SANTANA STATES THAT DEPENDING ON IF NORA OPTS FOR PALLIATIVE CARE VERSUS PROGRESSIVE TREATMENT WE WILL THEN DECIDE ON THE HEART CATHETERIZATION AND POSSIBLE STENTING ONCE HE IS BETTER FROM HIS CURRENT ILLNESS. HYPERTENSION - CONTINUE TO MONITOR PRESSURE - ATRIAL FIBRILLATION - RATE CONTROLLED ON CURRENT REGIMEN -DR. SANTANA REMOVED MONITOR. HX OF STROKE WITH RESIDUAL ELEVATED PSA - INVESTIGATION PENDING. IMPROVED SPEECH - HOWEVER, WILL ORDER SPEECH THERAPY. Clinical Quality Measures Admission Status Admission Dx SEPSIS PNEUMONIA CORONARY ARTERY DISEASE RECENT NSTEMI HYPERTENSION ATRIAL FIBRILLATION HX OF STROKE WITH RESIDUAL ELEVATED PSA SEPSIS DUE TO PNEUMONIA - PT ON HOSPITAL ACQUIRED PNEUMONIA PROTOCOL - CONTINUE WITH CURRENT MANAGEMENT. - MONITOR SERIAL CHEST XRAYS. CORONARY ARTERY DISEASE AND RECENT NSTEMI - DUE TO MULTIVESSEL DISEASE - PT NOT A SURGICAL CANDIDATE PER [facility] - WILL CONTINUE WITH MEDICAL MANAGEMENT. HYPERTENSION - CONTINUE TO MONITOR PRESSURE - ATRIAL FIBRILLATION - RATE CONTROLLED ON CURRENT REGIMEN - ELIQUIS FOR PROPHYLAXIS HX OF STROKE WITH RESIDUAL ELEVATED PSA - INVESTIGATION PENDING DVT/VTE Risk/Contraindication: Risk Factor Score Per Nursin RFS Level Per Nursing on Admit: 4+=Very High JACQUELYN REAL MD Dec 04, 2017 09:25
--- NOTE | 2017-12-04 15:43 | ST Cognitive Linguistic Eval ---
Speech Evaluation-General Medical Diagnosis Sepsis Onset Date: Dec 01, 2017 Therapy Diagnosis Therapy Diagnosis: Communication deficits Precautions Precautions/Isolations: Fall Prevention, Standard Precautions, Pressure Ulcer Referral Referring Physician: Dr. Tiwari Reason for Referral: Evaluation/Treatment Medical History Hx of CVA in 2016 possibly. Current History Pt brought into ED for becoming increasingly SOB on Saturday. He was found to have sepsis from Pneumonia and was sent up to ICU for monitoring. Pt reported that his difficulty with speech is a recent change...not a result of his stroke. Reviewed History: Yes Social History Current Living Status: Spouse Speech PLF-Current Status Prior Level of Function Pt living at home with his . Subjective Pt in bed. Pleasant and cooperative. Pain Numeric Pain Scale: 0-No Pain Language Eval: Auditory Comprehends Simple Yes/No Ques: Functional Follows 1-Step Commands: Functional Follows General Conversations: Mild Language Eval: Verbal Language Completes Spontaneous Greeting: Functional Produces Auto, Serial Info: Mild Imitates Simple Words/Phrases: Mild Word Finding: Moderate States Basic Personal Info: Mild Language Evaluation: Reading NT Cognitive Patient Orientation person. Other information not assessed. Objective Cognitive Domain Attention: WNL Did not assess cognitive functioning as this was not the focus of the referral. Objective Results Informal assessment was used. Pt able to state name, age, date of (he was off by one year). [facility] revealed good movement for most lip and tongue function. Pt did have difficulty with verbalizing "cookie cookie". He did not produce a clear "k " sound indicating weak tongue base function. Pt able to recite automatics such as counting 1-10, Days of the week and Months of the year with little difficulty. He was able to name common objects in room His speech was characterized as non-fluent. Etiology unknown. Oral Motor/Speech Production non-fluent. Impression Speech non-fluent. Etiology unknown. Speech Short Term Goals Short Term Goals Short Term Goals Pt will be educated in compensatory techniques to increase speech fluency. Pt will demonstrate increased fluency at the phrase level with min assist. Time Frame-ST week Speech Chcf Goals Chcf Goals Pt will exhibit increased fluent speech with at least 85% intelligibility to listeners. Time Frame: 1-2 weeks Speech-Plan Patient/Family Goals Patient/Family Goals: to talk better Treatment Plan Speech Therapy Treatment Plan: Modify Plan, See Comments (Skilled ST indicated) pt receptive to sp tx. Frequency: 4 times per week Estimated Hrs Per Day: .5 hour per day Rehab Potential: Good Pt/Family Agrees to Plan: Yes Safety Risks/Education Teaching Recipient: Patient Teaching Methods: Discussion Response to Teaching: Verbalize Understanding Time Speech Therapy Time In: 15:20 Speech Therapy Time Out: 15:40 Total Billed Time: 20 Billed Treatment Time 1, SPSNDCOMP No SAGE DANIELLE Dec 04, 2017 15:43
[2017-12-04] MEDS: DEXMEDETOMIDINE 400 MCG/NS 100 ML IV DRIP IV SCH ×2 (18:28)
[2017-12-04] MEDS: ROSUVASTATIN 20 MG (CRESTOR) TABLET PO SCH (21:11)
[2017-12-04] MEDS ORDERED: BISACODYL 10 MG SUPP (DULCOLAX) PR ONE (22:00)
[2017-12-04] MEDS ORDERED: BISACODYL 10 MG SUPP (DULCOLAX) ONE (22:35)
[2017-12-05] VITALS (28 sets, daily range): BP systolic 98–128; BP diastolic 57–96
[2017-12-05] MEDS: methylPREDNISolone 40 MG/ML (Solu-MEDROL) VIAL IV SCH ×4 (00:36→18:30)
[2017-12-05] MEDS: RT-ALBUTEROL/IPRATROPIUM 3 ML (DUONEB) VIAL INH SCH ×6 (02:22→22:00)
[2017-12-05 03:42] LABS: BASOPHILS % (AUTO) 0 % (0-10); EOSINOPHILS % (AUTO) 0 % (0-10); HEMATOCRIT 24 % (40-54); HEMOGLOBIN 8.1 G/DL (13.3-17.7); LYMPHOCYTES # (AUTO) 0.7 X 10^3 (1.0-4.0); LYMPHOCYTES % (AUTO) 4 % (12-44); MEAN CORPUSCULAR HEMOGLOBIN 32 PG (25-34); MEAN CORPUSCULAR HGB CONC 34 G/DL (32-36); MEAN CORPUSCULAR VOLUME 95 FL (80-99); MEAN PLATELET VOLUME 10.4 FL (7.4-10.4); MONOCYTES # (AUTO) 1.1 X 10^3 (0.0-1.0); MONOCYTES % (AUTO) 7 % (0-12); NEUTROPHILS # (AUTO) 13.7 X 10^3 (1.8-7.8); NEUTROPHILS % (AUTO) 88 % (42-75); PLATELET COUNT 222 10^3/uL (130-400); RED BLOOD COUNT 2.55 10^6/uL (4.35-5.85); RED CELL DISTRIBUTION WIDTH 15.3 % (10.0-14.5); WHITE BLOOD COUNT 15.5 10^3/uL (4.3-11.0)
[2017-12-05 04:19] LABS: CALCIUM 8.3 MG/DL (8.5-10.1); CREATININE SERUM 1.24 MG/DL (0.60-1.30); MAGNESIUM 2.4 MG/DL (1.8-2.4); PHOSPHORUS 2.5 MG/DL (2.3-4.7); POTASSIUM 4.1 MMOL/L (3.6-5.0)
[2017-12-05] MEDS: DEXMEDETOMIDINE 400 MCG/NS 100 ML IV DRIP IV SCH ×4 (04:55→21:41)
[2017-12-05] MEDS: VASOPRESSIN INJECTION 20 UNIT in NS (IVPB) 100 ML IV SCH ×3 (04:56→20:01)
[2017-12-05] MEDS: POTASSIUM CL 10MEQ/50ML IVPB 50 ML IV SCH (05:27)
[2017-12-05] MEDS: MAGNESIUM 1 GM/100 ML IVPB 100 ML IV SCH (05:28)
[2017-12-05] MEDS: KCL 20 MEQ TAB (K-DUR) PO SCH (05:28)
--- NOTE | 2017-12-05 06:22 | Pulmonary Progress Note ---
Subjective Time Seen by a Provider: 06:44 Subjective/Events-last exam Pt has been complaining of mild abdominal pain and constipation Sepsis Event Evaluation Height, Weight, BMI Height: 5'8.00" Weight: 215lbs. 3.0oz. 97.892759ru; 28.4 BMI Method:Stated Focused Exam Time of Focused Exam: 00:01 Exam Exam Vital Signs Date Time Temp Pulse Resp B/P (MAP) Pulse Ox O2 Delivery O2 Flow Rate FiO2 12/05/17 05:00 82 18 114/69 (84) 96 NIV Bilevel 30.00 12/05/17 04:29 71 16 95 30.00 12/05/17 04:00 High Flow N/C 10.00 12/05/17 04:00 74 15 103/60 (74) 95 NIV Bilevel 30.00 12/05/17 03:00 90 22 116/82 (93) 96 NIV Bilevel 30.00 12/05/17 02:25 80 18 95 NIV Bilevel 30.00 12/05/17 02:23 82 17 96 35.00 12/05/17 02:00 86 19 126/79 (95) 96 NIV Bilevel 35.00 12/05/17 01:00 94 26 114/73 (87) 96 NIV Bilevel 35.00 12/05/17 01:00 94 12/05/17 00:55 93 21 96 35.00 12/05/17 00:00 99 32 124/92 (103) 98 High Flow N/C 10.00 12/05/17 00:00 High Flow N/C 10.00 12/04/17 23:00 105 59 139/90 (106) 95 High Flow N/C 10.00 12/04/17 22:00 98 High Flow N/C 10.00 12/04/17 22:00 100 35 126/77 (93) 96 High Flow N/C 10.00 12/04/17 21:00 103 30 93/68 (76) 94 High Flow N/C 10.00 12/04/17 20:00 104 24 101/62 (75) 89 High Flow N/C 10.00 12/04/17 20:00 High Flow N/C 10.00 12/04/17 19:15 94 High Flow N/C 10.00 12/04/17 19:00 91 26 96/71 (79) 89 High Flow N/C 10.00 12/04/17 19:00 95 12/04/17 18:00 83 15 109/74 (86) 90 High Flow N/C 10.00 12/04/17 17:00 87 14 108/75 (86) 99 High Flow N/C 10.00 12/04/17 16:00 High Flow N/C 10.00 12/04/17 16:00 98.9 100 28 113/79 (90) 99 High Flow N/C 10.00 12/04/17 15:30 100 High Flow N/C 10.00 12/04/17 15:00 107 22 116/82 (93) 92 NIV Bilevel 35.00 12/04/17 14:26 140 32 95 70.00 12/04/17 14:10 95 NIV Bilevel 70.00 12/04/17 14:00 93 23 119/94 (102) 98 High Flow N/C 10.00 12/04/17 13:51 98 12/04/17 13:00 98 21 123/65 (84) 94 High Flow N/C 10.00 12/04/17 12:00 High Flow N/C 10.00 12/04/17 12:00 99.5 12/04/17 12:00 100 27 124/47 (72) 97 High Flow N/C 10.00 12/04/17 11:00 108 30 126/75 (92) 97 High Flow N/C 10.00 12/04/17 10:00 118 32 126/102 (110) 94 High Flow N/C 10.00 12/04/17 09:58 97 High Flow N/C 10.00 12/04/17 09:00 118 36 134/87 (103) 95 High Flow N/C 10.00 12/04/17 08:05 98.9 12/04/17 08:00 101 31 136/70 (92) 98 High Flow N/C 10.00 12/04/17 08:00 High Flow N/C 10.00 12/04/17 07:24 103 12/04/17 07:00 102 23 88/64 (72) 93 High Flow N/C 10.00 12/04/17 06:45 97 High Flow N/C 10.00 I & O 12/05/17 07:00 Intake Total 1410 ml Output Total 900 ml Balance 510 ml Height & Weight Height: 5'8.00" Weight: 215lbs. 3.0oz. 97.939089as; 28.4 BMI Method:Stated General Appearance: WD/WN, Moderate Distress HEENT: PERRL/EOMI, Pharynx Normal Neck: Full Range of Motion, Supple Respiratory: Chest Non Tender, Lungs Clear, Normal Breath Sounds, No Accessory Muscle Use Cardiovascular: Regular Rate, Rhythm Capillary Refill: Less Than 3 Seconds Peripheral Pulses: 2+ Dorsalis Pedis (R), 2+ Left Dors-Pedis (L) Gastrointestinal: normal bowel sounds, non tender, soft Extremity: Normal Capillary Refill, Non Tender, No Calf Tenderness, No Pedal Edema Neurologic/Psychiatric: Alert, No Motor/Sensory Deficits, Normal Mood/Affect Skin: Warm/Dry Lymphatic: No Adenopathy Results Lab Laboratory Tests 12/04/17 03:10 12/05/17 03:25 Assessment/Plan Assessment/Plan Acute on chronic respiratory failure -BiPAP- Vapotherm during the day, oxygen -Will trial pt off bipap this AM -SVNS Q4hrs -SOlumedrol 40 IV Q 6 Hx of COPD Severe CAD with concurrent NSTEMI (troponin 4.85) -PT was not a candidate for CABG per -He was just discharged from day prior to this admission. -Cardiology following Severe sepsis with UTI and pneumonia -Continue Cefepime, and D/C vanco -Await clancy cultures Anemia --Stable -Occult stool -Monitor -PT is on plavix and Eliquis MEtabolic acidosis -IVF -repeat LA and ABG today Hx of CVA with slurred speech at baseline NEO MCCRACKEN DO Dec 05, 2017 06:22
[2017-12-05] MEDS ORDERED: BISACODYL 10 MG SUPP (DULCOLAX) PR PRN (06:45)
[2017-12-05] MEDS: CATHETER FLUSH 10 ML SYR IV SCH ×3 (07:03→23:43)
[2017-12-05 07:55] LABS: ABG BASE EXCESS -5.5 MMOL/L (-2.5-2.5); ABG OXYGEN SATURATION 98 % (94-100); ABG PCO2 28 MMHG (35-45); ABG PH 7.42 (7.37-7.43); ABG PO2 99 MMHG (79-93); ABG TCO2 19.1 MMOL/L (21.0-31.0); ALLENS TEST YES-POS; PATIENT TEMP 97.4; VENTILATOR NO
[2017-12-05 07:56] LABS: INSPIRED O2 14L 60%
--- NOTE | 2017-12-05 08:17 | Diagnostic Imaging Report ---
INDICATION: Shortness of tear. TIME OF EXAM: 03:19 a.m. Correlation is made with prior study one day earlier. The heart size is stable. The right hemidiaphragm is mildly elevated. The atelectasis in the right base persists. Left lung appears fairly clear. No effusion or pneumothorax is seen. IMPRESSION: Stable chest since one day earlier. Dictated by: Dictated on workstation # [id number]
--- NOTE | 2017-12-05 08:34 | Progress Note ---
Subjective Date Seen by a Provider: Dec 05, 2017 Time Seen by a Provider: 08:30 Subjective/Events-last exam PT REPORTS THAT HE IS FEELING POORLY TODAY - HE STATES THAT HE IS HAVING TROUBLE GETTING HIS BREATH. HE STATES THAT HE DOES NOT HAVE ANY CHEST PAIN. HE DENIES DIZZINESS. STAFF REPORTS THAT HE HAS BEEN IMPULSIVE AND HAS BEEN STANDING AT BEDSIDE WITHOUT CALLING STAFF FOR HELP. Review of Systems General: No Chills; Fatigue HEENT: No Head Aches Pulmonary: Dyspnea, Cough Cardiovascular: No: Chest Pain, Palpitations Gastrointestinal: No: Nausea, Abdominal Pain Genitourinary: Other ([place] IN PLACE) Musculoskeletal: No: other Neurological: Weakness, Incoordination Focused Exam Lactate Level 12/05/17 06:40: Lactic Acid Level 0.97 Time of Focused Exam: 00:01 Lactic Acid Level Laboratory Tests Test 12/05/17 06:40 Lactic Acid Level 0.97 MMOL/L (0.50-2.00) Objective Exam Last Set of Vital Signs Vital Signs Date Time Temp Pulse Resp B/P (MAP) Pulse Ox O2 Delivery O2 Flow Rate FiO2 12/05/17 07:00 80 21 115/67 (83) 97 Vapotherm 60.00 14.00 12/05/17 06:32 60 12/05/17 04:00 98.7 Capillary Refill : Less Than 3 Seconds I&O Intake and Output 12/05/17 00:00 Intake Total 1925 ml Output Total 1000 ml Balance 925 ml Intake Oral 360 ml IV Total 1565 ml Output Urine Total 1000 ml General: Alert, Oriented X3, Cooperative HEENT: Atraumatic, PERRLA Neck: Supple Lungs: Other (DECREASED AIR MOVEMENT THROUGHOUT) Heart: Regular Rate Abdomen: Normal Bowel Sounds, Soft, No Tenderness Extremities: Other (EDEMA OF FEET) Skin: No Rashes Neuro: Other (IMPROVED SPEECH) Psych/Mental Status: Mental Status NL, Mood NL Results Lab Laboratory Tests 12/04/17 23:45: Stool Occult Blood Immunoassay NEGATIVE 12/05/17 03:25: White Blood Count 15.5H, Red Blood Count 2.55L, Hemoglobin 8.1L, Hematocrit 24L , Mean Corpuscular Volume 95, Mean Corpuscular Hemoglobin 32, Mean Corpuscular Hemoglobin Concent 34, Red Cell Distribution Width 15.3H, Platelet Count 222, Mean Platelet Volume 10.4, Neutrophils (%) (Auto) 88H, Lymphocytes (%) (Auto) 4L , Monocytes (%) (Auto) 7, Eosinophils (%) (Auto) 0, Basophils (%) (Auto) 0, Neutrophils # (Auto) 13.7H, Lymphocytes # (Auto) 0.7L, Monocytes # (Auto) 1.1H, Eosinophils # (Auto) 0.0, Basophils # (Auto) 0.0, Sodium Level 141, Potassium Level 4.1, Chloride Level 116H, Carbon Dioxide Level 16L, Anion Gap 9, Blood Urea Nitrogen 26H, Creatinine 1.24, Estimat Glomerular Filtration Rate 58, BUN/ Creatinine Ratio 21, Glucose Level 122H, Calcium Level 8.3L, Phosphorus Level 2.5, Magnesium Level 2.4 12/05/17 06:40: Lactic Acid Level 0.97 12/05/17 07:46: Blood Gas Puncture Site RT RAD, Blood Gas Patient Temperature 97.4, Arterial Blood pH 7.42, Arterial Blood Partial Pressure CO2 28L, Arterial Blood Partial Pressure O2 99H, Arterial Blood HCO3 18L, Arterial Blood Total CO2 19.1L, Arterial Blood Oxygen Saturation 98, Arterial Blood Base Excess -5.5L, Edison Test YES-POS, Blood Gas Ventilator Setting NO, Blood Gas Inspired Oxygen 14L 60% Microbiology 12/01/17 Blood Culture - Preliminary, Resulted No growth 12/02/17 MRSA Screen - Final, Complete MRSA not isolated 12/01/17 Urine Culture - Final, Complete NO GROWTH Assessment/Plan Assessment/Plan Assess & Plan/Chief Complaint SEPSIS PNEUMONIA CORONARY ARTERY DISEASE RECENT NSTEMI HYPERTENSION ATRIAL FIBRILLATION HX OF STROKE WITH RESIDUAL ELEVATED PSA ANEMIA COPD TOBACCOISM SEPSIS DUE TO PNEUMONIA AND COPD DUE TO HX OF TOBACCOISM- PT ON HOSPITAL ACQUIRED PNEUMONIA PROTOCOL - CONTINUE WITH CURRENT MANAGEMENT. - MONITOR SERIAL CHEST XRAYS. CHEST XRAY UNCHANGED FROM YESTERDAY - HOWEVER, PT HAS INCREASED OXYGEN REQUIREMENT - YESTERDAY WAS ON NASAL CANNULA, LAST NIGHT BACK ON BIPAP AND TODAY ON VAPOTHERM. PT ON STEROID THERAPY, CONTINUE WITH BREATHING TREATMENTS, WEAN VAPOTHERM ABLE, WILL NEED TO START WEANING STEROIDS WELL. CORONARY ARTERY DISEASE AND RECENT NSTEMI - DUE TO MULTIVESSEL DISEASE - PT NOT A SURGICAL CANDIDATE PER [facility] - DISCUSSED WITH DR. SANTANA - HE REPORTS THAT HE COULD DO STAGED INTERVENTION WITH FIRST APPROACH LIKELY THE RCA TO HELP WITH IMPROVED CORONARY FLOW. DR. SANTANA STATES THAT DEPENDING ON IF NORA OPTS FOR PALLIATIVE CARE VERSUS PROGRESSIVE TREATMENT WE WILL THEN DECIDE ON THE HEART CATHETERIZATION AND POSSIBLE STENTING ONCE HE IS BETTER FROM HIS CURRENT ILLNESS. HYPERTENSION - CONTINUE TO MONITOR PRESSURE - ATRIAL FIBRILLATION - RATE CONTROLLED ON CURRENT REGIMEN -DR. SANTANA REMOVED MONITOR. HX OF STROKE WITH RESIDUAL WEAKNESS AND DYSARTHRIA. PHYSICAL THERAPY AND SPEECH THERAPY ORDERED. ELEVATED PSA - INVESTIGATION PENDING. PT HAS POOR OVERALL PROGNOSIS WITH HIS CARDIAC DISEASE, DEBILITY FROM STROKE, AND HIS PULMONARY DISEASE WITH ACUTE INFECTION. HOWEVER HIS FAMILY WISHES TO PROCEED WITH STAGED CARDIAC INTERVENTIONS ONCE HE IS HEALTHY ENOUGH TO UNDERGO HEART CATHETERIZATION. Clinical Quality Measures Admission Status Admission Dx SEPSIS PNEUMONIA CORONARY ARTERY DISEASE RECENT NSTEMI HYPERTENSION ATRIAL FIBRILLATION HX OF STROKE WITH RESIDUAL ELEVATED PSA SEPSIS DUE TO PNEUMONIA - PT ON HOSPITAL ACQUIRED PNEUMONIA PROTOCOL - CONTINUE WITH CURRENT MANAGEMENT. - MONITOR SERIAL CHEST XRAYS. CORONARY ARTERY DISEASE AND RECENT NSTEMI - DUE TO MULTIVESSEL DISEASE - PT NOT A SURGICAL CANDIDATE PER [facility] - WILL CONTINUE WITH MEDICAL MANAGEMENT. HYPERTENSION - CONTINUE TO MONITOR PRESSURE - ATRIAL FIBRILLATION - RATE CONTROLLED ON CURRENT REGIMEN - ELIQUIS FOR PROPHYLAXIS HX OF STROKE WITH RESIDUAL ELEVATED PSA - INVESTIGATION PENDING DVT/VTE Risk/Contraindication: Risk Factor Score Per Nursin RFS Level Per Nursing on Admit: 4+=Very High JACQUELYN REAL MD Dec 05, 2017 08:34
[2017-12-05] MEDS: CEFEPIME 2 GM/NS 50 ML IVPB IV SCH ×4 (09:17→21:39)
[2017-12-05] MEDS: ENOXAPARIN 80 MG/0.8 ML (LOVENOX) SYR SC SCH ×2 (09:17→21:40)
[2017-12-05] MEDS: PANTOPRAZOLE 40 MG (PROTONIX) VIAL IV SCH (09:17)
[2017-12-05] MEDS: DOCUSATE SODIUM 100 MG (COLACE) CAP PO SCH ×2 (09:21→21:39)
[2017-12-05] MEDS: CLOPIDOGREL 75 MG (PLAVIX) TABLET PO SCH (09:21)
[2017-12-05] MEDS: 1/2 NS W/KCL 20 MEQ/L 1,000 ML IV SCH (09:55)
--- NOTE | 2017-12-05 14:17 | Cardiology Progress Note ---
Cardiology SOAP Progress Note Subjective: feeling unwell. Objective: I&O/Vital Signs 12/05/17 12/05/17 12/05/17 12/05/17 02:23 02:25 03:00 04:00 Temp 98.7 Pulse 82 80 90 Resp 17 18 22 B/P (MAP) 116/82 (93) Pulse Ox 96 95 96 O2 Delivery NIV Bilevel NIV Bilevel O2 Flow Rate 35.00 30.00 30.00 12/05/17 12/05/17 12/05/17 12/05/17 04:00 04:00 04:29 05:00 Pulse 74 71 82 Resp 15 16 18 B/P (MAP) 103/60 (74) 114/69 (84) Pulse Ox 95 95 96 O2 Delivery NIV Bilevel High Flow N/C NIV Bilevel O2 Flow Rate 30.00 10.00 30.00 30.00 12/05/17 12/05/17 12/05/17 12/05/17 06:00 06:32 06:35 07:00 Pulse 69 76 80 Resp 15 20 B/P (MAP) 99/64 (76) 122/96 (105) Pulse Ox 96 99 99 O2 Delivery NIV Bilevel Vapotherm Vapotherm O2 Flow Rate 30.00 14.00 60.00 14.00 FiO2 60 12/05/17 12/05/17 12/05/17 12/05/17 07:00 08:00 08:00 09:00 Temp 97.6 Pulse 80 78 Resp 21 12 B/P (MAP) 115/67 (83) 99/74 (82) Pulse Ox 97 95 O2 Delivery Vapotherm Vapotherm Vapotherm O2 Flow Rate 60.00 60.00 14.00 14.00 14.00 FiO2 60 12/05/17 12/05/17 12/05/17 12/05/17 09:00 10:00 11:00 11:00 Temp 97.9 Pulse 75 78 74 Resp 16 28 12 B/P (MAP) 106/72 (83) 108/67 (81) 105/72 (83) Pulse Ox 99 96 98 O2 Delivery Vapotherm Vapotherm Vapotherm O2 Flow Rate 60.00 60.00 40.00 14.00 14.00 14.00 12/05/17 12/05/17 12/05/17 12/05/17 11:00 11:10 12:00 12:31 Temp 96.7 Pulse 81 Resp 18 B/P (MAP) 103/74 (84) Pulse Ox 97 96 O2 Delivery Vapotherm Vapotherm Vapotherm O2 Flow Rate 14.00 14.00 40.00 14.00 FiO2 60 60 12/05/17 00:00 Intake Total 360 ml Output Total 630 ml Balance -270 ml Weight (Pounds): 215 Weight (Ounces): 0.0 Weight (Calculated Kilograms): [id number] Constitutional: appears stated age, AAO x 3, apparent distress, well-developed , well-nourished Respiratory: accessory muscle use, respiratory distress; No chest tender, No chest expansion is symmetric; chest is bilaterally symmetric; No lungs clear to percussion, No crackles, No rhonchi, No rales, No stridor; wheezing; No pleural rub; other (mild wheezing.) Cardiovascular: regular rate-rhythm, S1 and S2, systolic murmur, other (skin erosion at the site of implantable loop recorder.) Gastrointestional: No tender, No soft, No round, No distended, No pulsatile mass, No organomegaly, No guarding, No rebound, No tenderness, No hernia, No mass, No audible bowel sounds, No abnormal bowel sounds, No abdominal bruits, No spleenomegaly, No other Genital/Rectal: No tenderness; other (Ecchymoses all over scrotum and penis) Extremities: No normal range of motion, No non-tender, No normal inspection, No pedal edema, No calf tenderness, No normal capillary refill, No pelvis stable , No calf tenderness, No inflammation, No pedal edema, No slow capillary refill , No swelling, No other, No abrasion, No clubbing, No cyanosis, No ecchymosis, No laceration, No no lower extremity edema bilateral, No significant edema, No tenderness, No wound Neurologic/Psychiatric: alert, normal mood/affect, oriented x 3 Skin: normal color, warm/dry; No cyanosis, No cool, No diaphoresis, No damp, No ecchymosis, No jaundice, No mottled, No pallor, No rash, No tattoos/piercings , No ulcerations, No rash on exposed areas, No ulcerations on exposed areas, No other Results/Procedures: Labs Laboratory Tests 12/04/17 23:45: Stool Occult Blood Immunoassay NEGATIVE 12/05/17 03:25: White Blood Count 15.5H, Red Blood Count 2.55L, Hemoglobin 8.1L, Hematocrit 24L , Mean Corpuscular Volume 95, Mean Corpuscular Hemoglobin 32, Mean Corpuscular Hemoglobin Concent 34, Red Cell Distribution Width 15.3H, Platelet Count 222, Mean Platelet Volume 10.4, Neutrophils (%) (Auto) 88H, Lymphocytes (%) (Auto) 4L , Monocytes (%) (Auto) 7, Eosinophils (%) (Auto) 0, Basophils (%) (Auto) 0, Neutrophils # (Auto) 13.7H, Lymphocytes # (Auto) 0.7L, Monocytes # (Auto) 1.1H, Eosinophils # (Auto) 0.0, Basophils # (Auto) 0.0, Sodium Level 141, Potassium Level 4.1, Chloride Level 116H, Carbon Dioxide Level 16L, Anion Gap 9, Blood Urea Nitrogen 26H, Creatinine 1.24, Estimat Glomerular Filtration Rate 58, BUN/ Creatinine Ratio 21, Glucose Level 122H, Calcium Level 8.3L, Phosphorus Level 2.5, Magnesium Level 2.4 12/05/17 06:40: Lactic Acid Level 0.97 12/05/17 07:46: Blood Gas Puncture Site RT RAD, Blood Gas Patient Temperature 97.4, Arterial Blood pH 7.42, Arterial Blood Partial Pressure CO2 28L, Arterial Blood Partial Pressure O2 99H, Arterial Blood HCO3 18L, Arterial Blood Total CO2 19.1L, Arterial Blood Oxygen Saturation 98, Arterial Blood Base Excess -5.5L, Edison Test YES-POS, Blood Gas Ventilator Setting NO, Blood Gas Inspired Oxygen 14L 60% Microbiology 12/01/17 Blood Culture - Preliminary, Resulted No growth 12/02/17 MRSA Screen - Final, Complete MRSA not isolated 12/01/17 Urine Culture - Final, Complete NO GROWTH A/P: Assessment/Dx: Sepsis, Anemia, Past CVA, 2012 Shortness of breath, PAF, currently sinus rhythm. Severe 3 vessel CAD, Mild to moderate , Second degree AV block. Currently sinus rhythm with 1-1 conduction Skin erosion at the site of implantable loop recorder, ILR removed. Acute kidney injury Plan: Severe sepsis with respiratory distress., likely source is hospital acquired pneumonia. Broad-spectrum antibiotics, sepsis protocol. Skin erosion at the site of implantable loop recorder: ILR removed. Non-STEMI: On aggressive medical therapy. Troponin decreased significantly however still abnormal. Continue dual antiplatelet therapy. Severe CAD with severe stenosis of the mid LAD and involves the ostium of the large D1, severe stenosis if the OM which after the stenosis divides up into two large branches, Severe pRCA stenosis. Was referred to [facility] but patient was found to be an inappropriate candidate for surgical revascularization and high risk for PCI. Also the was not in favor of cardiac surgery. options were medical therapy alone vs palliative care. I discussed at length with the patient and may consider high risk multivessel PCI in 2-3 weeks after resolution of sepsis/ pulmonary issues and patient is discharged and follows me as an outpatient. We may have to stage the procedures due to his previous history of acute kidney injury. Also we will have to wait for sepsis resolution. Discussed with Dr. Dorado. PAF -continue Eliquis and rate control. Remote CVA - stroke was in 2012. Residual abnormalities present. Mild/Moderate present. mean gradient 17mmhg. Monitor clinically. Transient symptomatic Second degree AV block with hypotension. Sinus rhythm with 1-1 conduction throughout this admission. Complicated patient with multiple medical issues. Thank you for your consultation. Please call me if you have any questions. Alexis Lancaster MD, FACP, FACC, FSCAI, FHRS, CCDS Interventional Cardiology Cardiac Electrophysiology Vascular Medicine and Endovascular Interventions Focused Exam Lactate Level 12/05/17 06:40: Lactic Acid Level 0.97 Time of Focused Exam: 00:01 Genesis LANCASTER MD Dec 05, 2017 2:17 pm
--- NOTE | 2017-12-05 14:30 | Speech Therapy Daily Note ---
Speech Daily Progress Note Subjective Date Seen by Provider: Dec 05, 2017 Time Seen by Provider: 09:00 Pt in bed. Pleasant and cooperative. Pain Numeric Pain Scale: 0-No Pain Objective Pt's speech has improved since yesterday. Still somewhat non-fluent. Instructed pt to reduce his rate of speech to help facilitate more fluent speech. He was able to perform this with sentence length material with min assist. Provided a handout of words with emphasize the "k" and "g" sounds in words to increase base of tongue function. Demonstrated how to execute exercises with pt providing a return demo. Pt was stimulable for this activity. Assessment Assessment Current Status: Good Progress Treatment Plan Continue Plan of Care Speech Short Term Goals Short Term Goals Short Term Goals Pt will be educated in compensatory techniques to increase speech fluency. Pt will demonstrate increased fluency at the phrase level with min assist. Time Frame-ST week Speech Stunt Driver Goals Assisted Goals Pt will exhibit increased fluent speech with at least 85% intelligibility to listeners. Time Frame: 1-2 weeks Speech-Plan Patient/Family Goals Patient/Family Goals: to talk better Treatment Plan Speech Therapy Treatment Plan: Continue Plan of Care pt very cooperative in [facility]. Frequency: 4 times per week Estimated Hrs Per Day: .5 hour per day Rehab Potential: Good Safety Risks/Education Teaching Recipient: Patient Teaching Methods: Demonstration, Handout, Discussion Response to Teaching: Verbalize Understanding, Return Demonstration Time Speech Therapy Time In: 09:00 Speech Therapy Time Out: 09:30 Total Billed Time: 30 Billed Treatment Time 1, SLCELESTE DANIELLEDEBORAHTheo FIORE Dec 05, 2017 14:30
[2017-12-05] MEDS: ROSUVASTATIN 20 MG (CRESTOR) TABLET PO SCH (21:39)
[2017-12-06] VITALS (28 sets, daily range): BP systolic 101–142; BP diastolic 62–98
[2017-12-06] MEDS: methylPREDNISolone 40 MG/ML (Solu-MEDROL) VIAL IV SCH ×4 (00:58→17:12)
[2017-12-06] MEDS: RT-ALBUTEROL/IPRATROPIUM 3 ML (DUONEB) VIAL INH SCH ×6 (02:50→22:25)
[2017-12-06 03:26] LABS: BASOPHILS % (AUTO) 0 % (0-10); EOSINOPHILS % (AUTO) 0 % (0-10); HEMATOCRIT 26 % (40-54); HEMOGLOBIN 8.3 G/DL (13.3-17.7); LYMPHOCYTES # (AUTO) 0.6 X 10^3 (1.0-4.0); LYMPHOCYTES % (AUTO) 5 % (12-44); MEAN CORPUSCULAR HEMOGLOBIN 32 PG (25-34); MEAN CORPUSCULAR HGB CONC 33 G/DL (32-36); MEAN CORPUSCULAR VOLUME 97 FL (80-99); MEAN PLATELET VOLUME 10.4 FL (7.4-10.4); MONOCYTES % (AUTO) 7 % (0-12); NEUTROPHILS # (AUTO) 12.4 X 10^3 (1.8-7.8); NEUTROPHILS % (AUTO) 88 % (42-75); PLATELET COUNT 230 10^3/uL (130-400); RED BLOOD COUNT 2.63 10^6/uL (4.35-5.85); RED CELL DISTRIBUTION WIDTH 15.9 % (10.0-14.5)
[2017-12-06 03:46] LABS: BUN/CREATININE RATIO 22; CALCIUM 8.1 MG/DL (8.5-10.1); CARBON DIOXIDE 18 MMOL/L (21-32); CHLORIDE 114 MMOL/L (98-107); CREATININE SERUM 1.16 MG/DL (0.60-1.30); GFR ESTIMATED > 60; GLUCOSE 132 MG/DL (70-105); MAGNESIUM 2.6 MG/DL (1.8-2.4); PHOSPHORUS 2.7 MG/DL (2.3-4.7); POTASSIUM 4.3 MMOL/L (3.6-5.0); SODIUM 139 MMOL/L (135-145)
[2017-12-06] MEDS: 1/2 NS W/KCL 20 MEQ/L 1,000 ML IV SCH ×2 (05:30→18:21)
[2017-12-06] MEDS: VASOPRESSIN INJECTION 20 UNIT in NS (IVPB) 100 ML IV SCH ×2 (06:43→15:31)
[2017-12-06] MEDS: MAGNESIUM 1 GM/100 ML IVPB 100 ML IV SCH (06:44)
[2017-12-06] MEDS: CATHETER FLUSH 10 ML SYR IV SCH ×3 (06:44→21:51)
[2017-12-06] MEDS: KCL 20 MEQ TAB (K-DUR) PO SCH (06:44)
[2017-12-06] MEDS: POTASSIUM CL 10MEQ/50ML IVPB 50 ML IV SCH (06:44)
--- NOTE | 2017-12-06 07:36 | Pulmonary Progress Note ---
Subjective Time Seen by a Provider: 08:08 Subjective/Events-last exam pt is on BiPAP currently and precedex gtt. Sepsis Event Evaluation Height, Weight, BMI Height: 5'8.00" Weight: 215lbs. 0.0oz. [id number]; 28.4 BMI Method:Stated Focused Exam Lactate Level 12/05/17 06:40: Lactic Acid Level 0.97 Time of Focused Exam: 00:01 Exam Exam Vital Signs Date Time Temp Pulse Resp B/P (MAP) Pulse Ox O2 Delivery O2 Flow Rate FiO2 12/06/17 06:11 80 26 98 30.00 12/06/17 06:00 24 122/84 (97) NIV Bilevel 30.00 12/06/17 05:00 80 25 123/76 (92) NIV Bilevel 30.00 12/06/17 04:30 69 14 97 30.00 12/06/17 04:00 NIV Bilevel 30 12/06/17 04:00 70 15 104/69 (81) 96 NIV Bilevel 30.00 12/06/17 03:53 97.0 12/06/17 03:00 76 19 112/67 (82) 98 NIV Bilevel 30.00 12/06/17 02:51 73 22 97 30.00 12/06/17 02:00 70 17 111/67 (82) 98 NIV Bilevel 30.00 12/06/17 01:00 79 12/06/17 01:00 79 17 129/76 (93) 97 NIV Bilevel 30.00 12/06/17 00:53 81 22 97 30.00 12/06/17 00:00 Vapotherm 10.00 40 12/06/17 00:00 80 28 128/95 (106) 97 NIV Bilevel 30.00 12/05/17 23:43 99.1 12/05/17 23:00 80 15 121/67 (85) 96 NIV Bilevel 30.00 12/05/17 22:00 86 22 96 30.00 12/05/17 22:00 91 32 99/57 (71) 95 NIV Bilevel 30.00 12/05/17 21:00 87 32 117/66 (83) 95 Vapotherm 40.00 10.00 12/05/17 20:00 92 29 128/77 (94) 95 Vapotherm 40.00 10.00 12/05/17 20:00 Vapotherm 10.00 40 12/05/17 19:52 97.2 12/05/17 19:00 78 12/05/17 19:00 77 22 113/68 (83) 95 Vapotherm 40.00 10.00 12/05/17 18:00 71 15 113/68 (83) 95 Vapotherm 40.00 10.00 12/05/17 17:00 75 15 102/67 (79) 90 Vapotherm 40.00 10.00 12/05/17 16:00 97.6 77 16 98/70 (79) 94 Vapotherm 40.00 10.00 12/05/17 15:42 97 Vapotherm 14.00 40 12/05/17 15:22 Vapotherm 10.00 40 12/05/17 15:00 75 17 105/67 (80) 96 Vapotherm 40.00 14.00 12/05/17 14:00 79 21 98/75 (83) 96 Vapotherm 40.00 14.00 12/05/17 13:00 81 17 105/74 (84) 95 Vapotherm 40.00 14.00 12/05/17 13:00 81 12/05/17 12:31 96.7 12/05/17 12:00 81 18 103/74 (84) 96 Vapotherm 40.00 14.00 12/05/17 11:10 97 Vapotherm 14.00 60 12/05/17 11:00 Vapotherm 14.00 40 12/05/17 11:00 97.9 12/05/17 11:00 74 12 105/72 (83) 98 Vapotherm 40.00 14.00 12/05/17 10:00 78 28 108/67 (81) 96 Vapotherm 60.00 14.00 12/05/17 09:00 75 16 106/72 (83) 99 Vapotherm 60.00 14.00 12/05/17 09:00 Vapotherm 14.00 60 12/05/17 08:00 78 12 99/74 (82) 95 Vapotherm 60.00 14.00 12/05/17 08:00 97.6 I & O 12/06/17 07:00 Intake Total 1832 ml Output Total 975 ml Balance 857 ml Height & Weight Height: 5'8.00" Weight: 215lbs. 0.0oz. [id number]; 28.4 BMI Method:Stated General Appearance: WD/WN, Mild Distress HEENT: PERRL/EOMI, Pharynx Normal Neck: Full Range of Motion, Supple Respiratory: Chest Non Tender, Lungs Clear, Normal Breath Sounds, No Accessory Muscle Use Cardiovascular: Regular Rate, Rhythm Capillary Refill: Less Than 3 Seconds Peripheral Pulses: 2+ Dorsalis Pedis (R), 2+ Left Dors-Pedis (L) Gastrointestinal: normal bowel sounds, non tender, soft Extremity: Normal Capillary Refill, Non Tender, No Calf Tenderness, No Pedal Edema Neurologic/Psychiatric: No Motor/Sensory Deficits, Normal Mood/Affect Skin: Warm/Dry Lymphatic: No Adenopathy Results Lab Laboratory Tests 12/05/17 03:25 12/06/17 03:01 Assessment/Plan Assessment/Plan Acute on chronic respiratory failure -BiPAP- Vapotherm during the day, oxygen -D/C PRECEDEX, 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 -Cardiology following Severe sepsis with UTI and pneumonia -Continue Cefepime, and D/C vanco -Await clancy cultures Anemia --Stable -Occult stool -Monitor -PT is on plavix and Eliquis MEtabolic acidosis -IVF Hx of CVA with slurred speech at baseline NEO MCCRACKEN DO Dec 06, 2017 7:36 am
[2017-12-06] MEDS ORDERED: risperiDONE 1 MG (RisperDAL) TAB PO NR (07:45)
--- NOTE | 2017-12-06 08:02 | Cardiology Progress Note ---
Cardiology SOAP Progress Note Subjective: still feeling unwell. shortness of breath. Objective: I&O/Vital Signs 12/06/17 12/06/17 12/06/17 12/06/17 06:00 06:11 07:00 08:00 Pulse 80 80 84 Resp 24 26 11 23 B/P (MAP) 122/84 (97) 105/67 (80) 106/72 (83) Pulse Ox 98 98 94 O2 Delivery NIV Bilevel Vapotherm Vapotherm O2 Flow Rate 30.00 30.00 40.00 40.00 10.00 10.00 12/06/17 12/06/17 12/06/17 12/06/17 08:00 08:10 08:20 08:20 Temp 98.2 Pulse 78 Resp 20 Pulse Ox 98 92 O2 Delivery Vapotherm Vapotherm O2 Flow Rate 30.00 40.00 10.00 10.00 FiO2 40 12/06/17 12/06/17 12/06/17 12/06/17 08:45 09:00 09:56 10:00 Pulse 80 107 Resp 23 23 B/P (MAP) 129/72 (91) 110/69 (83) Pulse Ox 94 93 90 O2 Delivery Vapotherm Vapotherm Vapotherm Vapotherm O2 Flow Rate 10.00 40.00 10.00 40.00 10.00 10.00 FiO2 40 40 12/06/17 12/06/17 12/06/17 12/06/17 11:00 11:49 11:50 13:00 Temp 98.9 Pulse 101 100 Resp 19 17 B/P (MAP) 112/65 (81) 129/73 (91) Pulse Ox 92 92 91 O2 Delivery Vapotherm Vapotherm Vapotherm O2 Flow Rate 40.00 10.00 40.00 10.00 10.00 FiO2 40 12/06/17 12/06/17 12/06/17 12/06/17 13:00 13:57 14:00 15:00 Pulse 102 101 102 Resp 17 16 B/P (MAP) 124/92 (103) 130/98 (109) Pulse Ox 91 94 92 O2 Delivery Vapotherm Vapotherm Vapotherm O2 Flow Rate 10.00 40.00 40.00 10.00 10.00 FiO2 40 12/06/17 12/06/17 12/06/17 12/06/17 16:00 16:32 16:36 17:00 Temp 99.0 Pulse 103 109 Resp 17 21 B/P (MAP) 128/85 (99) 130/75 (93) Pulse Ox 94 96 93 O2 Delivery Vapotherm Vapotherm Vapotherm O2 Flow Rate 40.00 10.00 40.00 10.00 10.00 FiO2 40 12/06/17 00:00 Intake Total 372 ml Output Total 675 ml Balance -303 ml Weight (Pounds): 216 Weight (Ounces): 3.0 Weight (Calculated Kilograms): [id number] Constitutional: appears stated age, AAO x 3, apparent distress, well-developed , well-nourished Respiratory: accessory muscle use, respiratory distress; No chest tender, No chest expansion is symmetric; chest is bilaterally symmetric; No lungs clear to percussion, No crackles, No rhonchi, No rales, No stridor; wheezing; No pleural rub; other (mild wheezing.) Cardiovascular: regular rate-rhythm, S1 and S2, systolic murmur, other (skin erosion at the site of implantable loop recorder.) Gastrointestional: No tender, No soft, No round, No distended, No pulsatile mass, No organomegaly, No guarding, No rebound, No tenderness, No hernia, No mass, No audible bowel sounds, No abnormal bowel sounds, No abdominal bruits, No spleenomegaly, No other Genital/Rectal: No tenderness; other (Ecchymoses all over scrotum and penis) Extremities: No normal range of motion, No non-tender, No normal inspection, No pedal edema, No calf tenderness, No normal capillary refill, No pelvis stable , No calf tenderness, No inflammation, No pedal edema, No slow capillary refill , No swelling, No other, No abrasion, No clubbing, No cyanosis, No ecchymosis, No laceration, No no lower extremity edema bilateral, No significant edema, No tenderness, No wound Neurologic/Psychiatric: alert, normal mood/affect, oriented x 3 Skin: normal color, warm/dry; No cyanosis, No cool, No diaphoresis, No damp, No ecchymosis, No jaundice, No mottled, No pallor, No rash, No tattoos/piercings , No ulcerations, No rash on exposed areas, No ulcerations on exposed areas, No other Results/Procedures: Labs Laboratory Tests 12/06/17 03:01: White Blood Count 14.0H, Red Blood Count 2.63L, Hemoglobin 8.3L, Hematocrit 26L , Mean Corpuscular Volume 97, Mean Corpuscular Hemoglobin 32, Mean Corpuscular Hemoglobin Concent 33, Red Cell Distribution Width 15.9H, Platelet Count 230, Mean Platelet Volume 10.4, Neutrophils (%) (Auto) 88H, Lymphocytes (%) (Auto) 5L , Monocytes (%) (Auto) 7, Eosinophils (%) (Auto) 0, Basophils (%) (Auto) 0, Neutrophils # (Auto) 12.4H, Lymphocytes # (Auto) 0.6L, Monocytes # (Auto) 1.0, Eosinophils # (Auto) 0.0, Basophils # (Auto) 0.0, Sodium Level 139, Potassium Level 4.3, Chloride Level 114H, Carbon Dioxide Level 18L, Anion Gap 7, Blood Urea Nitrogen 26H, Creatinine 1.16, Estimat Glomerular Filtration Rate > 60, BUN /Creatinine Ratio 22, Glucose Level 132H, Calcium Level 8.1L, Phosphorus Level 2.7, Magnesium Level 2.6H Microbiology 12/01/17 Blood Culture - Preliminary, Resulted No growth 12/02/17 MRSA Screen - Final, Complete MRSA not isolated 12/01/17 Urine Culture - Final, Complete NO GROWTH A/P: Assessment/Dx: Sepsis, Anemia, Past CVA, 2012 Shortness of breath, PAF, currently sinus rhythm. Severe 3 vessel CAD, Mild to moderate , Second degree AV block. Currently sinus rhythm with 1-1 conduction Skin erosion at the site of implantable loop recorder, ILR removed. Acute kidney injury Plan: Severe sepsis with respiratory distress., likely source is hospital acquired pneumonia. Broad-spectrum antibiotics, sepsis protocol. Skin erosion at the site of implantable loop recorder: ILR removed. Non-STEMI: On aggressive medical therapy. Troponin decreased significantly however still abnormal. Continue dual antiplatelet therapy. Severe CAD with severe stenosis of the mid LAD and involves the ostium of the large D1, severe stenosis if the OM which after the stenosis divides up into two large branches, Severe pRCA stenosis. Was referred to [facility] but patient was found to be an inappropriate candidate for surgical revascularization and high risk for PCI. Also the was not in favor of cardiac surgery. options were medical therapy alone vs palliative care. I discussed at length with the patient and may consider high risk multivessel PCI in 2-3 weeks after resolution of sepsis/ pulmonary issues and patient is discharged and follows me as an outpatient. We may have to stage the procedures due to his previous history of acute kidney injury. Also we will have to wait for sepsis resolution. Discussed with Dr. Dorado. PAF -continue Eliquis and rate control. Remote CVA - stroke was in 2012. Residual abnormalities present. Mild/Moderate present. mean gradient 17mmhg. Monitor clinically. Transient symptomatic Second degree AV block with hypotension. Sinus rhythm with 1-1 conduction throughout this admission. Complicated patient with multiple medical issues. Thank you for your consultation. Please call me if you have any questions. Alexis Lancaster MD, FACP, FACC, FSCAI, FHRS, CCDS Interventional Cardiology Cardiac Electrophysiology Vascular Medicine and Endovascular Interventions Focused Exam Lactate Level 12/05/17 06:40: Lactic Acid Level 0.97 Time of Focused Exam: 00:01 Genesis LANCASTER MD Dec 06, 2017 8:02 am
--- NOTE | 2017-12-06 08:30 | Diagnostic Imaging Report ---
INDICATION: Dyspnea. TECHNIQUE: Single view chest 3:11 AM. CORRELATION STUDY: 12/05/2017 FINDINGS: Unchanged asymmetrical elevation of the right diaphragm. Overall lung volumes. No significant infiltrate. Severity of cardiac enlargement and prominent mediastinum appear stable. Vascularity overall stable. IMPRESSION: 1. Generally stable chest without adverse interval change. Dictated by: Dictated on workstation # [id number]
[2017-12-06] MEDS: PANTOPRAZOLE 40 MG (PROTONIX) VIAL IV SCH (08:41)
[2017-12-06] MEDS: DOCUSATE SODIUM 100 MG (COLACE) CAP PO SCH ×2 (08:41→22:02)
[2017-12-06] MEDS: CLOPIDOGREL 75 MG (PLAVIX) TABLET PO SCH (08:41)
[2017-12-06] MEDS: CEFEPIME 2 GM/NS 50 ML IVPB IV SCH ×4 (08:41→22:01)
[2017-12-06] MEDS: ENOXAPARIN 80 MG/0.8 ML (LOVENOX) SYR SC SCH ×2 (08:41→22:01)
--- NOTE | 2017-12-06 10:59 | Progress Note ---
Subjective Date Seen by a Provider: Dec 06, 2017 Time Seen by a Provider: 11:00 Subjective/Events-last exam PT REPORTS THAT HE FEELS AWFUL TODAY - HE REPORTS SEVERE ABDOMINAL DISCOMFORT. HIS SISTER IS IN THE ROOM TODAY - SHE REPORTS THAT SINCE SHE HAS BEEN WITH HIM THIS MORNING, HE HAS BEEN COMPLAINING OF PAIN IN HIS STOMACH - WORSE ON THE RIGHT SIDE. HE ALSO HAS BEEN MORE SHORT OF BREATH THIS MORNING. Review of Systems General: No Chills; Fatigue, Malaise HEENT: No Head Aches, No Dysphasia, No Sinus Congestion Pulmonary: Dyspnea, Cough Cardiovascular: Edema; No: Chest Pain Gastrointestinal: Abdominal Pain, Other (BOWEL MOVEMENT THIS MORNING.); No: Nausea, Vomiting Genitourinary: Other ([place] IN PLACE) Musculoskeletal: No: arm pain, back pain Neurological: Weakness, Change in speech (CHRONIC); No: Confusion Focused Exam Lactate Level 12/05/17 06:40: Lactic Acid Level 0.97 Time of Focused Exam: 00:01 Objective Exam Last Set of Vital Signs Vital Signs Date Time Temp Pulse Resp B/P (MAP) Pulse Ox O2 Delivery O2 Flow Rate FiO2 12/06/17 09:56 93 Vapotherm 10.00 40 12/06/17 08:10 78 20 12/06/17 08:00 98.2 12/06/17 08:00 106/72 (83) Capillary Refill : Less Than 3 Seconds I&O Intake and Output 12/06/17 00:00 Intake Total 1732 ml Output Total 1175 ml Balance 557 ml Intake Oral 422 ml IV Total 1310 ml Output Urine Total 1175 ml General: Alert, Oriented X3, Cooperative HEENT: Atraumatic, PERRLA Neck: Supple Lungs: Other (CLEAR, DECREASED IN BASES) Heart: Regular Rate Abdomen: Other (HIGH PITCHED BOWEL SOUNDS WITH TENDERNESS TO PALPATION RIGHT LOWER ABDOMEN, BRUISING RIGHT FLANK) Extremities: Other (EDEMA BILATERAL LOWER EXTREMITIES TO MID ABDOMEN) Skin: No Rashes Neuro: Other (IMPROVED SPEECH) Psych/Mental Status: Mental Status NL, Mood NL Results Lab Laboratory Tests 12/06/17 03:01: White Blood Count 14.0H, Red Blood Count 2.63L, Hemoglobin 8.3L, Hematocrit 26L , Mean Corpuscular Volume 97, Mean Corpuscular Hemoglobin 32, Mean Corpuscular Hemoglobin Concent 33, Red Cell Distribution Width 15.9H, Platelet Count 230, Mean Platelet Volume 10.4, Neutrophils (%) (Auto) 88H, Lymphocytes (%) (Auto) 5L , Monocytes (%) (Auto) 7, Eosinophils (%) (Auto) 0, Basophils (%) (Auto) 0, Neutrophils # (Auto) 12.4H, Lymphocytes # (Auto) 0.6L, Monocytes # (Auto) 1.0, Eosinophils # (Auto) 0.0, Basophils # (Auto) 0.0, Sodium Level 139, Potassium Level 4.3, Chloride Level 114H, Carbon Dioxide Level 18L, Anion Gap 7, Blood Urea Nitrogen 26H, Creatinine 1.16, Estimat Glomerular Filtration Rate > 60, BUN /Creatinine Ratio 22, Glucose Level 132H, Calcium Level 8.1L, Phosphorus Level 2.7, Magnesium Level 2.6H Microbiology 12/01/17 Blood Culture - Preliminary, Resulted No growth 12/02/17 MRSA Screen - Final, Complete MRSA not isolated 12/01/17 Urine Culture - Final, Complete NO GROWTH Assessment/Plan Assessment/Plan Assess & Plan/Chief Complaint SEPSIS PNEUMONIA CORONARY ARTERY DISEASE RECENT NSTEMI HYPERTENSION ATRIAL FIBRILLATION HX OF STROKE WITH RESIDUAL ELEVATED PSA ANEMIA COPD TOBACCOISM EDEMA SEPSIS DUE TO PNEUMONIA AND COPD DUE TO HX OF TOBACCOISM- PT ON HOSPITAL ACQUIRED PNEUMONIA PROTOCOL - CONTINUE WITH CURRENT MANAGEMENT. - MONITOR SERIAL CHEST XRAYS. CHEST XRAY UNCHANGED FROM YESTERDAY - HOWEVER, PT HAS INCREASED OXYGEN REQUIREMENT - YESTERDAY WAS ON NASAL CANNULA, LAST NIGHT BACK ON BIPAP AND TODAY ON VAPOTHERM. PT ON STEROID THERAPY, CONTINUE WITH BREATHING TREATMENTS, WEAN VAPOTHERM ABLE, WILL NEED TO START WEANING STEROIDS WELL. CORONARY ARTERY DISEASE AND RECENT NSTEMI - DUE TO MULTIVESSEL DISEASE - PT NOT A SURGICAL CANDIDATE PER [facility] - DISCUSSED WITH DR. SANTANA - HE REPORTS THAT HE COULD DO STAGED INTERVENTION WITH FIRST APPROACH LIKELY THE RCA TO HELP WITH IMPROVED CORONARY FLOW. DR. SANTANA STATES THAT DEPENDING ON IF NORA OPTS FOR PALLIATIVE CARE VERSUS PROGRESSIVE TREATMENT WE WILL THEN DECIDE ON THE HEART CATHETERIZATION AND POSSIBLE STENTING ONCE HE IS BETTER FROM HIS CURRENT ILLNESS. HYPERTENSION - CONTINUE TO MONITOR PRESSURE - ATRIAL FIBRILLATION - RATE CONTROLLED ON CURRENT REGIMEN -DR. SANTANA REMOVED MONITOR. HX OF STROKE WITH RESIDUAL WEAKNESS AND DYSARTHRIA. PHYSICAL THERAPY AND SPEECH THERAPY ORDERED. ELEVATED PSA - INVESTIGATION PENDING. ANEMIA - STABILIZED ABDOMINAL PAIN - CT OF ABDOMEN AND PELVIS TODAY EDEMA - DOSE OF LASIX THIS MORNING AND THEN ORDERED FOR DAILY - HE HAS GAINED 20 # IN THE PAST WEEK. PT HAS POOR OVERALL PROGNOSIS WITH HIS CARDIAC DISEASE, DEBILITY FROM STROKE, AND HIS PULMONARY DISEASE WITH ACUTE INFECTION. HOWEVER HIS FAMILY WISHES TO PROCEED WITH STAGED CARDIAC INTERVENTIONS ONCE HE IS HEALTHY ENOUGH TO UNDERGO HEART CATHETERIZATION. Clinical Quality Measures Admission Status Admission Dx SEPSIS PNEUMONIA CORONARY ARTERY DISEASE RECENT NSTEMI HYPERTENSION ATRIAL FIBRILLATION HX OF STROKE WITH RESIDUAL ELEVATED PSA SEPSIS DUE TO PNEUMONIA - PT ON HOSPITAL ACQUIRED PNEUMONIA PROTOCOL - CONTINUE WITH CURRENT MANAGEMENT. - MONITOR SERIAL CHEST XRAYS. CORONARY ARTERY DISEASE AND RECENT NSTEMI - DUE TO MULTIVESSEL DISEASE - PT NOT A SURGICAL CANDIDATE PER [facility] - WILL CONTINUE WITH MEDICAL MANAGEMENT. HYPERTENSION - CONTINUE TO MONITOR PRESSURE - ATRIAL FIBRILLATION - RATE CONTROLLED ON CURRENT REGIMEN - ELIQUIS FOR PROPHYLAXIS HX OF STROKE WITH RESIDUAL ELEVATED PSA - INVESTIGATION PENDING DVT/VTE Risk/Contraindication: Risk Factor Score Per Nursin RFS Level Per Nursing on Admit: 4+=Very High JACQUELYN REAL MD Dec 06, 2017 10:59
[2017-12-06] MEDS ORDERED: NS 250 ML (IVPB) BAG IV ONE (11:45)
[2017-12-06] MEDS ORDERED: FUROSEMIDE 40 MG/4 ML INJ (LASIX) IVP NR (11:45)
[2017-12-06] MEDS ORDERED: IOHEXOL 350 MG/ML 100 ML (OMNIPAQUE 350) VIAL IV ONE (11:45)
[2017-12-06] MEDS ORDERED: RECEIVED CONTRAST (Hold Metformin) IV SCH (11:45)
--- NOTE | 2017-12-06 13:52 | Speech Therapy Daily Note ---
Speech Daily Progress Note Subjective Date Seen by Provider: Dec 06, 2017 Time Seen by Provider: 13:30 Pt in bed. Alert and cooperative. Pain Numeric Pain Scale: 0-No Pain Objective Pt's speech not as good today as yesterday. Re-instructed pt to use decrease rate to increase speech intelligibility. Pt went over the words on his handout. Pt appeared to be having difficulty reading the words which he did appear to have trouble doing yesterday. Assessment Assessment Current Status: Fair Progress Treatment Plan Continue Plan of Care Speech Short Term Goals Short Term Goals Short Term Goals Pt will be educated in compensatory techniques to increase speech fluency. Pt will demonstrate increased fluency at the phrase level with min assist. Time Frame-ST week Speech Labor Delivery Rn Goals Alf Goals Pt will exhibit increased fluent speech with at least 85% intelligibility to listeners. Time Frame: 1-2 weeks Speech-Plan Patient/Family Goals Patient/Family Goals: to talk better. Treatment Plan Speech Therapy Treatment Plan: Continue Plan of Care Pt very cooperative and motivated to improve. Frequency: 4 times per week Estimated Hrs Per Day: .5 hour per day Rehab Potential: Good Pt/Family Agrees to Plan: Yes Safety Risks/Education Teaching Recipient: Patient Teaching Methods: Discussion Response to Teaching: Verbalize Understanding Time Speech Therapy Time In: 13:30 Speech Therapy Time Out: 13:45 Total Billed Time: 15 Billed Treatment Time 1, SAGE Beal Dec 06, 2017 13:52
--- NOTE | 2017-12-06 14:21 | Diagnostic Imaging Report ---
PROCEDURE: CT of the abdomen with and without contrast and CT of the pelvis with contrast. TECHNIQUE: Precontrast acquisitions were acquired through the abdomen. Multiple contiguous axial images were obtained through the abdomen and pelvis after administration of intravenous contrast. INDICATION: Abdominal pain. Suspect ileus. COMPARISON: CT from 11/07/2009. FINDINGS: The lung bases demonstrate small bilateral pleural effusions with associated atelectasis. The heart is normal in size. There is no pericardial effusion. No focal hepatic lesions are seen. The liver has an unusual contour with little to no inferior right lower lobe, but does appear stable since 2009. The pancreas appears normal. The spleen is normal. There is a small splenule present. The adrenal glands are unremarkable. There is mild renal cortical thinning. No obstructing renal calculi are seen. There is mild prominence of the left ureter. There are mildly dilated loops of small bowel in the right lower quadrant of the abdomen, measuring up to 3.7 cm in diameter. There appear to be areas of transition points and focal narrowing (image 22 series 6). There is however a moderate amount of stool seen in the ascending colon and cecum. There is extensive diverticulosis of the distal descending colon and the sigmoid colon. No diverticulitis is seen. Coils from prior hernia mesh repair are seen in the left lower abdomen. There is a small amount of free fluid and fat stranding in the right lower quadrant of the abdomen which appears to be retroperitoneal and in the right pelvis. Some of this appears dense and may represent blood products (image 95 series 4). The urinary bladder is incompletely scanned, appears decompressed, with thickening of the bladder wall. There are two densities, suspected bladder calculi within the urinary bladder measuring 2 cm in diameter. There is moderate subcutaneous fluid at the abdomen bilaterally, and moderate deep fascial edema about the bilateral hips. Advanced degenerative changes are seen in the spine. There are moderate degenerative changes in the bilateral hips. IMPRESSION: 1. Mildly dilated loops of small bowel in the right lower quadrant of the abdomen. There is moderate stool in the ascending colon and cecum. This may be due to ileus, however given the focal transition point, a low-grade partial small bowel obstruction is not excluded. 2. Small amount of fluid in the right lower quadrant and right pelvis, which appears retroperitoneal and may represent blood products. Although this may be a small retroperitoneal hematoma, particularly in the setting of prior catheterization. Please correlate with patient history. 3. Extensive diverticulosis of the distal colon. 4. Incomplete visualization of the urinary bladder. A Johnson catheter and two large bladder calculi are seen. Dictated by: Dictated on workstation # [id number]
--- NOTE | 2017-12-06 17:01 | Diagnostic Imaging Report ---
CLINICAL INDICATION: NG tube placement. EXAM: Portable chest x-ray, upright view. COMPARISON: Portable chest x-ray, upright view dated 12/06/2017 at 0311 hours. FINDINGS: There is interval placement of a nasogastric tube with its distal portion looped within the mid to distal body of the stomach. The tip is just to the right of midline and may be within the antrum or pylorus. There is stable appearance of the chest with similar asymmetry of the hemidiaphragms with the right side slightly elevated. Cardiac silhouette and pulmonary vasculature are stable with no significant interval abnormality. The remainder of this exam shows no significant interval change compared to the prior study of comparison. IMPRESSION: 1: Interval placement of nasogastric tube in good position. 2: The remainder of this exam shows no significant interval change compared to the prior study of comparison. Dictated by: Dictated on workstation # [id number]
[2017-12-06] MEDS: risperiDONE 0.25 MG (RisperDAL) TAB PO SCH ×2 (17:12→22:01)
--- NOTE | 2017-12-06 20:19 | CONSULTATION REPORT ---
DATE OF SERVICE: 12/06/2017 ATTENDING PRIMARY CARE PHYSICIAN: Dr. Dorado. HISTORY OF PRESENT ILLNESS: The patient is a 67-year-old male who was in a frail condition. He has an extensive history of coronary artery disease and did have a non-ST segment elevation myocardial infarction and cardiac catheterization recently at [facility]. The catheterization also did show multivessel disease, which was not amenable to any therapeutic procedures. He was eventually referred to [facility] for further evaluation as well as possible coronary artery bypass grafting; however, the physicians at deemed that he was not in good enough physical capacity to sustain an open bypass surgery and was discharged home. At home, he developed increased shortness of breath and was brought back to [facility]. He was found to have pneumonia and sepsis. Discussions were initially made for hospice; however, recently, the patient and family had a discussion and have decided on a full code at this time. In the past day, he has developed right lower abdominal quadrant pain as well as mild abdominal distention; however, no nausea, no vomiting. He did have several small bowel movements yesterday. A CT scan was performed, which did show a few dilated loops of small bowel in the right lower abdominal quadrant as well as a questionable transition point. There is a considerable amount of stool in the ascending colon. In the distal colon and rectum, there is gas present. This appears to be consistent with an ileus versus a partial small-bowel obstruction. PAST MEDICAL HISTORY: Coronary artery disease, atrial fibrillation, hypercholesterolemia, hypertension, history of stroke, benign prostatic hypertrophy. PAST SURGICAL HISTORY: Bilateral spermatocelectomy, laparoscopic left inguinal hernia repair with mesh. ALLERGIES: No known drug allergies. MEDICATIONS: Aspirin 81 mg daily, Plavix 75 mg daily, vitamin D3 5000 units daily, losartan 50 mg daily, rosuvastatin 20 mg daily. SOCIAL HISTORY: Previous smoker, negative alcohol. FAMILY HISTORY: Hypertension. VITAL SIGNS: Temperature 99.0, blood pressure 130/75, pulse 109, respirations 21, pulse oximetry 94% on humidified O2 at flow rate of 10 liters and an FIO2 of 40%. REVIEW OF SYSTEMS: This is a well-nourished male currently in no acute distress. He continues to have shortness of breath; however, this has been improved with the oxygen therapy. He does not report any cough or sputum production at this time. No chest pain, palpitations, diaphoresis. Recent development of nausea as well as abdominal distention. He did have several small bowel movements yesterday. No red blood per rectum, no dark tarry stools. No fever, chills. No recent inadvertent weight loss. All other review of systems negative. PHYSICAL EXAMINATION: CHEST: Scattered rales and rhonchi bilaterally. HEART: Regular, no murmurs. EXTREMITIES: +1/2 bilateral lower extremity edema. Negative Homans sign. HEENT: No scleral icterus. No cervical lymphadenopathy. ABDOMEN: Soft, slightly distended. There is pain in the right lower abdominal quadrant upon deep palpation with no peritoneal signs. SKIN: Warm, dry. LABORATORY DATA: WBC 14.0, hemoglobin 8.3, hematocrit 26, platelets 230, BUN 26, creatinine 1.16. Troponin was elevated at 2.30. His recent arterial blood gas yesterday appeared to be within normal limits. ASSESSMENT AND PLAN: A 67-year-old male with an extensive past medical history including severe coronary artery disease, not amenable to percutaneous interventional therapy. He was also evaluated at recently and deemed not in good enough physical capacity to sustain and recover from open coronary artery bypass grafting. He also has a history of atrial fibrillation, hypertension, history of stroke and current pneumonia and sepsis. On this admission, he did develop pain in the right lower abdominal quadrant where a CT scan was performed, which did show some dilated loops of small bowel; however, not severe and stool and air within the colon and rectum. At this time, we feel that this is most likely an ileus versus a partial small-bowel obstruction due to his overall poor medical condition as well as possible medications. We will recommend conservative medical management for now with nasogastric tube decompression and bowel rest as well as time and continuation of his current antibiotic regimen. Once he has significant bowel function as well as clinical improvement, we will remove the nasogastric tube and slowly start a diet and increase in a stepwise fashion. We will continue to monitor his progress. Job ID: [id number] DocumentID: [id number] Dictated Date: 12/06/2017 19:43:45 [place] Date: 12/06/2017 20:18:37 Dictated By: HERB KELLY MD [facility]
[2017-12-06] MEDS: ROSUVASTATIN 20 MG (CRESTOR) TABLET PO SCH (22:01)
[2017-12-07] VITALS (18 sets, daily range): BP systolic 95–128; BP diastolic 65–108
[2017-12-07] MEDS: methylPREDNISolone 40 MG/ML (Solu-MEDROL) VIAL IV SCH ×4 (00:43→17:44)
[2017-12-07] MEDS: RT-ALBUTEROL/IPRATROPIUM 3 ML (DUONEB) VIAL INH SCH ×5 (01:58→18:54)
[2017-12-07] MEDS: CATHETER FLUSH 10 ML SYR IV SCH ×3 (02:28→22:36)
[2017-12-07] MEDS: MAGNESIUM 1 GM/100 ML IVPB 100 ML IV SCH (03:48)
[2017-12-07] MEDS: KCL 20 MEQ TAB (K-DUR) PO SCH (03:48)
[2017-12-07] MEDS: POTASSIUM CL 10MEQ/50ML IVPB 50 ML IV SCH (03:48)
[2017-12-07] MEDS: VASOPRESSIN INJECTION 20 UNIT in NS (IVPB) 100 ML IV SCH ×5 (03:48→22:55)
[2017-12-07 04:10] LABS: BASOPHILS % (AUTO) 0 % (0-10); EOSINOPHILS % (AUTO) 0 % (0-10); HEMATOCRIT 25 % (40-54); HEMOGLOBIN 8.2 G/DL (13.3-17.7); LYMPHOCYTES # (AUTO) 0.6 X 10^3 (1.0-4.0); LYMPHOCYTES % (AUTO) 4 % (12-44); MEAN CORPUSCULAR HEMOGLOBIN 32 PG (25-34); MEAN CORPUSCULAR HGB CONC 33 G/DL (32-36); MEAN CORPUSCULAR VOLUME 97 FL (80-99); MEAN PLATELET VOLUME 10.4 FL (7.4-10.4); MONOCYTES # (AUTO) 1.3 X 10^3 (0.0-1.0); MONOCYTES % (AUTO) 8 % (0-12); NEUTROPHILS # (AUTO) 13.8 X 10^3 (1.8-7.8); NEUTROPHILS % (AUTO) 88 % (42-75); PLATELET COUNT 239 10^3/uL (130-400); RED BLOOD COUNT 2.57 10^6/uL (4.35-5.85); RED CELL DISTRIBUTION WIDTH 16.4 % (10.0-14.5); WHITE BLOOD COUNT 15.8 10^3/uL (4.3-11.0)
[2017-12-07 04:32] LABS: CREATININE SERUM 1.2 MG/DL (0.60-1.30); MAGNESIUM 2.6 MG/DL (1.8-2.4); PHOSPHORUS 2.8 MG/DL (2.3-4.7)
--- NOTE | 2017-12-07 06:43 | Diagnostic Imaging Report ---
Portable erect AP chest at 324 hours. INDICATION: Dyspnea. FINDINGS: When compared to the prior exam of 12/06/2017, there does not appear to have been any significant change. As on the prior study, there is shallow inspiration. Allowing for this technical factor, the heart is stable. There is still persistent elevation of the hemidiaphragms bilaterally. The atelectasis/infiltrate and fluid involving the lung bases seen on the CT abdomen/pelvis exam of 12/06/2017 is not well appreciated. The upper lungs are generally clear. The mediastinum is not widened. The osseous structures are intact. There is an NG line in place with the tip overlying the region of the duodenal bulb. There does seem to be somewhat less distention of the transverse colon by gas than noted on the prior CT exam. IMPRESSION: Stable chest. There has been no adverse change since the prior exam. A followup study would be recommended for continued evaluation. Dictated by: Dictated on workstation # [id number]
--- NOTE | 2017-12-07 07:10 | Pulmonary Progress Note ---
Sepsis Event Evaluation Height, Weight, BMI Height: 5'8.00" Weight: 213lbs. 3.0oz. 96.721434uu; 28.4 BMI Method:Stated Focused Exam Lactate Level 12/05/17 06:40: Lactic Acid Level 0.97 Time of Focused Exam: 00:01 Exam Exam Vital Signs Date Time Temp Pulse Resp B/P (MAP) Pulse Ox O2 Delivery O2 Flow Rate FiO2 12/07/17 06:39 97 Vapotherm 10.00 40 12/07/17 06:12 110 20 128/70 (89) 96 Vapotherm 40.00 10.00 12/07/17 05:04 109 21 121/70 (87) 96 Vapotherm 40.00 10.00 12/07/17 04:00 95 Vapotherm 10.00 40 12/07/17 04:00 110 16 98/67 (77) 95 Vapotherm 40.00 10.00 12/07/17 03:00 106 24 104/68 (80) 93 Vapotherm 40.00 10.00 12/07/17 02:00 102 23 110/77 (88) 95 Vapotherm 40.00 10.00 12/07/17 01:58 95 Vapotherm 10.00 40 12/07/17 01:00 102 15 108/70 (83) 96 Vapotherm 40.00 10.00 12/07/17 01:00 101 12/07/17 00:00 96 Vapotherm 10.00 40 12/07/17 00:00 101 18 98/66 (77) 95 Vapotherm 40.00 10.00 12/06/17 23:00 111 17 101/62 (75) 93 Vapotherm 40.00 10.00 12/06/17 22:25 95 Vapotherm 10.00 40 12/06/17 22:00 102 16 117/74 (88) 96 Vapotherm 40.00 10.00 12/06/17 21:07 98.6 Vapotherm 40.00 10.00 12/06/17 21:00 106 15 130/78 (95) 96 Vapotherm 40.00 10.00 12/06/17 20:00 106 19 142/75 (97) 95 Vapotherm 40.00 10.00 12/06/17 20:00 97 Vapotherm 10.00 40 12/06/17 19:00 111 12/06/17 19:00 111 25 125/73 (90) 95 Vapotherm 40.00 10.00 12/06/17 18:58 94 Vapotherm 10.00 40 12/06/17 18:00 103 20 104/74 (84) 95 Vapotherm 40.00 10.00 12/06/17 17:00 109 21 130/75 (93) 93 Vapotherm 40.00 10.00 12/06/17 16:36 99.0 12/06/17 16:32 96 Vapotherm 10.00 40 12/06/17 16:00 103 17 128/85 (99) 94 Vapotherm 40.00 10.00 12/06/17 15:00 102 16 130/98 (109) 92 Vapotherm 40.00 10.00 12/06/17 14:00 101 17 124/92 (103) 94 Vapotherm 40.00 10.00 12/06/17 13:57 91 Vapotherm 10.00 40 12/06/17 13:00 102 12/06/17 13:00 100 17 129/73 (91) 91 Vapotherm 40.00 10.00 12/06/17 11:50 92 Vapotherm 10.00 40 12/06/17 11:49 98.9 12/06/17 11:00 101 19 112/65 (81) 92 Vapotherm 40.00 10.00 12/06/17 10:00 107 23 110/69 (83) 90 Vapotherm 40.00 10.00 12/06/17 09:56 93 Vapotherm 10.00 40 12/06/17 09:00 80 23 129/72 (91) 94 Vapotherm 40.00 10.00 12/06/17 08:45 Vapotherm 10.00 40 12/06/17 08:20 92 Vapotherm 10.00 40 12/06/17 08:20 Vapotherm 40.00 10.00 12/06/17 08:10 78 20 98 30.00 12/06/17 08:00 98.2 12/06/17 08:00 84 23 106/72 (83) 94 Vapotherm 40.00 10.00 I & O 12/07/17 07:00 Intake Total 1200 ml Output Total 3925 ml Balance -2725 ml Height & Weight Height: 5'8.00" Weight: 213lbs. 3.0oz. 96.915092jy; 28.4 BMI Method:Stated General Appearance: WD/WN, Mild Distress HEENT: PERRL/EOMI, Pharynx Normal Neck: Full Range of Motion, Supple Respiratory: Chest Non Tender, Lungs Clear, Normal Breath Sounds, No Accessory Muscle Use Cardiovascular: Regular Rate, Rhythm Capillary Refill: Less Than 3 Seconds Peripheral Pulses: 2+ Dorsalis Pedis (R), 2+ Left Dors-Pedis (L) Gastrointestinal: normal bowel sounds, non tender, soft Extremity: Normal Capillary Refill, Non Tender, No Calf Tenderness, No Pedal Edema Neurologic/Psychiatric: No Motor/Sensory Deficits, Normal Mood/Affect Skin: Warm/Dry Lymphatic: No Adenopathy Results Lab Laboratory Tests 12/06/17 03:01 12/07/17 03:43 Assessment/Plan Assessment/Plan Acute on chronic respiratory failure -BiPAP- Vapotherm during the day, oxygen -SVNS Q4hrs -SOlumedrol 40 IV Q 6 Metabolic encephalopathy -Risperdal -Continue to monitor Hx of COPD Severe CAD with concurrent NSTEMI (troponin 4.85) -PT was not a candidate for CABG per -He was just discharged from day prior to this admission. -Cardiology following Severe sepsis with UTI and pneumonia -Continue Cefepime, and D/C vanco -Await clancy cultures Anemia --Stable -Occult stool -Monitor -PT is on plavix and Eliquis MEtabolic acidosis -IVF Hx of CVA with slurred speech at baseline NEO MCCRACKEN DO Dec 07, 2017 07:10
[2017-12-07] MEDS: DEXMEDETOMIDINE IV SCH ×3 (07:50→23:03)
[2017-12-07] MEDS: NS IV SCH ×3 (07:50→23:03)
[2017-12-07] MEDS: 1/2 NS W/KCL 20 MEQ/L 1,000 ML IV SCH ×2 (08:31→22:36)
[2017-12-07] MEDS: PANTOPRAZOLE 40 MG (PROTONIX) VIAL IV SCH (08:31)
[2017-12-07] MEDS: ENOXAPARIN 80 MG/0.8 ML (LOVENOX) SYR SC SCH ×2 (08:32→22:41)
[2017-12-07] MEDS: CLOPIDOGREL 75 MG (PLAVIX) TABLET PO SCH (08:33)
[2017-12-07] MEDS: CEFEPIME 2 GM/NS 50 ML IVPB IV SCH ×4 (08:33→22:41)
[2017-12-07] MEDS: DOCUSATE SODIUM 100 MG (COLACE) CAP PO SCH ×2 (08:33→22:50)
[2017-12-07] MEDS: risperiDONE 0.25 MG (RisperDAL) TAB PO SCH ×2 (08:33→22:51)
[2017-12-07] MEDS ORDERED: FUROSEMIDE 40 MG/4 ML INJ (LASIX) IVP SCH (09:00)
--- NOTE | 2017-12-07 11:23 | Progress Note (SOAP) ---
Subjective Date Seen by a Provider: Dec 07, 2017 Time Seen by a Provider: 10:30 Subjective/Events-last exam doing better today since NGT placement. suspect ileus vs. constipation vs. mild PSBO. no peritoneal signs. poor surgical risk. Focused Exam Lactate Level 12/05/17 06:40: Lactic Acid Level 0.97 Time of Focused Exam: 00:01 Objective Exam Vital Signs Date Time Temp Pulse Resp B/P (MAP) Pulse Ox O2 Delivery O2 Flow Rate FiO2 12/07/17 10:35 96 Vapotherm 10.00 40 12/07/17 08:00 97 Vapotherm 10.00 40 12/07/17 07:00 106 12/07/17 06:39 97 Vapotherm 10.00 40 12/07/17 06:12 110 20 128/70 (89) 96 Vapotherm 40.00 10.00 12/07/17 05:04 109 21 121/70 (87) 96 Vapotherm 40.00 10.00 12/07/17 04:00 95 Vapotherm 10.00 40 12/07/17 04:00 110 16 98/67 (77) 95 Vapotherm 40.00 10.00 12/07/17 03:00 106 24 104/68 (80) 93 Vapotherm 40.00 10.00 12/07/17 02:00 102 23 110/77 (88) 95 Vapotherm 40.00 10.00 12/07/17 01:58 95 Vapotherm 10.00 40 12/07/17 01:00 102 15 108/70 (83) 96 Vapotherm 40.00 10.00 12/07/17 01:00 101 12/07/17 00:00 96 Vapotherm 10.00 40 12/07/17 00:00 101 18 98/66 (77) 95 Vapotherm 40.00 10.00 12/06/17 23:00 111 17 101/62 (75) 93 Vapotherm 40.00 10.00 12/06/17 22:25 95 Vapotherm 10.00 40 12/06/17 22:00 102 16 117/74 (88) 96 Vapotherm 40.00 10.00 12/06/17 21:07 98.6 Vapotherm 40.00 10.00 12/06/17 21:00 106 15 130/78 (95) 96 Vapotherm 40.00 10.00 12/06/17 20:00 106 19 142/75 (97) 95 Vapotherm 40.00 10.00 12/06/17 20:00 97 Vapotherm 10.00 40 12/06/17 19:00 111 12/06/17 19:00 111 25 125/73 (90) 95 Vapotherm 40.00 10.00 12/06/17 18:58 94 Vapotherm 10.00 40 12/06/17 18:00 103 20 104/74 (84) 95 Vapotherm 40.00 10.00 12/06/17 17:00 109 21 130/75 (93) 93 Vapotherm 40.00 10.00 12/06/17 16:36 99.0 12/06/17 16:32 96 Vapotherm 10.00 40 12/06/17 16:00 103 17 128/85 (99) 94 Vapotherm 40.00 10.00 12/06/17 15:00 102 16 130/98 (109) 92 Vapotherm 40.00 10.00 12/06/17 14:00 101 17 124/92 (103) 94 Vapotherm 40.00 10.00 12/06/17 13:57 91 Vapotherm 10.00 40 12/06/17 13:00 102 12/06/17 13:00 100 17 129/73 (91) 91 Vapotherm 40.00 10.00 12/06/17 11:50 92 Vapotherm 10.00 40 12/06/17 11:49 98.9 I & O 12/07/17 07:00 Intake Total 1200 ml Output Total 3925 ml Balance -2725 ml Capillary Refill : Less Than 3 Seconds General Appearance: No Apparent Distress HEENT: PERRL/EOMI Neck: Full Range of Motion Respiratory: Decreased Breath Sounds, Rales, Wheezing Cardiovascular: Regular Rate, Rhythm Gastrointestinal: soft, distended, other (no peritoneal signs) Extremity: Normal Capillary Refill Neurologic/Psychiatric: Alert, Oriented x3 Skin: Normal Color Lymphatic: No Adenopathy Results Lab Laboratory Tests 12/07/17 03:43: White Blood Count 15.8H, Red Blood Count 2.57L, Hemoglobin 8.2L, Hematocrit 25L , Mean Corpuscular Volume 97, Mean Corpuscular Hemoglobin 32, Mean Corpuscular Hemoglobin Concent 33, Red Cell Distribution Width 16.4H, Platelet Count 239, Mean Platelet Volume 10.4, Neutrophils (%) (Auto) 88H, Lymphocytes (%) (Auto) 4L , Monocytes (%) (Auto) 8, Eosinophils (%) (Auto) 0, Basophils (%) (Auto) 0, Neutrophils # (Auto) 13.8H, Lymphocytes # (Auto) 0.6L, Monocytes # (Auto) 1.3H, Eosinophils # (Auto) 0.0, Basophils # (Auto) 0.0, Sodium Level 139, Potassium Level 4.0, Chloride Level 112H, Carbon Dioxide Level 19L, Anion Gap 8, Blood Urea Nitrogen 27H, Creatinine 1.20, Estimat Glomerular Filtration Rate 60, BUN/ Creatinine Ratio 23, Glucose Level 114H, Calcium Level 8.0L, Phosphorus Level 2.8, Magnesium Level 2.6H Microbiology 12/01/17 Blood Culture - Preliminary, Resulted No growth 12/02/17 MRSA Screen - Final, Complete MRSA not isolated 12/01/17 Urine Culture - Final, Complete NO GROWTH Assessment/Plan Assessment/Plan Assess & Plan/Chief Complaint ileus vs. constipation vs. PSBO. conservative management with NGT decompression and bowel rest. will proceed with initial trial of suppository. Clinical Quality Measures DVT/VTE Risk/Contraindication: Risk Factor Score Per Nursin RFS Level Per Nursing on Admit: 4+=Very High HERB KELLY MD Dec 07, 2017 11:23 am
--- NOTE | 2017-12-07 11:24 | Progress Note-Hospitalist ---
Subjective HPI/CC On Admission Date Seen by Provider: Dec 07, 2017 Time Seen by Provider: 09:10 Subjective/Events-last exam Patient appears to be in mild respiratory distress. He is able to answer yes and no questions but severe expressive aphasia reportedly from a stroke in 2012 significantly hampers history taking. He denies pain and currently denies shortness of breath at rest but is so with any type of exertion. He's had a loose nonproductive cough. He denies chest pain. Patient currently denies abdominal pain and has been passing gas with no reported stool. Focused Exam Lactate Level 12/05/17 06:40: Lactic Acid Level 0.97 Time of Focused Exam: 00:01 Objective Exam Vital Signs Vital Signs Date Time Temp Pulse Resp B/P (MAP) Pulse Ox O2 Delivery O2 Flow Rate FiO2 12/07/17 10:35 96 Vapotherm 10.00 40 12/07/17 07:00 106 12/07/17 06:12 20 128/70 (89) 12/06/17 21:07 98.6 Capillary Refill : Less Than 3 Seconds General Appearance: Chronically ill, Mild Distress, Obese Respiratory: Chest Non Tender, Accessory Muscle Use, Other (Rales and coarse rhonchi noted throughout without wheezing) Cardiovascular: Regular Rate, Rhythm, No Edema, No Gallop, No JVD, Normal Peripheral Pulses, Other (Heart sounds somewhat difficult to appreciate over respiratory congestion.) Gastrointestinal: Tenderness (Generalized mild no rebound or guarding bowel sounds positive) Results/Procedures Lab Laboratory Tests 12/07/17 03:43 Patient resulted labs reviewed. Assessment/Plan Assessment and Plan Assess & Plan/Chief Complaint 1. Likely hospital-acquired pneumonia with respiratory distress continue broad- spectrum antibiotics and high flow oxygen. 2. Reported severe triple vessel disease not amenable to surgery after evaluation at and high risk for catheter-based therapy. Troponin levels are slowly decreasing suspect possible type II PA secondary to number 1 and severe triple-vessel disease for this hospitalization. Continue to monitor defer to cardiology. Poor prognosis. 3. History of paroxysmal atrial fibrillation with previous CVA reportedly in 2012 continue anticoagulant therapy. 4. Partial small bowel obstruction versus ileus clinically resolving continue to monitor. Critical Care Critical Care: Critically Ill Patient Clinical Quality Measures DVT/VTE Risk/Contraindication: Risk Factor Score Per Nursin RFS Level Per Nursing on Admit: 4+=Very High MARILY MENJIVAR MD Dec 07, 2017 11:24
--- NOTE | 2017-12-07 13:42 | Progress Note-Cardiology ---
Cardiology SOAP Progress Note Subjective: No cp Discomfort from NG tube No palp or syncope or shortness of breath Gen malaise Objective: I&O/Vital Signs 12/07/17 12/07/17 12/07/17 12/07/17 01:58 02:00 03:00 04:00 Pulse 102 106 110 Resp 23 24 16 B/P (MAP) 110/77 (88) 104/68 (80) 98/67 (77) Pulse Ox 95 95 93 95 O2 Delivery Vapotherm Vapotherm Vapotherm Vapotherm O2 Flow Rate 10.00 40.00 40.00 40.00 10.00 10.00 10.00 FiO2 40 12/07/17 12/07/17 12/07/17 12/07/17 04:00 05:04 06:12 06:39 Pulse 109 110 Resp 21 20 B/P (MAP) 121/70 (87) 128/70 (89) Pulse Ox 95 96 96 97 O2 Delivery Vapotherm Vapotherm Vapotherm Vapotherm O2 Flow Rate 10.00 40.00 40.00 10.00 10.00 10.00 FiO2 40 40 12/07/17 12/07/17 12/07/17 12/07/17 07:00 07:00 08:00 08:00 Pulse 106 112 114 Resp 18 20 B/P (MAP) 112/72 (85) 111/73 (86) Pulse Ox 96 97 96 O2 Delivery Vapotherm Vapotherm Vapotherm O2 Flow Rate 40.00 10.00 40.00 10.00 10.00 FiO2 40 12/07/17 12/07/17 12/07/17 12/07/17 09:00 10:00 10:35 11:00 Pulse 116 128 131 Resp 29 29 28 B/P (MAP) 95/72 (80) 116/90 (99) 96/66 (76) Pulse Ox 96 98 96 96 O2 Delivery Vapotherm Vapotherm Vapotherm Vapotherm O2 Flow Rate 40.00 40.00 10.00 40.00 10.00 10.00 10.00 FiO2 40 12/07/17 13:00 Pulse 125 12/07/17 00:00 Intake Total 1200 ml Output Total 3300 ml Balance -2100 ml Weight (Pounds): 213 Weight (Ounces): 3.0 Weight (Calculated Kilograms): 96.616279 Constitutional: appears stated age, AAO x 3, apparent distress, well-developed , well-nourished Respiratory: No accessory muscle use, No respiratory distress; chest is bilaterally symmetric, wheezing Cardiovascular: regular rate-rhythm, S1 and S2, systolic murmur (CHARLA at card base), other (skin erosion at the site of implantable loop recorder.) Gastrointestional: No tender; distended; No guarding, No rebound Genital/Rectal: No tenderness; other (Ecchymoses all over scrotum and penis) Extremities: swelling (mild bilat leg edema); No clubbing, No cyanosis Neurologic/Psychiatric: alert, normal mood/affect, oriented x 3, power is 5/5 both on sides Skin: normal color, warm/dry; No rash on exposed areas, No ulcerations on exposed areas Results/Procedures: Labs Laboratory Tests 12/07/17 03:43: White Blood Count 15.8H, Red Blood Count 2.57L, Hemoglobin 8.2L, Hematocrit 25L , Mean Corpuscular Volume 97, Mean Corpuscular Hemoglobin 32, Mean Corpuscular Hemoglobin Concent 33, Red Cell Distribution Width 16.4H, Platelet Count 239, Mean Platelet Volume 10.4, Neutrophils (%) (Auto) 88H, Lymphocytes (%) (Auto) 4L , Monocytes (%) (Auto) 8, Eosinophils (%) (Auto) 0, Basophils (%) (Auto) 0, Neutrophils # (Auto) 13.8H, Lymphocytes # (Auto) 0.6L, Monocytes # (Auto) 1.3H, Eosinophils # (Auto) 0.0, Basophils # (Auto) 0.0, Sodium Level 139, Potassium Level 4.0, Chloride Level 112H, Carbon Dioxide Level 19L, Anion Gap 8, Blood Urea Nitrogen 27H, Creatinine 1.20, Estimat Glomerular Filtration Rate 60, BUN/ Creatinine Ratio 23, Glucose Level 114H, Calcium Level 8.0L, Phosphorus Level 2.8, Magnesium Level 2.6H Microbiology 12/01/17 Blood Culture - Preliminary, Resulted No growth 12/02/17 MRSA Screen - Final, Complete MRSA not isolated 12/01/17 Urine Culture - Final, Complete NO GROWTH Laboratory Tests 12/06/17 03:01 12/07/17 03:43 Laboratory Tests 12/06/17 03:01 12/07/17 03:43 A/P: Assessment: Severe sepsis with respiratory distress, likely source is hospital acquired pneumonia Non-STEMI. Severe CAD with severe stenosis of the mid LAD and involves the ostium of the large D1, severe stenosis if the OM which after the stenosis divides up into two large branches, severe pRCA stenosis. Was referred to [facility] but patient was found to be an inappropriate candidate for surgical revascularization and high risk for PCI PAF -continue anticoag and rate control. Remote CVA - stroke was in 2012. Residual abnormalities present. Mild/moderate present. mean gradient 17mmHg H/o transient symptomatic second degree AV block with hypotension. Sinus rhythm with 1-1 conduction throughout this admission. Skin erosion at the site of implantable loop recorder: ILR removed by Dr Lancaster Ileus, being managed by the Surgical Service, pt currently has an NGT in place Plan: * Complex management due to multiple comorbidities that are outlined above * Continue aggressive medical management for his multiple cardiac issues. Continue antiplatelet therapy for CAD and anticoag for stroke prophylaxis. Not suitable for bb due to 2nd deg AV block that is reported to have been associated with hypotension * Dr Lancaster may consider high-risk cor intervention once recovered from current acute illness * Consider blood transfusion if H/H drop further * Monitor labs closely PEYMAN TURCIOS MD FACP FAC CCDS Dec 07, 2017 13:42
[2017-12-07] MEDS ORDERED: morphine INJ 4 MG/ML 1 ML (VIAL/SYRINGE) IVP PRN (17:30)
[2017-12-07] MEDS: morphine INJ 4 MG/ML 1 ML (VIAL/SYRINGE) IVP PRN ×2 (17:44→22:21)
[2017-12-07] MEDS: HALOPERIDOL 5 MG/ML (HALDOL) AMP IV PRN (22:34)
[2017-12-07] MEDS: ROSUVASTATIN 20 MG (CRESTOR) TABLET PO SCH (22:50)
[2017-12-08] VITALS: BP 79/55
[2017-12-08] MEDS: methylPREDNISolone 40 MG/ML (Solu-MEDROL) VIAL IV SCH (00:21)
[2017-12-08] MEDS ORDERED: ALBUMIN 5% 12.5 GM/250 ML 500 ML IV ONE (00:55)
[2017-12-08 01:00] VITALS: BP 71/53
[2017-12-08] MEDS ORDERED: PROMETHAZINE INJ 25 MG/ML (PHENERGAN) AMP IVP PRN (01:15)
[2017-12-08] MEDS ORDERED: ONDANSETRON 4 MG/2 ML (SDV) Z0FRAN IVP PRN (01:15)
[2017-12-08] MEDS ORDERED: ACETAMINOPHEN 650 MG SUPP (TYLENOL) PR PRN (01:15)
[2017-12-08] MEDS ORDERED: BISACODYL 10 MG SUPP (DULCOLAX) PR PRN (01:15)
[2017-12-08] MEDS ORDERED: RT-ALBUTEROL/IPRATROPIUM 3 ML (DUONEB) VIAL INH PRN (01:15)
[2017-12-08] MEDS ORDERED: SALIVA STIMULANT MOUTH SPRAY (BIOTENE) 1.5 OZ MM PRN (01:15)
[2017-12-08 02:00] VITALS: BP 74/48
[2017-12-08] MEDS: morphine INJ 4 MG/ML 1 ML (VIAL/SYRINGE) IVP PRN ×8 (02:14→17:18)
[2017-12-08] MEDS: LORazepam INJ 2 MG/ML (ATIVAN) VIAL IVP PRN ×5 (02:21→17:18)
--- NOTE | 2017-12-08 05:36 | Pulmonary Progress Note ---
Subjective Time Seen by a Provider: 05:34 Subjective/Events-last exam Pt is now comfort care only. Sepsis Event Evaluation Height, Weight, BMI Height: 5'8.00" Weight: 213lbs. 3.0oz. 96.476589zv; 28.4 BMI Method:Stated Focused Exam Lactate Level 12/05/17 06:40: Lactic Acid Level 0.97 Time of Focused Exam: 00:01 Exam Exam Vital Signs Date Time Temp Pulse Resp B/P (MAP) Pulse Ox O2 Delivery O2 Flow Rate FiO2 12/08/17 04:00 Nasal Cannula 2.00 12/08/17 02:00 65 74/48 (57) 100 NIV Bilevel 80.00 12/08/17 01:00 79 18 71/53 (59) 100 NIV Bilevel 80.00 12/08/17 01:00 79 12/08/17 00:00 84 18 79/55 (63) 100 NIV Bilevel 80.00 12/08/17 00:00 100 Nasal Cannula 4.00 12/07/17 23:00 112 24 100 NIV Bilevel 80.00 12/07/17 22:50 High Flow N/C 3.00 12/07/17 22:00 120 26 100 NIV Bilevel 80.00 12/07/17 21:36 110 27 100 100.00 12/07/17 21:35 107 19 100 NIV Bilevel 80.00 12/07/17 21:23 116 29 108/65 (79) 91 NIV Bilevel 100.00 12/07/17 21:10 NIV Bilevel 100.00 12/07/17 20:06 116 92 21 12/07/17 20:00 98.3 54 30 94 Nasal Cannula 3.00 12/07/17 20:00 92 Room Air 12/07/17 19:00 120 12/07/17 18:54 92 Room Air 12/07/17 18:00 120 21 95 Room Air 12/07/17 17:00 125 31 104/69 (81) 95 Room Air 12/07/17 16:00 128 40 95 Room Air 12/07/17 15:57 93 Room Air 12/07/17 15:00 130 25 95 Room Air 12/07/17 14:21 95 Room Air 12/07/17 14:00 125 21 93 Room Air 12/07/17 13:00 125 12/07/17 13:00 122 25 120/80 (93) 95 Room Air 12/07/17 12:00 131 28 96/66 (76) 96 Vapotherm 40.00 10.00 12/07/17 12:00 93 Room Air 12/07/17 11:00 131 28 96/66 (76) 96 Vapotherm 40.00 10.00 12/07/17 10:35 96 Vapotherm 10.00 40 12/07/17 10:00 128 29 116/90 (99) 98 Vapotherm 40.00 10.00 12/07/17 09:00 116 29 95/72 (80) 96 Vapotherm 40.00 10.00 12/07/17 08:00 114 20 111/73 (86) 96 Vapotherm 40.00 10.00 12/07/17 08:00 97 Vapotherm 10.00 40 12/07/17 07:00 112 18 112/72 (85) 96 Vapotherm 40.00 10.00 12/07/17 07:00 106 12/07/17 06:39 97 Vapotherm 10.00 40 12/07/17 06:12 110 20 128/70 (89) 96 Vapotherm 40.00 10.00 I & O 12/08/17 07:00 Intake Total 0 ml Output Total 1175 ml Balance -1175 ml Height & Weight Height: 5'8.00" Weight: 213lbs. 3.0oz. 96.299211tm; 28.4 BMI Method:Stated General Appearance: No Apparent Distress, Chronically ill, Obese HEENT: PERRL/EOMI Neck: Full Range of Motion Respiratory: Chest Non Tender, Accessory Muscle Use, Other (Rales and coarse rhonchi noted throughout without wheezing) Cardiovascular: Regular Rate, Rhythm, No Edema, No Gallop, No JVD, Normal Peripheral Pulses, Other (Heart sounds somewhat difficult to appreciate over respiratory congestion.) Capillary Refill: Less Than 3 Seconds Peripheral Pulses: 2+ Dorsalis Pedis (R), 2+ Left Dors-Pedis (L) Gastrointestinal: soft, distended, other (no peritoneal signs) Extremity: Normal Capillary Refill Neurologic/Psychiatric: Other (sedated) Skin: Normal Color Lymphatic: No Adenopathy Results Lab Laboratory Tests 12/07/17 03:43 Assessment/Plan Assessment/Plan Pt is now comfort care only per . PT is currently comfortable with medications. I will transfer patient to 4th floor. I am going to sign off please call with any questions. Acute on chronic respiratory failure Metabolic encephalopathy Hx of COPD Severe CAD with concurrent NSTEMI (troponin 4.85) Severe sepsis with UTI and pneumonia Anemia --Stable MEtabolic acidosis -IVF Hx of CVA with slurred speech at baseline NEO MCCRACKEN DO Dec 08, 2017 5:36 am
[2017-12-08] MEDS: CATHETER FLUSH 10 ML SYR IV SCH ×3 (06:36→13:52)
[2017-12-08] MEDS: ARTIFICAL TEARS 0.4 ML UNIT DOSE (REFRESH PLUS) OU PRN ×2 (11:00→13:02)
--- NOTE | 2017-12-08 11:11 | Progress Note-Hospitalist ---
Subjective HPI/CC On Admission Date Seen by Provider: Dec 08, 2017 Time Seen by Provider: 10:45 Subjective/Events-last exam Patient temporarily opens eyes to physical stimulation without response her attempting to voice words. At baseline he has significant expressive aphasia. Respirations are irregular slightly labored but the patient readily falls back asleep after verbal or physical stimulation and otherwise does not appear to be in acute distress. He does not have typical Rajesh-Lee pattern at this point and appears comfortable. Blood pressure decreased last night to the 60/ 30 range and after discussion with about grave prognosis she agrees with comfort care protocol which has been initiated. Focused Exam Time of Focused Exam: 00:01 Objective Exam Vital Signs Vital Signs Date Time Temp Pulse Resp B/P (MAP) Pulse Ox O2 Delivery O2 Flow Rate FiO2 12/08/17 09:00 High Flow N/C 3.00 12/08/17 02:00 65 74/48 (57) 100 12/08/17 01:00 18 12/07/17 20:06 21 12/07/17 20:00 98.3 Capillary Refill : Less Than 3 Seconds General Appearance: No Apparent Distress, Chronically ill Respiratory: Accessory Muscle Use, Other (Anteriorly the chest is surprisingly clear he has minimal posterior breath sounds bilaterally) Cardiovascular: Regular Rate, Rhythm, No Edema, No Gallop, No JVD, Normal Peripheral Pulses, Systolic Murmur (1 to 2/6 systolic ejection murmur) Extremity: Other (Extremities cool 2+ edema of the upper extremities 1-2+ lower extremities there is no mottling but there is significant pallor) Results/Procedures Lab Patient resulted labs reviewed. Assessment/Plan Assessment and Plan Assess & Plan/Chief Complaint 1. Likely hospital-acquired pneumonia with respiratory distress with likely worsening sepsis aggravated by severe ischemic cardiomyopathy resulting in hypotension. As per history of present illness patient on comfort care terminal prognosis with life expectancy measured in hours to days. 2. Reported severe triple vessel disease not amenable to surgery after evaluation at and high risk for catheter-based therapy. Troponin levels are slowly decreasing suspect possible type II VT secondary to number 1 and severe triple-vessel disease for this hospitalization. 3. History of paroxysmal atrial fibrillation with previous CVA reportedly in 2013 continue anticoagulant therapy. . Critical Care Critical Care: Critically Ill Patient Clinical Quality Measures DVT/VTE Risk/Contraindication: Risk Factor Score Per Nursin RFS Level Per Nursing on Admit: 4+=Very High MENJIVAR,MARILY D MD Dec 08, 2017 11:11
--- NOTE | 2017-12-08 11:21 | Progress Note (SOAP) ---
Subjective Date Seen by a Provider: Dec 08, 2017 Time Seen by a Provider: 10:00 Subjective/Events-last exam patient developed resp insuff last night. patient was then made comfort care only this am. NGT removed. abdomen distended. Focused Exam Time of Focused Exam: 00:01 Respiratory: Decreased Breath Sounds, Respiratory Distress Cardiovascular: Regular Rate, Rhythm Skin: cyanosis Objective Exam Vital Signs Date Time Temp Pulse Resp B/P (MAP) Pulse Ox O2 Delivery O2 Flow Rate FiO2 12/08/17 09:00 High Flow N/C 3.00 12/08/17 04:00 Nasal Cannula 2.00 12/08/17 02:00 65 74/48 (57) 100 NIV Bilevel 80.00 12/08/17 01:00 79 18 71/53 (59) 100 NIV Bilevel 80.00 12/08/17 01:00 79 12/08/17 00:00 84 18 79/55 (63) 100 NIV Bilevel 80.00 12/08/17 00:00 100 Nasal Cannula 4.00 12/07/17 23:00 112 24 100 NIV Bilevel 80.00 12/07/17 22:50 High Flow N/C 3.00 12/07/17 22:00 120 26 100 NIV Bilevel 80.00 12/07/17 21:36 110 27 100 100.00 12/07/17 21:35 107 19 100 NIV Bilevel 80.00 12/07/17 21:23 116 29 108/65 (79) 91 NIV Bilevel 100.00 12/07/17 21:10 NIV Bilevel 100.00 12/07/17 20:06 116 92 21 12/07/17 20:00 98.3 54 30 94 Nasal Cannula 3.00 12/07/17 20:00 92 Room Air 12/07/17 19:00 120 12/07/17 18:54 92 Room Air 12/07/17 18:00 120 21 95 Room Air 12/07/17 17:00 125 31 104/69 (81) 95 Room Air 12/07/17 16:00 128 40 95 Room Air 12/07/17 15:57 93 Room Air 12/07/17 15:00 130 25 95 Room Air 12/07/17 14:21 95 Room Air 12/07/17 14:00 125 21 93 Room Air 9/22/18 13:00 125 12/07/17 13:00 122 25 120/80 (93) 95 Room Air 12/07/17 12:00 131 28 96/66 (76) 96 Vapotherm 40.00 10.00 12/07/17 12:00 93 Room Air I & O 12/08/17 07:00 Intake Total 920 ml Output Total 1220 ml Balance -300 ml Capillary Refill : Less Than 3 Seconds General Appearance: No Apparent Distress Results Lab Laboratory Tests 12/07/17 20:26: Glucometer 165H Microbiology 12/01/17 Blood Culture - Final, Complete No growth 12/02/17 MRSA Screen - Final, Complete MRSA not isolated 12/01/17 Urine Culture - Final, Complete NO GROWTH Assessment/Plan Assessment/Plan Assess & Plan/Chief Complaint ileus vs. constipation vs. PSBO. extensive CAD with cardio-respiratory failure. patient made comfort care only this am. Clinical Quality Measures DVT/VTE Risk/Contraindication: Risk Factor Score Per Nursin RFS Level Per Nursing on Admit: 4+=Very High HERB KELLY MD Dec 08, 2017 11:21 am
[2017-12-08] MEDS ORDERED: morphine INJ 4 MG/ML 1 ML (VIAL/SYRINGE) ONE (13:43)
[2017-12-08] MEDS: HALOPERIDOL 5 MG/ML (HALDOL) AMP IV PRN (13:52)
[2017-12-09] MEDS: morphine INJ 4 MG/ML 1 ML (VIAL/SYRINGE) IVP PRN ×6 (00:02→18:05)
[2017-12-09] MEDS: CATHETER FLUSH 10 ML SYR IV SCH ×3 (06:25→22:44)
[2017-12-09] MEDS: LORazepam INJ 2 MG/ML (ATIVAN) VIAL IVP PRN ×2 (13:06→22:56)
[2017-12-09] MEDS: GLYCOPYRROLATE 0.2 MG/ML (ROBINUL) 2 ML VIAL IV PRN ×2 (16:01→22:45)
[2017-12-10] MEDS: LORazepam INJ 2 MG/ML (ATIVAN) VIAL IVP PRN ×4 (03:18→17:31)
[2017-12-10] MEDS: GLYCOPYRROLATE 0.2 MG/ML (ROBINUL) 2 ML VIAL IV PRN ×4 (03:19→23:44)
[2017-12-10] MEDS: CATHETER FLUSH 10 ML SYR IV SCH ×3 (03:19→23:44)
[2017-12-10] MEDS: morphine INJ 4 MG/ML 1 ML (VIAL/SYRINGE) IVP PRN ×4 (05:24→23:44)
[2017-12-10] MEDS ORDERED: SCOPOLAMINE 1.5 MG (TRANSDERM-SCOP) PATCH TOP SCH (07:45)
--- NOTE | 2017-12-10 08:32 | Progress Note ---
Subjective Date Seen by a Provider: Dec 09, 2017 Time Seen by a Provider: 09:20 Subjective/Events-last exam LATE ENTRY NOTE FROM 12/09/17 PT OBTUNDED - FAMILY REPORTS DISRUPTED BREATHING. HIS NIECES WERE PRESENT THIS MORNING, THEY DENY ANY SIGNS OF PAIN. PT UNABLE TO RESPOND TO HPI, ROS. Review of Systems General: Other (OBTUNDED) Pulmonary: Other (IRREGULAR BREATHING PATTERN) Neurological: Other (OBTUNDED) Focused Exam Time of Focused Exam: 00:01 Objective Exam Last Set of Vital Signs Vital Signs Date Time Temp Pulse Resp B/P (MAP) Pulse Ox O2 Delivery O2 Flow Rate FiO2 12/09/17 20:40 Room Air 12/08/17 09:00 3.00 12/08/17 02:00 65 74/48 (57) 100 12/08/17 01:00 18 12/07/17 20:06 21 12/07/17 20:00 98.3 Capillary Refill : Less Than 3 SecondsLess Than 3 Seconds I&O Intake and Output 12/10/17 00:00 Intake Total 0 ml Output Total 850 ml Balance -850 ml Intake Oral 0 ml Output Urine Total 850 ml General: No Acute Distress, Other (OBTUNDED) Neck: Supple Lungs: Other (CLEAR, DECREASED IN BASES) Heart: Regular Rate Abdomen: Other (HIGH PITCHED BOWEL SOUNDS WITH TENDERNESS TO PALPATION RIGHT LOWER ABDOMEN, BRUISING RIGHT FLANK) Extremities: Other (EDEMA BILATERAL LOWER EXTREMITIES TO MID ABDOMEN) Skin: No Rashes Neuro: Other (IMPROVED SPEECH) Psych/Mental Status: Other (OBTUNDED) Results Lab Microbiology 12/01/17 Blood Culture - Final, Complete No growth 12/02/17 MRSA Screen - Final, Complete MRSA not isolated 12/01/17 Urine Culture - Final, Complete NO GROWTH Assessment/Plan Assessment/Plan Assess & Plan/Chief Complaint SEPSIS PNEUMONIA CORONARY ARTERY DISEASE RECENT NSTEMI HYPERTENSION ATRIAL FIBRILLATION HX OF STROKE WITH RESIDUAL ELEVATED PSA ANEMIA COPD TOBACCOISM EDEMA PT NOW COMFORT CARE - WITH NOHELIA GUO BREATHING PATTERN, DISCUSSED WITH AVAILABLE FAMILY - ANTICIPATE PT TO PASS IN THE NEXT FEW DAYS. Clinical Quality Measures Admission Status Admission Dx SEPSIS PNEUMONIA CORONARY ARTERY DISEASE RECENT NSTEMI HYPERTENSION ATRIAL FIBRILLATION HX OF STROKE WITH RESIDUAL ELEVATED PSA SEPSIS DUE TO PNEUMONIA - PT ON HOSPITAL ACQUIRED PNEUMONIA PROTOCOL - CONTINUE WITH CURRENT MANAGEMENT. - MONITOR SERIAL CHEST XRAYS. CORONARY ARTERY DISEASE AND RECENT NSTEMI - DUE TO MULTIVESSEL DISEASE - PT NOT A SURGICAL CANDIDATE PER KU - WILL CONTINUE WITH MEDICAL MANAGEMENT. HYPERTENSION - CONTINUE TO MONITOR PRESSURE - ATRIAL FIBRILLATION - RATE CONTROLLED ON CURRENT REGIMEN - ELIQUIS FOR PROPHYLAXIS HX OF STROKE WITH RESIDUAL ELEVATED PSA - INVESTIGATION PENDING DVT/VTE Risk/Contraindication: Risk Factor Score Per Nursin RFS Level Per Nursing on Admit: 4+=Very High JACQUELYN REAL MD Dec 10, 2017 08:32
--- NOTE | 2017-12-10 09:00 | Progress Note ---
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 PT WAS ALONE, NO FAMILY AVAILABLE TO DISCUSS OVERNIGHT EVENTS. PER NURSING STAFF, PT HAD SIGNIFICANT RHONCHI LAST NIGHT. Review of Systems General: Other (OBTUNDED, SWEATING APPEARS TO HAVE FEVER) Pulmonary: Dyspnea, Cough Neurological: Weakness, Confusion Focused Exam Time of Focused Exam: 00:01 Objective Exam Last Set of Vital Signs Vital Signs Date Time Temp Pulse Resp B/P (MAP) Pulse Ox O2 Delivery O2 Flow Rate FiO2 12/09/17 20:40 Room Air 12/08/17 09:00 3.00 12/08/17 02:00 65 74/48 (57) 100 12/08/17 01:00 18 12/07/17 20:06 21 12/07/17 20:00 98.3 Capillary Refill : Less Than 3 SecondsLess Than 3 Seconds I&O Intake and Output 12/10/17 00:00 Intake Total 0 ml Output Total 850 ml Balance -850 ml Intake Oral 0 ml Output Urine Total 850 ml General: Mild Distress (WITH RHONCHI ON BREATHING), Other (OBTUNDED) Neck: Supple Lungs: Other (RHONCHI THROUGHOUT) Heart: Regular Rate Abdomen: Other (HIGH PITCHED BOWEL SOUNDS WITH TENDERNESS TO PALPATION RIGHT LOWER ABDOMEN, BRUISING RIGHT FLANK) Extremities: Other (EDEMA AT FEET/ANKLES AND MILD EDEMA OF HANDS) Skin: No Rashes Neuro: Other (IMPROVED SPEECH) Psych/Mental Status: Other (OBTUNDED) Results Lab Microbiology 12/01/17 Blood Culture - Final, Complete No growth 12/02/17 MRSA Screen - Final, Complete MRSA not isolated 12/01/17 Urine Culture - Final, Complete NO GROWTH Assessment/Plan Assessment/Plan Assess & Plan/Chief Complaint SEPSIS PNEUMONIA CORONARY ARTERY DISEASE RECENT NSTEMI HYPERTENSION ATRIAL FIBRILLATION HX OF STROKE WITH RESIDUAL ELEVATED PSA ANEMIA COPD TOBACCOISM EDEMA PT NOW COMFORT CARE - WITH NOHELIA GUO BREATHING PATTERN AND INCREASED RHONCHI ANTICIPATE PT TO PASS IN THE NEXT FEW DAYS. Clinical Quality Measures Admission Status Admission Dx SEPSIS PNEUMONIA CORONARY ARTERY DISEASE RECENT NSTEMI HYPERTENSION ATRIAL FIBRILLATION HX OF STROKE WITH RESIDUAL ELEVATED PSA SEPSIS DUE TO PNEUMONIA - PT ON HOSPITAL ACQUIRED PNEUMONIA PROTOCOL - CONTINUE WITH CURRENT MANAGEMENT. - MONITOR SERIAL CHEST XRAYS. CORONARY ARTERY DISEASE AND RECENT NSTEMI - DUE TO MULTIVESSEL DISEASE - PT NOT A SURGICAL CANDIDATE PER KU - WILL CONTINUE WITH MEDICAL MANAGEMENT. HYPERTENSION - CONTINUE TO MONITOR PRESSURE - ATRIAL FIBRILLATION - RATE CONTROLLED ON CURRENT REGIMEN - ELIQUIS FOR PROPHYLAXIS HX OF STROKE WITH RESIDUAL ELEVATED PSA - INVESTIGATION PENDING DVT/VTE Risk/Contraindication: Risk Factor Score Per Nursin RFS Level Per Nursing on Admit: 4+=Very High JACQUELYN REAL MD Dec 10, 2017 09:00
[2017-12-10] MEDS: CATHETER FLUSH 10 ML SYR IV PRN ×2 (09:30→17:31)
[2017-12-11] MEDS: GLYCOPYRROLATE 0.2 MG/ML (ROBINUL) 2 ML VIAL IV PRN ×3 (04:08→15:20)
[2017-12-11] MEDS: LORazepam INJ 2 MG/ML (ATIVAN) VIAL IVP PRN ×5 (04:08→18:12)
[2017-12-11] MEDS: CATHETER FLUSH 10 ML SYR IV SCH ×2 (04:09→12:50)
[2017-12-11] MEDS: morphine INJ 4 MG/ML 1 ML (VIAL/SYRINGE) IVP PRN ×3 (09:42→18:12)
[2017-12-11] MEDS: HALOPERIDOL 5 MG/ML (HALDOL) AMP IV PRN (12:50)
[2017-12-11] MEDS: CATHETER FLUSH 10 ML SYR IV PRN ×2 (15:27→18:12)
[2017-12-13] MEDS ORDERED: SCOPOLAMINE PATCH REMOVAL TP SCH (07:44)
== END 2017-12-11 20:38 | disposition expired | DRG 871 ==
LOC: EDUNIT# 22:26 → ER 22:27 → ICU 12-02 00:10 → 4TH 12-09 07:30
PROVIDERS: ADMIT Internal Medicine; ATTEND Internal Medicine
PROC: 0JPT32Z Removal of Monitoring Device from Trunk Subcutaneous Tissue and Fascia, Percutaneous Approach (ICD-10-PCS; principal; 2017-12-02)
DX: A41.9 Sepsis, unspecified organism (principal); R65.20 Severe sepsis without septic shock; J18.9 Pneumonia, unspecified organism; I21.4 Non-ST elevation (NSTEMI) myocardial infarction; N30.01 Acute cystitis with hematuria; J96.20 Acute and chronic respiratory failure, unspecified whether with hypoxia or hypercapnia; J44.0 Chronic obstructive pulmonary disease with (acute) lower respiratory infection; Z66 Do not resuscitate; Z51.5 Encounter for palliative care; E87.2 Acidosis; I25.10 Atherosclerotic heart disease of native coronary artery without angina pectoris; I48.0 Paroxysmal atrial fibrillation; N17.9 Acute kidney failure, unspecified; K56.7 Ileus, unspecified; K56.600 Partial intestinal obstruction, unspecified as to cause; K59.00 Constipation, unspecified; T85.898A Other specified complication of other internal prosthetic devices, implants and grafts, initial encounter; I35.0 Nonrheumatic aortic (valve) stenosis; C61 Malignant neoplasm of prostate; I10 Essential (primary) hypertension; I44.1 Atrioventricular block, second degree; M19.91 Primary osteoarthritis, unspecified site; D64.9 Anemia, unspecified; E78.00 Pure hypercholesterolemia, unspecified; I69.322 Dysarthria following cerebral infarction; I69.320 Aphasia following cerebral infarction; N40.0 Benign prostatic hyperplasia without lower urinary tract symptoms; R97.20 Elevated prostate specific antigen [PSA]; Z87.891 Personal history of nicotine dependence; Z79.01 Long term (current) use of anticoagulants
CPT/HCPCS: 36415; 36600; 51702; 71045; 74178; 80048; 80053; 81000; 82274; 82805; 82962; 83605; 83735; 83880; 84100; 84484; 85007; 85025; 85027; 85610; 85730; 86141; 87040; 87081; 87088; 93005; 93970; 94640; 94660; 94760; 96374